=== PATIENT | female | born 1990 | race Caucasian/White ===

== ENCOUNTER 2020-03-03 13:57 | Outpatient (CLI) | payer OTHER, SELFPAY ==
[2020-03-03 15:24] LABS: Thyroid Stimulating Hormone 0.81 uIU/mL (0.36-3.74)
== END 2020-03-03 13:58 | disposition home or self-care (01) ==
LOC: CHSLAB 13:58
PROVIDERS: PCP Nurse Practitioner Family; Visit Provider Nurse Practitioner Family
DX: E03.9 Hypothyroidism, unspecified (principal)
CPT/HCPCS: 36415; 84443

== ENCOUNTER 2020-03-31 15:40 | Outpatient (CLI) | payer OTHER, SELFPAY ==
--- NOTE | ~2020-03-31 | CT_ITS ---
EXAMINATION: CT abdomen pelvis w con EXAM DATE: 03/31/2020 16:31 INDICATION: Periumbilical abdominal pain TECHNIQUE: Spiral CT of the abdomen and pelvis was performed following intravenous injection of 100 m L Omnipaque 350. Axial, coronal and sagittal images were reviewed. The dose-length product (DLP) fo r this examination was 929.70 mGy-cm. The exposure was tailored according to patient size (auto mA e xposure control), and iterative reconstruction (ASIR) was used as additional dose reduction technique . There is no prior study for comparison. FINDINGS: Small to moderate amount of free pelvic fluid which is proteinaceous in 34 Hounsfield units , could be from a recently ruptured right ovarian hemorrhagic cyst. The liver, spleen, adrenal gland s and pancreas are unremarkable. Gallbladder is unremarkable. No biliary obstruction. Mild left-si ded caliectasis without genitourinary calcification or obstruction suspected. Probably phasic. The u terus is unremarkable. The bladder is unremarkable. There is no retroperitoneal or pelvic lymphade nopathy. Small amount of abdominal wall dehiscence of the umbilicus. The appendix is normal. The stomach and small bowel are unremarkable. There is expected amount of c olonic stool. No free intraperitoneal gas. The heart is normal in size. There are no pericardial or pleural effusions. The lung bases are unremarkable. The bones are unremarkable. IMPRESSION: 1. Small to moderate proteinaceous free pelvic fluid most likely from recently ruptured right ovaria n hemorrhagic cyst. 2. Mild left-sided caliectasis probably phasic. 3. Small subumbilical abdominal wall dehiscence. Reviewed, dictated and finalized at location A. IMPRESSION: 1. Small to moderate proteinaceous free pelvic fluid most likely from recently ruptured right ovarian hemorrhagic cyst. 2. Mild left-sided caliectasis probably phasic. 3. Small subumbilical abdominal wall dehiscence.
[2020-03-31 16:11] LABS: Estimated Glomerular Filt Rate > 60
== END 2020-03-31 15:41 | disposition home or self-care (01) ==
LOC: CHSIMG 15:42
PROVIDERS: PCP Nurse Practitioner Family; Visit Provider Nurse Practitioner Family
DX: R10.33 Periumbilical pain (principal); R10.31 Right lower quadrant pain; K62.89 Other specified diseases of anus and rectum
CPT/HCPCS: 74177; Q9965

== ENCOUNTER 2020-07-19 10:28 | Outpatient (CLI) | payer OTHER, SELFPAY ==
[2020-07-19 11:12] LABS: Hematocrit 37.5 % (37.0-47.0); Hemoglobin 12.6 g/dL (12.0-15.0)
== END 2020-07-19 10:29 | disposition home or self-care (01) ==
PROVIDERS: Anesthesiology; PCP Nurse Practitioner Family; Visit Provider Obstetrics & Gynecology
DX: Z01.812 Encounter for preprocedural laboratory examination (principal); Z87.42 Personal history of other diseases of the female genital tract
CPT/HCPCS: 36415; 85014; 85018

== ENCOUNTER 2020-07-24 00:21 | Outpatient (CLI) | payer OTHER, SELFPAY ==
[2020-07-24 17:37] LABS: SARS-CoV-2 RNA PCR Negative
== END 2020-07-24 00:22 | disposition home or self-care (01) ==
LOC: ANHCOVIDDT 00:22
PROVIDERS: PCP Nurse Practitioner Family; Visit Provider Obstetrics & Gynecology
DX: Z01.812 Encounter for preprocedural laboratory examination (principal); Z20.828 Contact with and (suspected) exposure to other viral communicable diseases
CPT/HCPCS: 87635; C9803; U0003

== ENCOUNTER 2020-07-27 00:20 | Day surgery (SDC) | payer OTHER, SELFPAY ==
[2020-07-27] MEDS: ACETAMINOPHEN 500 MG TABLET 1000 MG PO (06:37)
[2020-07-27] MEDS: LACTATED RINGERS 1,000 ML 30 ML IV CONT (06:37)
[2020-07-27 06:44] VITALS: BP 115/78; PULSE 70; TEMP 36.6; O2SAT 100
--- NOTE | 2020-07-27 07:10 | WPDHPUPDATE1 ---
History and Physical Update Update Date/Time: 07/27/20 07:10 History and Physical has been reviewed, including an updated exam of the patient. There are NO changes in the patient's condition. Risks, benefits, and alternatives have been discussed and questions answered. Patient agrees to proceed with procedure.
--- NOTE | 2020-07-27 07:15 | WPDANESEPPF ---
Anes - Initial Pre Proc Eval Procedure: Operation Date: 07/27/20 07:30 Proposed Procedures p Hysteroscopy with Endometrial Ablation - Dirk Guallpa MD Date/Time: 07/27/20 07:15 Surgeon: Dirk Guallpa MD Pre Op Diagnosis: menorrhaghia Patient Data Age: 29 Gender: F Height: 5 ft 4 in Weight: 77.45 kg Last Vital Signs Temp 97.8 F 07/27/20 06:44 Pulse 70 07/27/20 06:44 BP 115/78 07/27/20 06:44 Pulse Ox 100 07/27/20 06:44 Allergies Allergy/AdvReac Type Severity Reaction Status Date / Time No Known Allergies Allergy Verified 07/14/20 13:28 Home Medications Medication Instructions Recorded Confirmed Type levothyroxine 88 mcg tablet 88 mcg PO DAILY #30 tablet 05/31/20 07/27/20 Rx Patient hx anesthesia problems: none Family hx anesthesia problems: none PMFSH Past Medical History Medical History (Updated 03/31/20 @ 20:36 by Guillermina Baxter NP) Hypothyroidism Obesity (BMI 30.0-34.9) Surgical History Surgical History History of tubal ligation 6-17-18 Family History Family History Mother Family history of hypothyroidism Family history of type 2 diabetes mellitus Hypertension Father Hypertension Social History Social History Smoking status: Never smoker Additional living arrangements comments: . 2 Children. 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 Questions were solicited and answers provided to the satisfaction of the patient/family/POA.
[2020-07-27] MEDS: KETOROLAC 30 MG/ML VIAL (*BKC) IV PUSH (07:44)
[2020-07-27 07:50] VITALS: BP 108/62; PULSE 63; RESP 12; O2SAT 100
--- NOTE | 2020-07-27 07:55 | PM.PROC ---
Procedure Note - Detailed Date of procedure: 07/27/20 Pre-op diagnosis: menorrhaghia Post-op diagnosis: same Procedure performed: Hysteroscopy D&C, endometrial ablation Description of procedure: The patient was taken the operating room. She has prepped and draped in the dorsal lithotomy position. Speculum was placed the vagina. The cervix grasped with a tenaculum. The cervix was injected at 3 and 9:00 a.m. with 1% lidocaine. The hysteroscope was inserted the intrauterine cavity through the cervix. The above findings were noted. The hysteroscope and uterine sound were used to calculate endometrial cavity length. The endometrial cavity length was entered into the device hand piece. The endometrial cavity was curettaged thoroughly with a medium-size curette. All surfaces were curettaged. The sample was sent to pathology. The device was placed in the intrauterine cavity and the array was expanded. The balloon cuff was inflated. The power and safety checks were initiated. Never completed the array was collapsed and the balloon cuff was collapsed. The device was withdrawn. The hysteroscope was inserted back into the intrauterine cavity and well desiccated endometrial cavity was observed. The speculum was removed. The tenaculum was removed. The patient tolerated procedure well. She is take covering stable condition. Anesthesia: MAC Surgeon: Dirk Guallpa MD Estimated blood loss (mL): 15 Drains: No Packing: No Pathology: yes Complications: No immediate complications Condition: stable Disposition: PACU Findings: Normal appearing vulva vagina and cervix., normal-appearing intrauterine cavity.
[2020-07-27 08:20] VITALS: BP 118/69; PULSE 70; RESP 12; O2SAT 100
[2020-07-27] MEDS: oxyCODONE HCL (*CRX) 5 MG TAB IR PO (08:39)
[2020-07-27 08:50] VITALS: BP 111/69; PULSE 56
== END 2020-07-27 09:18 | disposition home or self-care (01) ==
PROVIDERS: PCP Nurse Practitioner Family; Visit Provider Obstetrics & Gynecology
PROC: 0U5B8ZZ Destruction of Endometrium, Via Natural or Artificial Opening Endoscopic (ICD-10-PCS; CPT 58563; principal; 2020-07-27 07:30)
DX: N92.0 Excessive and frequent menstruation with regular cycle (principal); E03.9 Hypothyroidism, unspecified
CPT/HCPCS: 58563; A9270; J1100; J1885; J2250; J2405; J2704; J3010; J7030; J7120

== ENCOUNTER 2020-09-15 16:05 | Outpatient (CLI) | payer OTHER, SELFPAY ==
[2020-09-15 17:26] LABS: Thyroid Stimulating Hormone 0.88 uIU/mL (0.36-3.74)
== END 2020-09-15 16:06 | disposition home or self-care (01) ==
LOC: CHSLAB 16:07
PROVIDERS: PCP Nurse Practitioner Family; Visit Provider Family Medicine
DX: E03.9 Hypothyroidism, unspecified (principal)
CPT/HCPCS: 36415; 84443

== ENCOUNTER 2021-09-23 10:28 | Outpatient (CLI) | payer OTHER, SELFPAY ==
[2021-09-23 11:12] LABS: Thyroid Stimulating Hormone Reflex 0.88 u/IU/mL (0.36-3.74)
== END 2021-09-23 10:29 | disposition home or self-care (01) ==
LOC: CHSLAB 10:29
PROVIDERS: PCP Nurse Practitioner Family; Visit Provider Nurse Practitioner Family
DX: E03.9 Hypothyroidism, unspecified (principal)
CPT/HCPCS: 36415; 84443

== ENCOUNTER 2021-12-21 15:56 | Outpatient (CLI) | payer OTHER, SELFPAY ==
[2021-12-21 16:10] LABS: Basophils Absolute Auto 0.03 K/mm3 (0.00-0.10); Basophils Percent Auto 0.4 % (0.0-1.0); Eosinophils Absolute Auto 0.23 K/mm3 (0.02-0.50); Hematocrit 38.3 % (35.0-49.0); Hemoglobin 13.1 g/dL (12.0-15.0); Immature Granulocyte Absolute 0.03 K/mm3 (0.00-0.00); Immature Granulocyte Percent A 0.4 % (0.0-0.0); Lymphocytes Absolute Auto 2.58 K/mm3 (1.10-4.50); Lymphocytes Percent Auto 33.9 % (18.0-42.0); Mean Corpuscular HGB Conc 34.2 g/dL (32.0-36.0); Mean Corpuscular Hemoglobin 29.8 pg (27.0-31.0); Mean Platelet Volume 8.9 fl (9.2-11.8); Monocytes Absolute Auto 0.51 K/mm3 (0.10-0.90); Monocytes Percent Auto 6.7 % (2.0-11.0); Neutrophils Absolute Auto 4.2 K/mm3 (1.7-7.2); Neutrophils Percent Auto 55.6 % (50.0-70.0); Platelet Count Result 220 K/mm3 (150-420); Red Cell Distribution Width 11.9 % (11.6-14.4); White Blood Count 7.6 K/mm3 (4.8-10.8)
[2021-12-21 16:54] LABS: Alanine Aminotransferase 18 U/L (14-59); Albumin Level 3.9 g/dL (3.4-5.0); Alkaline Phosphatase 57 U/L (46-116); Anion Gap 7 mmol/L (8-16); Aspartate Amino Transferase 11 U/L (15-37); Bilirubin,Total 0.3 mg/dL (0.00-1.00); Blood Urea Nitrogen 17 mg/dL (7-18); Calcium 8.8 mg/dL (8.5-10.1); Carbon Dioxide 29 mmol/L (21-32); Chloride 103 mmol/L (98-108); Estimated Glomerular Filt Rate > 60; Glucose 90 mg/dL (70-99); Osmolality Calculated 289 mOsm/kg (285-295); Potassium 3.9 mmol/L (3.5-5.1); Sodium 139 mmol/L (136-145); Thyroid Stimulating Hormone 0.62 uIU/mL (0.36-3.74)
[2021-12-24 13:49] LABS: Vitamin D 25 Hydroxy 25 ng/mL (30-100)
== END 2021-12-21 15:57 | disposition home or self-care (01) ==
LOC: CHSLAB 15:58
PROVIDERS: PCP Nurse Practitioner Family; Visit Provider Nurse Practitioner Family
DX: R53.83 Other fatigue (principal); E03.9 Hypothyroidism, unspecified
CPT/HCPCS: 36415; 80053; 82306; 84443; 85025

== ENCOUNTER 2022-12-16 08:46 | Outpatient (CLI) | payer BC, SELFPAY | END 2022-12-16 08:47 | disposition home or self-care (01) | PROVIDERS: PCP Nurse Practitioner Family; Visit Provider Obstetrics & Gynecology | DX: N94.6 Dysmenorrhea, unspecified (principal); Z01.818 Encounter for other preprocedural examination | CPT/HCPCS: 36415; 86850; 86900; 86901 ==

== ENCOUNTER 2022-12-20 00:55 | Day surgery (SDC) | payer BC, SELFPAY ==
[2022-12-11 14:37] VITALS: BMI 31.2
--- NOTE | 2022-12-11 14:42 | PC.NURSE ---
Report to the Outpatient Waiting Room, entrance under the green pavilion located off [facility], at time 6:30 on date 12/20/22. Planned Procedure Time: 8:30. Time changes happen often and if your time is changed the preop area will call you the afternoon before. - You and your visitor will be asked to self-screen and do not enter if you have any COVID symptoms. - Only one visitor is requested with a max of two and NO children visitors are allowed at this time. - The patient visitor may be requested to leave or wait in car when not with patient due to distancing restrictions. - A mask is optional within the hospital at this time. Patients may have clear liquids (water, carbonated beverages, clear teas, apple juice) until 3 hours prior to surgery (5:30) with a maximum of 20 ounces. - No food from midnight until time of surgery Take the following medications with a SIP of water the morning of surgery: LEVOTHYROXINE DO NOT STOP ANY OF YOUR OTHER PRESCRIPTION MEDICATIONS PRIOR TO SURGERY EXCEPT THE FOLLOWING Medications to discontinue per physician: VITAMINS/SUPPLEMENTS Date to take last dose: 12/16/22 Please no make-up, nail ugandan, hairspray, perfume, deodorant, or body powder the day of surgery. No jewelry (including any body piercings) or valuables the day of surgery, leave them at home. Please take a shower or bath the night before, or the morning of, surgery with an antibacterial soap. Wear comfortable, loose fitting clothing. - Jewelry must be removed prior to entering the operating room. Rings and piercings that are not removed may be cut off. - The hospital will not accept responsibility for valuables. - Please leave all valuables, including medications, at home the day of surgery. If you are going home after surgery, a licensed public transit trolley driver must drive you home. - NO public transportation without another adult if you receive anesthesia. - We recommend that an adult stay with you for 24 hours following discharge. - We also recommend that you do not drive, make important decision, drink alcoholic beverages, or take any drugs that were not prescribed by your health care provider for at least 24 hours after your discharge time. Follow any additional instructions given to you from your surgeon. If you or anyone in your household have experienced Covid symptoms in the past week, please notify your surgeon or the nurse liaison at the phone number below for possible testing. Telephone instructions given to PT - ISABELLA ALVAREZ and asked if any additional questions and then verbalized understanding. Patient advised to call surgeon office or pre surgery nurse liaison [phone] if any additional questions.
[2022-12-20] VITALS (18 sets, daily range): BP systolic 101–117; BP diastolic 57–78; PULSE 55–91; RESP 10–18; TEMP 36.4–37.7; O2SAT 98–100
[2022-12-20] MEDS: ACETAMINOPHEN 500 MG TABLET 1000 MG PO (07:15)
[2022-12-20] MEDS: KETOROLAC 15 MG/ML VIAL (*BKC) IV PUSH (07:17)
[2022-12-20] MEDS: LACTATED RINGERS 1,000 ML 30 ML IV CONT ×2 (07:35→10:43)
--- NOTE | 2022-12-20 07:45 | P.PNAN_ITS ---
Anes - Initial Pre Proc Eval Procedure: Operation Date: 12/20/22 08:30 Proposed Procedures p Laparoscopic Hysterectomy with Bilateral Salpingectomy - Dirk Guallpa MD Date/Time: 12/20/22 07:45 Surgeon: Dirk Guallpa MD Pre Op Diagnosis: dysmenorrhea Patient Data Age: 32 Gender: F Height: 1.63 m Weight: 82.55 kg Allergies Allergy/AdvReac Type Severity Reaction Status Date / Time No Known Allergies Allergy Verified 12/11/22 14:36 Home Medications Medication Instructions Recorded Confirmed Type levothyroxine 88 mcg tablet See Rx Instructions .Route 06/22/22 12/11/22 Rx .COMPLEX #90 tabs multivit,Ca,iron,cfa-JU-gcxiyuv-caff 1 tablet PO DAILY 12/11/22 12/11/22 History 300 mg-18 mg-400 mcg-50 mg tablet (One Daily Women's Metabolism) Patient hx anesthesia problems: none Family hx anesthesia problems: none Results Review: All pre-operative results and documents have been reviewed as part of the pre- operative evaluation. [facility] Past Medical History Medical History Abdominal pain Hypothyroidism Obesity (BMI 30.0-34.9) Periumbilical pain Ruptured ovarian cyst Skin rash Surgical History Surgical History History of tubal ligation 6-17-18 Family History Family History Mother Family history of hypothyroidism Family history of type 2 diabetes mellitus Hypertension Father Hypertension Social History Social History Smoking status: Never smoker Alcohol intake: never Substance use: never Substance use type: does not use Living arrangements: with family Additional living arrangements comments: . 2 Children. 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 Informed Consent: The patient's anesthetic plan and its attendant risks and benefits were discussed with the patient/family/POA. Questions were solicited and answers provided to the satisfaction of the patient/family/POA.
--- NOTE | 2022-12-20 08:04 | WPDHPUPDATE1 ---
History and Physical Update Update Date/Time: 12/20/22 08:04 History and Physical has been reviewed, including an updated exam of the patient. There are NO changes in the patient's condition. Risks, benefits, and alternatives have been discussed and questions answered. Patient agrees to proceed with procedure.
[2022-12-20] MEDS: ceFAZolin 2 GM/D5W 50 ML 2 GM/50 ML BAG IVPB (08:32)
[2022-12-20] MEDS: ceFAZolin SODIUM 1 GM VIAL (09:11)
--- NOTE | 2022-12-20 10:41 | W.PM.PROC2 ---
Procedure Note - Detailed Date of Procedure 12/20/22 Pre-op Diagnosis dysmenorrhea Post-op Diagnosis Same Procedure Performed Total laparoscopic hysterectomy. Surgeon Dirk Guallpa MD Anesthesia General Indications painful menses Findings enlarged boggy uterus, no discrete fibroids, but uterus suggestive of myoma, normal-appearing ovaries. Normal-appearing tubes Description of Procedure This patient was taken to the operating room. She was prepped and draped in the dorsal lithotomy position after induction of general anesthesia. The uterine manipulator and Loretta cup were placed. This was done with a speculum and tenaculum. The speculum was placed. The cervix was grasped with a tenaculum. The stay sutures were placed at 3 and 9:00 a.m.. The stay sutures of 0 Vicryl were brought through the appropriately sized Loretta cup. The tip of the MICKEY manipulator was placed in the intrauterine cavity. The cup was slid into place around the cervix and into the fornices. It was locked into place. The sutures were then wrapped around the handle and tied under tension. A 5 mm skin incision was made in the left upper quadrant the abdomen. A 5 mm trocar was inserted into the intrauterine cavity under direct visualization of the scope. Pneumoperitoneum was achieved. A left lower quadrant 11 mm incision was made with scalpel. An 11 mm trocar was inserted into the anterior abdominal cavity under direct visualization the scope. A 5 mm infraumbilical incision was made with a scalpel and a 5 mm trocar was inserted the intra-abdominal cavity under direct visualization of the scope. Bilateral ureteral lysis was performed. This was done from the pelvic brim down to the uterine artery. This was done with careful dissection using sharp and blunt dissection. The fallopian tubes were removed bilaterally. The mesosalpinx around the fallopian tubes were cauterized transected with LigaSure cautery. This was done in a bilateral fashion from the ovary to the uterine cornua. The fallopian tube was transected at the uterine cornu and amputated. The tube was taken out the left lower quadrant trocar site. In a stepwise fashion along the lateral aspects of the uterus the round ligament and broad ligaments were cauterized transected down to the level of the uterine arteries. A bladder flap was created in the bladder was moved distally to the end of the cervix and over the Loretta cup. The bilateral uterine arteries were cauterized and transected. Colpotomy was then performed. In a circumferential fashion the vagina was transected using unipolar cautery. The incision was made down on the Loretta cup. The uterus and cervix were taken out through the vagina. A pneumo occluder was placed in the vagina. The vaginal cuff was closed with a 0 V lock suture in a running fashion. The pelvis was irrigated with copious amounts antibiotic irrigation. The ureters were again examined and found to be intact and flowing freely under the uterine arteries into the bladder. The bladder was intact. It was examined directly. The vagina was irrigated with Betadine solution after removal of the Pneumo occluder. The patient was taken to recovery room. She was stable condition. Sponge lap and needle counts were correct x2. Estimated Blood Loss 200 Drains Yes Packing No Pathology Yes Complications No immediate complications Condition Stable Disposition Floor
[2022-12-20] MEDS: fentaNYL CITRATE INJ (*CRX) 100 MCG/2 ML VIAL 25 MCG IV PUSH ×8 (11:13→12:01)
[2022-12-20] MEDS: ONDANSETRON INJ 4 MG/2 ML VIAL IV PUSH (12:25)
[2022-12-20] MEDS: HYDROmorphone HCL INJ (*CRX) 1 MG/ML SYR 0.25 MG IV PUSH ×2 (12:26→12:33)
[2022-12-20] MEDS: diphenhydrAMINE HCl INJ 50 MG/ML VIAL 25 MG IV PUSH (13:31)
[2022-12-20] MEDS: DEXTROSE 5%/0.45% SOD CHL 1,000 ML 125 ML IV CONT (14:06)
[2022-12-20] MEDS: KETOROLAC 30 MG/ML VIAL (*BKC) IV PUSH (14:10)
--- NOTE | 2022-12-20 14:25 | OBPPTRN ---
1346 Patient transferred to post room #289 via bed. Support person present. Oriented to unit, room, information board, admission packet and security measures. Patient verbalizes understanding.
[2022-12-20] MEDS: HYDROcodone/acetaminophen (*CRX) 5-325 MG TABLET 1 TAB PO (18:32)
[2022-12-21] MEDS: HYDROcodone/acetaminophen (*CRX) 5-325 MG TABLET 1 TAB PO ×3 (02:01→10:39)
[2022-12-21] MEDS: IBUPROFEN 600 MG TABLET PO ×2 (02:02→10:40)
[2022-12-21 04:00] VITALS: BP 113/67; PULSE 84; RESP 18; TEMP 37.2; O2SAT 99
[2022-12-21 07:00] VITALS: BP 109/70; PULSE 74; RESP 16; TEMP 36.8; O2SAT 100
--- NOTE | 2022-12-21 08:32 | PM.GYNPNOP ---
PHOTOFLASH POWDER MIXER - A/P Postoperative Procedures: Procedures Operation Date: 12/20/22 08:30 Actual Procedure Side Surgeon p Laparoscopic Hysterectomy with Bilateral Salpingectomy Bilateral Dirk Guallpa MD Postoperative day: 1 Postoperative status: doing well Postoperative plan: see orders Time Spent With Patient Time: Total time spent is greater than 50% in coordination of care (as documented) at patient's floor/unit and/or counseling patient: Time with patient: less than 15 minutes PHOTOFLASH POWDER MIXER- PN:Subj Post-Op Subjective Date/time seen: 12/21/22 08:32 Subjective: patient reports feeling better, patient has no complaints and pain is well controlled Exam Const: General: healthy appearing, comfortable and no acute distress Resp: Auscultation: clear to auscultation bilaterally, no rales, no rhonchi and no wheezes Cardio: Rate: regular rate Heart sounds: no click, no murmurs and no rubs GI: Inspection: non-distended Auscultation: normal bowel sounds Extrem: General: normal to inspection, no pedal edema and no calf tenderness PHOTOFLASH POWDER MIXER - PN: Obj Data Vital Signs Vital Signs: Vital Signs - 24 hr 12/20/22 10:43 12/20/22 10:55 12/20/22 11:00 Temperature 97.5 F L Pulse Rate 59 L 62 76 Respiratory Rate 15 15 14 Blood Pressure 105/64 113/73 113/76 Pulse Oximetry 100 100 100 Oxygen Delivery Simple Face Mask Simple Face Mask Simple Face Mask Oxygen Flow Rate 8 8 8 12/20/22 11:15 12/20/22 11:30 12/20/22 11:45 Temperature Pulse Rate 61 63 55 L Respiratory Rate 14 12 10 L Blood Pressure 113/63 117/77 108/73 Pulse Oximetry 100 99 99 Oxygen Delivery Simple Face Mask Room Air Room Air Oxygen Flow Rate 8 12/20/22 12:00 12/20/22 12:30 12/20/22 12:45 Temperature Pulse Rate 83 60 65 Respiratory Rate 16 12 18 Blood Pressure 113/68 105/61 101/58 L Pulse Oximetry 100 100 100 Oxygen Delivery Room Air Room Air Room Air Oxygen Flow Rate 12/20/22 13:00 12/20/22 13:15 12/20/22 12:15 Temperature Pulse Rate 60 59 L 64 Respiratory Rate 12 14 16 Blood Pressure 104/62 104/68 117/67 Pulse Oximetry 98 98 100 Oxygen Delivery Room Air Room Air Room Air Oxygen Flow Rate 12/20/22 13:30 12/20/22 14:30 12/20/22 13:50 Temperature 98.1 F Pulse Rate 61 58 L Respiratory Rate 14 16 Blood Pressure 104/66 113/62 Pulse Oximetry 100 100 Oxygen Delivery Room Air Room Air Oxygen Flow Rate 12/20/22 16:30 12/20/22 16:30 12/20/22 20:00 Temperature 98.7 F 99.9 F H Pulse Rate 62 91 Respiratory Rate 16 18 Blood Pressure 105/64 116/63 Pulse Oximetry 98 100 Oxygen Delivery Room Air Oxygen Flow Rate 12/20/22 20:00 12/20/22 23:40 12/20/22 23:40 Temperature 98.5 F Pulse Rate 91 90 90 Respiratory Rate 18 18 18 Blood Pressure 108/57 L Pulse Oximetry 100 99 99 Oxygen Delivery Room Air Room Air Oxygen Flow Rate 12/21/22 04:00 12/21/22 04:00 12/21/22 07:00 Temperature 98.9 F 98.2 F Pulse Rate 84 84 74 Respiratory Rate 18 18 16 Blood Pressure 113/67 109/70 Pulse Oximetry 99 99 100 Oxygen Delivery Room Air Oxygen Flow Rate 12/21/22 07:00 Temperature Pulse Rate 74 Respiratory Rate 16 Blood Pressure Pulse Oximetry 100 Oxygen Delivery Room Air Oxygen Flow Rate Intake/Output Intake/Output: Intake & Output 12/18/22 12/19/22 12/20/22 12/21/22 23:59 23:59 23:59 23:59 Intake Total 1700 Output Total 1000 Balance 700 Meds/Results Medications: Active Medications Generic Name Dose Route Start Last Admin Trade Name Freq PRN Reason Stop Dose Admin Hydrocodone Bitart/Acetaminophen 1 tab 12/20/22 13:41 12/21/22 06:55 Hydrocodone/Acetaminophen (*Crx) 5-325 Mg Tablet PO 1 tab Q3H PRN Administration Pain Rated 5 or Less Hydrocodone Bitart/Acetaminophen 1 tab 12/20/22 13:41 Hydrocodone/Acetaminophen (*Crx) 10-325 Mg Tablet PO Q3H PRN Pain Rated 6 or Greater Dextrose/Sodium Chloride 1,000 mls @ 125 mls/hr 12/20/22 13:41
--- NOTE | 2022-12-21 09:24 | WPDANESPN ---
Anes - Prog Note Post-Op Date/Time: 12/21/22 09:24 Cardiovascular status: normal Respiratory status: normal Airway patency: baseline Mental status: baseline Post-Op hydration status: normal Vital Signs: Last Vital Signs Temp 98.2 F 12/21/22 07:00 Pulse 74 12/21/22 07:00 Resp 16 12/21/22 07:00 BP 109/70 12/21/22 07:00 Pulse Ox 100 12/21/22 07:00 O2 Del Method Room Air 12/21/22 07:00 O2 Flow Rate 8 12/20/22 11:15 Pain Score (VAS): 0 I/O: Intake & Output 12/20/22 12/21/22 12/21/22 23:59 07:59 15:59 Intake Total 800 Output Total 1000 Balance -200 Post-procedural complaints: none Patient Feedback: Patient satisfied with anesthetic care.
== END 2022-12-21 11:07 | disposition home or self-care (01) ==
LOC: ANHSURGERY 06:23 → ANHOB2 13:57
PROVIDERS: PCP Nurse Practitioner Family; Visit Provider Obstetrics & Gynecology
PROC: 0UT9FZZ Resection of Uterus, Via Natural or Artificial Opening With Percutaneous Endoscopic Assistance (ICD-10-PCS; CPT 58571; principal; 2022-12-20 08:30)
DX: D25.1 Intramural leiomyoma of uterus (principal); N94.6 Dysmenorrhea, unspecified; E03.9 Hypothyroidism, unspecified; E66.9 Obesity, unspecified; Z68.32 Body mass index [BMI] 32.0-32.9, adult
CPT/HCPCS: 58571; 88307; 99199; A9270; J0690; J1100; J1170; J1200; J1885; J2250; J2405; J2704; J3010; J7030; J7120

== ENCOUNTER 2024-11-03 08:37 | Emergency (ER) | payer OTHER, SELFPAY ==
--- NOTE | 2024-11-03 08:53 | ED.URI ---
HPI - URI/Sore Throat General Chief Complaint: Upper Respiratory Infection Stated Complaint: Congestion,Cough,Fatigue Source: patient, RN notes reviewed and old records reviewed Mode of arrival: ambulatory Limitations: no limitations History of Present Illness HPI Narrative: patient presents with 5 days fever, cough, nasal congestion. She reports that her tested positive for COVID last week, shortly after that she began symptoms. She reports that she feels as though symptoms are worsening. She complains of wheezing, productive cough, hoarse voice. She does have associated body aches, headache. She reports that she has been taking NyQuil and Sudafed with moderate relief. She voices no other concerns or complaints today Related Data Home Medications ?Medication ?Instructions ?Recorded ?Confirmed ?Last Taken ?Type phentermine 15 mg capsule mg 11/03/24 Unknown History Allergies Allergy/AdvReac Type Severity Reaction Status Date / Time No Known Allergies Allergy Verified 11/03/24 08:57 Review of Systems Review of Systems: All systems reviewed & are unremarkable except as noted in HPI and below Constitutional: Constitutional: Reports no additional constitutional complaints, Reports body ache(s), Reports chills, Reports fever(s), Reports headache(s) and Reports lethargy ENT: Reports system reviewed and no additional complaints, except as documented, Reports headache(s), Reports hoarseness, Reports nasal congestion and Reports nasal discharge Cardiovascular: Cardiovascular: Reports no additional cardiovascular complaints Respiratory: Respiratory: Reports no additional respiratory complaints, Reports chest congestion, Reports cough, Reports excessive phlegm production and Reports wheezing Gastrointestinal: Gastrointestinal: Reports no additional gastrointestinal complaints PMFSH Past Medical History Medical History Abdominal pain Hypothyroidism Obesity (BMI 30.0-34.9) Periumbilical pain Ruptured ovarian cyst Skin rash Surgical History Surgical History History of tubal ligation 6-17-18 Family History Family History Mother Family history of hypothyroidism Family history of type 2 diabetes mellitus Hypertension Father Hypertension Social History Social History Smoking status: Never smoker Alcohol intake: never Substance use: never Substance use type: does not use Living arrangements: with family Additional living arrangements comments: . 2 Children. 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 There is no relevant family history pertinent to the patient complaint. Exam Const: General: cooperative, no acute distress, alert and awake Orientation/consciousness: oriented to person, oriented to place and oriented to time HENMT: Head: normal to inspection Ears: TM's normal bilaterally Mouth: Yes moist mucous membranes Throat: posterior oropharynx abnormal erythema Resp: Effort & Inspection: normal respiratory effort and able to speak in complete sentences Auscultation: clear to auscultation bilaterally, no crackles, no rales, no rhonchi and wheezes anterior Cardio: Palpation: normal PMI Rate: regular rate Rhythm: regular rhythm Heart sounds: S1 normal heart sound present and S2 normal heart sound present Neuro: General: oriented to person, oriented to place and oriented to time Cranial nerves: Yes CN's II-XII intact bilaterally Psych: Appearance: grossly normal Thought process: Normal thought process present Insight: Good insight present (Psych) Judgement: Good judgement present (Psych) Course Course Level of Care: Express Care Visit Vital Signs Vital signs: Reviewed MDM - URI/Sore Throat MDM Narrative Medical decision making narrative: patient no respiratory distress, but does have significant anterior wheezes bilaterally on auscultation. Start prednisone burst, Zithromax for added anti-inflammatory properties, albuterol inhaler. Work note provided Discharge instructions reviewed with patient, as well as provided in writing per nursing staff. The instructions also include specific and strict return/GO TO THE ER as well as f/u information. All questions have been answered, and the patient deny any further questions with discharge and discharge plan. Some parts of this dictation were generated by voice recognition software and may contain typographical and/or grammatical inaccuracies. Differential Diagnosis Differential diagnosis: Likely upper respiratory infection, viral infection and bronchitis Medical Records Attestation: I reviewed the patient's medical records. Discharge Plan Discharge Clinical Impression: Bronchitis Patient Disposition: Home, Self-Care Condition: Stable Instructions: Antibiotic Form, Acute Bronchitis (ED) Additional Instructions: Take medication as prescribed. Follow with primary care provider. Emergency department for new or worse symptoms Patient Language: Frisian Prescriptions: New azithromycin 250 mg tablet See Rx Instructions .ROUTE .COMPLEX Qty: 6 0RF Rx Instructions: For 250 mg dose pack: take 500 mg today (day 1), then 250 mg for 4 days (days 2-5) prednisone 50 mg tablet 50 mg PO DAILY Qty: 5 0RF albuterol sulfate [Ventolin HFA] 90 mcg/actuation HFA aerosol inhaler 2 puff inhalation QID PRN (Reason: shortness of breath or wheezing) Qty: 8.5 0RF No Action phentermine 15 mg capsule levothyroxine 88 mcg tablet See Rx Instructions .ROUTE .COMPLEX Qty: 90 0RF Dose Instruction: TAKE 1 TABLET BY MOUTH DAILY Rx Instructions: TAKE 1 TABLET BY MOUTH DAILY Follow-up/Referrals: Marleen,Zuleima Henson APRN [Primary Care Provider] - 2 Weeks Stand Alone Forms: Work/School Release IP Time of Disposition: 09:10
--- OUTSIDE RECORDS SUMMARY | 2024-11-03 08:54 | XMS_ITS | Clinical Summary ---
Author Organization [facility] Address [address] [place] [address]. [place], [place] [id number] [place] [address] Care Team Providers Care Drop Hammer Mechanic Name Role Phone Zuleima Hawley NP Primary Care Provider + [phone] Allergies No known active allergies Medications levothyroxine (SYNTHROID) 88 MCG tabletIndications :Acquired hypothyroidism Take 1 tablet (88 mcg total) by mouth daily. 90 tablet 12/03/19 24 Active Phentermine HCl 15 MG CapIndications:Ob esity (BMI 30-39.9),Hypothyr oidism, unspecified type Take 1 capsule by mouth every morning before breakfast. 30 capsule 10/07/20 24 Active desonide (DESOWEN) 0.05 % Ointment ointment Apply topically 2 (two) times daily. 10/16/19 24 Discontinued benzonatate (TESSALON PERLES) 100 MG capsuleIndication s:Influenza B Take 1 capsule (100 mg total) by mouth 3 (three) times daily as needed. 40 capsule 12/11/19 24 024 Discontinued nystatin (MYCOSTATIN) cream Apply topically 2 (two) times daily. Discontinued LORazepam (ATIVAN) 0.5 MG tablet Discontinued HYDROcodone-aceta minophen (NORCO) 5-325 MG tablet Take 1 tablet by mouth every 6 (six) hours. Discontinued Active Problems Problem Noted Date Diagnosed Date Dyspnea 08/08/2022 Hypothyroidism 08/08/2022 Family history of diabetes mellitus type II 10/2021 Obesity (BMI 30-39.9) 08/08/2022 Nonpurulent mastitis associated with ( [facility]/HCC) 06/23/2019 Overview (10/07/2024): Mastitis associated w/ ;Recorded Elsewhere: No Location: [facility] Source: EHR Chronic: N Practice ID: [id number] Billable Time: 01:00:00 PM Non-proteinuric hypertension of ([facility]/H CC) 03/22/2019 Overview (10/07/2024): Gestatnl htn without significant protein, comp childbirth;Practice ID: [id number] Hyperglycemia during ([facility]) 019 Overview (10/07/2024): Endo, nutritional and metab diseases comp preg, second tri;Practice ID: [id number] Hemorrhage affecting ([facility]) 018 Overview (10/07/2024): Other hemorrhage in early ;Recorded Elsewhere: No Location: [facility] Source: EHR Chronic: N Practice ID: [id number] Billable Time: 04:00:00 PM Missed ([facility]) 06/06/2017 Overview (10/07/2024): Missed ;Recorded Elsewhere: No Location: [facility] Source: EHR Chronic: N Practice ID: [id number] Billable Time: 09:15:00 AM History of tobacco use 03/13/2017 Overweight 03/13/2017 Encounters Date Type Department Care Team Description 10/07/2024 12:16 PM INTERNAL CONTROLS CONSULTANT - 10/07/2024 11:59 PM INTERNAL CONTROLS CONSULTANT Hospital Encounter [facility] [address] [place], [place] [id number] Zuleima Hawley NP Discharge Disposition: Home or Self Care (Routine Discharge) 10/07/2024 7:40 AM INTERNAL CONTROLS CONSULTANT Laboratory Only [facility] Family & Internal Medicine [facility] [address] [place] [address] Zuleima Hawley NP 10/07/2024 7:00 AM INTERNAL CONTROLS CONSULTANT Office Visit [facility] Family & Internal Medicine [facility] [address] [place] [phone] Zuleima Hawley NP Thyroid (Follow up check on my thyroid and weight) 10/07/2024 Travel 10/02/2024 MyChart Message Enc [facility] Family & Internal Medicine [facility] [address] [place] [phone] Zuleima Hawley NP Weight loss question from Last 3 Months Immunizations Name Administration Dates Next Due Dtp 04/20/1992,01/29/1992 Hib 04/20/1992,01/29/1992 Hib (Generic) 04/20/1992,01/29/1992 MMR 03/24/2019,04/20/1992 Opv 01/29/1992 Polio Opv (Generic) 01/29/1992 Tdap (Generic) 02/25/2019 Family History Medical History Relation Comments Depression Father Miscarriages / Stillbirths Maternal Grandmother Stroke Maternal Grandmother Vision loss Maternal Grandmother Depression Mother Diabetes Mother Hypertension Mother Vision loss Mother Slowly losing cl ear eyesight sees spots Relation Status Comments Father Maternal Grandmother Mother Social History Tobacco Use Types Packs/Day Years Used Date Smoking Tobacco: Never Passive Smoke Exposure: Never Smokeless Tobacco: Never Tobacco Cessation:Counseling Given: No Alcohol Use Standard Drinks/Week Comments Never 0 (1 standard drink = 0.6 oz pur e alcohol) PHQ-2 Answer Date Recorded Patient Health Questionnaire-2 Score 0 10/07/2024 Comments No Sex and Gender Information Value Date Recorded Sex Assigned at Female 08/08/2022 9:58 AM CDT Legal Sex Female 1:33 PM INTERNAL CONTROLS CONSULTANT Gender Identity Female 08/05/2022 10:21 AM CDT Sexual Orientation Straight 08/08/2022 9: 58 AM CDT Last Filed Vital Signs Vital Sign Reading Time Taken Comments Blood Pressure 125/87 10/07/2024 7:04 AM INTERNAL CONTROLS CONSULTANT Pulse 72 10/07/2024 7:04 AM INTERNAL CONTROLS CONSULTANT Temperature 36.7 ??C (98.1 ??F) 10/07/2024 7:04 AM CS T Respiratory Rate 16 10/07/2024 7:04 AM INTERNAL CONTROLS CONSULTANT Oxygen Saturation 99% 10/07/2024 7:04 AM INTERNAL CONTROLS CONSULTANT Inhaled Oxygen Concentration - - Weight 90.5 kg (199 lb 9.6 oz) 10/07/2024 7:04 A M INTERNAL CONTROLS CONSULTANT Height 162.6 cm (5' 4 ) 10/07/2024 7:04 AM INTERNAL CONTROLS CONSULTANT Body Mass Index 34.26 10/07/2024 7:04 AM INTERNAL CONTROLS CONSULTANT Plan of Treatment Upcoming Encounters Date Type Department Care Team (Late st Contact Info) Description 11/05/2024 7:20 AM INTERNAL CONTROLS CONSULTANT Office Visit [facility] Family & Internal Medicine [facility] [address] [place] [address] Zuleima Hawley, PLUMBING HARDWARE ASSEMBLER [address] [facility] [address] [facility] [place] [address] Health Maintenance Due Date Last Done Comments Annual Physical 1993 Hepatitis B Vaccines (1 of 3 - 19+ 3-dose series) 2009 PHQ-2 (Physician [place]) 10/08/2024 10/07/2024 COVID-19 Vaccine (1 - 2023-2 5 season) 2025 Postponed from 06/08 (Patient Refused) Influenza Adult (#1) 2025 Postpon ed from 07/08/2024 (Patient Refused) DTaP, Tdap and Td Vaccines ( 2 - Td or Tdap) 02/25/2029 02/25/2019, 04/20/1992, 01/29/1992 Hepatitis C Completed 02/14/2023 HPV Vaccines Aged Out No longer eligi ble based on patient's age to complete this topic Meningococcal B Vaccine Aged Out No l onger eligible based on patient's age to complete this topic Meningococcal Vaccine Aged Out No aleena bert eligible based on patient's age to complete this topic Pneumococcal Vaccine: Pediatrics (0 to 5 Years) and At-Risk Patients (6 to 64 Years) Aged Out No longer eligible b ased on patient's age to complete this topic RSV Immunizations Under 20 Months Aged Out No longer eligible b ased on patient's age to complete this topic Procedures Procedure Name Priority Date/Time Associated Diagnosis Comments COLLECTION VENOUS BLOOD VENIPUNCTURE Routine 10/07/2024 7:43 AM INTERNAL CONTROLS CONSULTANT Obesity (BMI 30-39.9) Hypothyroidism, unspecified type TSH W/REFLEX Routine 10/07/2024 7:37 AM INTERNAL CONTROLS CONSULTANT Obesity (BMI 30-39.9) Hypothyroidism, unspecified type CBC W/DIFF AUTOMATED Routine 10/07/2024 7:37 AM INTERNAL CONTROLS CONSULTANT Obesity (BMI 30-39.9) Hypothyroidism, unspecified type COMPREHENSIVE METABOLIC PANEL Routine 10/07/2024 7:37 AM INTERNAL CONTROLS CONSULTANT Obesity (BMI 30-39.9) Hypothyroidism, unspecified type HEPATITIS C ANTIBODY Routine 02/14/2023 7:29 AM CDT Encounter for hepatitis C screening test for low risk patient from Last 3 Months or Most Recently Relevant to Health Maintenance Results * TSH W/REFLEX (10/07/2024 7:37 AM INTERNAL CONTROLS CONSULTANT) TSH 0.825 0.358 - 3.74 uIU/ML 10/07/2024 1:19 PM [facility] Comment: HIGH DOSES OF BIOTIN MAY INTERFERE WITH THIS TEST RESULT. CORRELATION TO CLINICAL HISTORY AND PRESENTATION RECOMMENDED. FREE T4 NOT INDICATED 10/07/2024 7:37 AM INTERNAL CONTROLS CONSULTANT us Zuleima Hawley NP LABORATORY Final Result [facility] [address] [place] [address], [place] [phone] * (ABNORMAL) COMPREHENSIVE METABOLIC PANEL (10/07/2024 7:37 AM INTERNAL CONTROLS CONSULTANT) GLUCOSE 83 70 - 99 MG/DL 10/07/2024 1:19 PM INTERNAL CONTROLS CONSULTANT [facility] BUN 13 7 - 18 MG/DL 10/07/2024 1:19 PM [facility] CREATININE S/P/B 0.71 0.55 - 1.02 MG/DL 10/07/2024 1:19 PM [facility] SODIUM S/P/B 143 136 - 145 MMOL/L 10/07/2024 1:19 PM [facility] POTASSIUM S/P/B 4.6 3.5 - 5.1 MMOL/L 10/07/2024 1:19 PM [facility] CHLORIDE S/P/B 105 100 - 108 MMOL/L 10/07/2024 1:19 PM [facility] CO2 30.0 21 - 32 MMOL/L 10/07/2024 1:19 PM [facility] CALCIUM S/P/B 9.2 8.5 - 10.1 MG/DL 10/07/2024 1:19 PM [facility] BILIRUBIN TOTAL S/P/B 0.6 0.2 - 1.2 MG/DL 10/07/2024 1:19 PM [facility] TOTAL PROTEIN S/P/B 7.4 6.4 - 8.2 G/DL 10/07/2024 1:19 PM [facility] ALBUMIN S/P/B 4.1 3.4 - 5.0 G/DL 10/07/2024 1:19 PM [facility] AST 14(L) 15 - 37 U/L 10/07/2024 1:19 PM [facility] ALT 32 14 - 55 U/L 10/07/2024 1:19 PM [facility] ALKALINE PHOSPHATASE S/P/B 66 50 - 136 U/L 10/07/2024 1:19 PM [facility] ANION GAP 8.0 5 - 15 MMOL/L 10/07/2024 1:19 PM [facility] BUN CREATININE RATIO 18.3 6 - 26 10/07/2024 1:19 PM [facility] A/G RATIO 1.2 1.0 - 2.0 RATIO 10/07/2024 1:19 PM [facility] GFR ESTIMATE >90 >90 ML/MIN/1.7 3 M2 10/07/2024 1:19 PM [facility] Comment: NOTE: eGFR is not calculated for patients <18 years of age. This is an estimated GFR calculation using the new CKD EPI creatinine equation without race and so does not require a correction factor for race. This estimated GFR should not be used for calculating drug doses. 10/07/2024 7:37 AM INTERNAL CONTROLS CONSULTANT us Zuleima Hawley NP LABORATORY Final Result [facility] [address] [place] [address], [place] [phone] * (ABNORMAL) CBC W/DIFF AUTOMATED (10/07/2024 7:37 AM INTERNAL CONTROLS CONSULTANT) WBC 7.17 4.4 - 11.0 x10'3/uL 10/07/2024 12:33 PM [facility] RBC 4.60 4.50 - 5.10 x10'6/uL 10/07/2024 12:33 PM [facility] HGB 13.5 12.3 - 15.3 G/DL 10/07/2024 12:33 PM [facility] HCT 39.6 35.9 - 44.6 % 10/07/2024 12:33 PM [facility] MCV 86.1 80.0 - 96.0 FL 10/07/2024 12:33 PM [facility] MCH 29.3 25.3 - 30.9 PG 10/07/2024 12:33 PM [facility] MCHC 34.1 31.0 - 34.1 G/DL 10/07/2024 12:33 PM [facility] RDW 12.3(L) 12.4 - 15.1 % 10/07/2024 12:33 PM [facility] PLT 246 151 - 353 x10'3/uL 10/07/2024 12:33 PM [facility] MPV 9.3(L) 9.6 - 12.0 FL 10/07/2024 12:33 PM [facility] RBC MORPHOLOGY NORMAL 10/07/2024 12:33 PM [facility] PLT MORPH. NORMAL 10/07/2024 12:33 PM [facility] WBC MORPHOLOGY NORMAL 10/07/2024 12:33 PM [facility] LYMPHOCYTES % 28.9 15.8 - 45.0 % 10/07/2024 12:33 PM [facility] NEUTROPHILS % 62.5 42.1 - 71.9 % 10/07/2024 12:33 PM [facility] MONOCYTES % 6.3 5.7 - 12.5 % 10/07/2024 12:33 PM [facility] EOSINOPHILS 1.4 0.0 - 5.6 % 10/07/2024 12:33 PM [facility] BASOPHILS 0.3 0.0 - 1.3 % 10/07/2024 12:33 PM [facility] ABS. NEUTROPHILS 4.49 1.40 - 6.00 x10'3/uL 10/07/2024 12:33 PM [facility] IMMATURE GRANS % 0.6(H) 0.0 - 0.5 % 10/07/2024 12:33 PM [facility] ABS. LYMPHOCYTES 2.07 0.80 - 4.70 x10'3/uL 10/07/2024 12:33 PM [facility] 10/07/2024 7:37 AM INTERNAL CONTROLS CONSULTANT Zuleima Hawley NP LABORATORY Final Result [facility] [address] [place] [address], [place] [phone] * HEPATITIS C AB ([facility] ONLY) (02/14/2023 7:29 AM CDT) HEPATITIS C AB NON-REACTI VE NON-REACTI VE 02/14/2023 4:12 PM CDT [facility] 02/14/2023 7:29 AM CDT Zuleima Hawley PLUMBING HARDWARE ASSEMBLER LABORATORY Final Result Performing Organization Address City/[facility]/ZIP Co de Phone Number [facility] [address] [place] [address], [place] [phone] from Last 3 Months or Most Recently Relevant to Health Maintenance Insurance [facility] Care Teams Drop Hammer Mechanic Relationship Specialty [place] [address] [facility] [place] [address] PCP - General Nurse Practitioner Family 07/31/22
--- OUTSIDE RECORDS SUMMARY | 2024-11-03 08:54 | XMS_ITS | Encounter Summary ---
Author Organization [facility] Address [address] [place] [address]. [place], [place] [address] [place] [address] Care Team Providers Care Development Representative Name Role Phone Zuleima Hawley NP Primary Care Provider [phone] Encounter Details Date Type Department Care Team (Late st Contact Info) Description 08/25/2022 GoLarkhart Message Enc [facility] Family & Internal Medicine [address] [address] [place]uleima [place] [id number] [place] [address] [address] [facility] [place] [address] Lab results Social History Tobacco Use Types Packs/Day Years Used Date Smoking Tobacco: Never Smokeless Tobacco: Never Alcohol Use Standard Drinks/Week Comments Never 0 (1 standard drink = 0.6 oz pur e alcohol) Comments No Sex and Gender Information Value Date Recorded Sex Assigned at Female 08/08/2022 9:58 AM CDT Legal Sex Female 1:33 PM REHAB DIRECTOR OCCUPATIONAL THERAPIST Gender Identity Female 08/05/2022 10:21 AM CDT Sexual Orientation Straight 08/08/2022 9: 58 AM CDT COVID-19 Exposure Response Date Recorded In the last 10 days, have yo u been in contact with someone who was confirmed or suspected to have Coronavirus/COVID-19? No / Unsure 08/08/2022 9:44 AM CDT documented as of this encounter Plan of Treatment Upcoming Encounters Date Type Department Care Team (Late Contact Info) Description 11/05/2024 7:20 AM REHAB DIRECTOR OCCUPATIONAL THERAPIST Office Visit [facility] Family & Internal Medicine - [place] [address] [place] [phone] [place] [address] [facility] [address] [place] [address] documented as of this encounter Visit Diagnoses Not on filedocumented in this encounter Additional Health Concerns Infection Onset Date Last Indicated Resolved Time COVID-19 Rule Out 12/11/2023 12/11/2023 12/11/2023 4:11 PM REHAB DIRECTOR OCCUPATIONAL THERAPIST Influenza - Seasonal 12/11/2023 12/11/2023 024 12:33 AM CDT documented as of this encounter Care Teams Development Representative Relationship Specialty [place] [address] [facility] [address]. [place] [address] PCP - General Nurse Practitioner Family 07/31/22 documented as of this encounter
[2024-11-03 08:55] VITALS: BP 118/79; PULSE 73; RESP 18; TEMP 36.9; O2SAT 100
--- OUTSIDE RECORDS SUMMARY | 2024-11-03 08:55 | XMS_ITS | Encounter Summary ---
Author Organization [facility] Address [address] [place] [address]. [place], [place] [phone] [place] [address] Care Team Providers Care Election Judge Name Role Phone Zuleima Hawley REPAIR SERVICE DISPATCHER Primary Care Provider [phone] Encounter Details Date Type Department Care Team (Late Contact Info) Description 10/02/2024 ExSafehart Message Enc [facility] Family & Internal Medicine [facility] [address] [place] [address] [place] [address] [facility] [address] [place] [address] Weight loss question Social History Tobacco Use Types Packs/Day Years Used Date Smoking Tobacco: Never Passive Smoke Exposure: Never Smokeless Tobacco: Never Alcohol Use Standard Drinks/Week Comments Never 0 (1 standard drink = 0.6 oz pur e alcohol) PHQ-2 Answer Date Recorded Patient Health Questionnaire-2 Score 0 12/15/2022 Comments No Sex and Gender Information Value Date Recorded Sex Assigned at Female 08/08/2022 9:58 AM CDT Legal Sex Female 1:33 PM ART SPECIALIST Gender Identity Female 08/05/2022 10:21 AM CDT Sexual Orientation Straight 08/08/2022 9: 58 AM CDT documented as of this encounter Plan of Treatment Upcoming Encounters Date Type Department Care Team (Late st Contact Info) Description 11/05/2024 7:20 AM ART SPECIALIST Office Visit [facility] Family & Internal Medicine [facility] [address] [place] [address] [place] [address] [place] [address] documented as of this encounter Visit Diagnoses Not on filedocumented in this encounter Care Teams Election Judge Relationship Specialty Start [place] [address] [place] [address] PCP - General Nurse Practitioner Family 07/31/22 documented as of this encounter
--- OUTSIDE RECORDS SUMMARY | 2024-11-03 08:55 | XMS_ITS | Data Portability ---
Author Organization [facility] Address [address] [place] [address] [place] [address] Care Team Providers Care Extra Gang Supervisor Name Role Phone AVA EUFEMIA Primary Care Provider Assessment No assessment recorded. Plan of Treatment Reminders Order Date Submit Date Provider Last Modified By Organization Details Last Modified Time Details Appointments None recorded. Lab urinalysis, dipstick 2022 023 [facility], [address], [place], [address], 3 14:12:57 Referral None recorded. Procedures None recorded. Surgeries robotic assisted hysterectom y with salpingecto my (SURG) 2022 023 [facility], [address] [facility], [place], [address], 3 11:50:15 Imaging US, pelvis [address], [address], [place], [address], 3 13:17:20 US, transvagina l [address], [address], [place], [address], 3 13:17:20 Medication Orders None recorded. Patient TargetsNo targets recorded. Patient InstructionsNo instructions recorded. Reason for Referral None Reported. Results Created Date Observation Date Name Description Value Unit Range Abnormal Flag Note LastModifiedBy Organization Detail LastModifiedTime 11/03/19 23 11/03/2022 CBC W/DIF F WBC 6.9 10'3/ uL 3.6-10 .2 Not Available [facility] (Lab) [address], [place], [address], 11/04/2022 03:11:06 11/03/19 23 11/03/2022 CBC W/DIF F RBC 4.72 10'6/ uL (based on docume nted legal sex) 4.10-5 .30 Not Available [facility] (Lab) [address] [place], [address], 11/04/2022 03:11:06 11/03/19 23 11/03/2022 CBC W/DIF F HGB 13.6 g/dL (based on docume nted legal sex) 11.9-1 5.8 Not Available [facility] (Lab) [address] [place], [address], 11/04/2022 03:11:06 11/03/19 23 11/03/2022 CBC W/DIF F HCT 40.9 % (based on docume nted legal sex) 37.4-4 8.3 Not Available [facility] (Lab) [address] [place], [address], 11/04/2022 03:11:06 11/03/19 23 11/03/2022 CBC W/DIF F MCV 86.7 fL 82.0-9 9.0 Not Available [facility] (Lab) [address] [place], [address], 11/04/2022 03:11:06 11/03/19 23 11/03/2022 CBC W/DIF F MCH 28.8 pg 27.0-3 3.0 Not Available [facility] (Lab) [address] [place], [address], 11/04/2022 03:11:06 11/03/19 23 11/03/2022 CBC W/DIF F MCHC 33.3 g/dL 32.0-3 6.0 Not Available [facility] (Lab) [address], [place], [address], 11/04/2022 03:11:06 11/03/19 23 11/03/2022 CBC W/DIF F RDW 12.6 % 11.0-1 5.0 Not Available [facility] (Lab) [address], [place], [address], 11/04/2022 03:11:06 11/03/19 23 11/03/2022 CBC W/DIF F plt 249 10'3/ uL 150-45 0 Not Available [facility] (Lab) [address], [place], [address], 11/04/2022 03:11:06 11/03/19 23 11/03/2022 CBC W/DIF F MPV 10.3 fL 9.8-12 .7 Not Available [facility] (Lab) [address], [place], [address], 11/04/2022 03:11:06 11/03/19 23 11/03/2022 CBC W/DIF F NRBC's 0.0 % 0 Not Available [facility] (Lab) [address], [place], [address], 11/04/2022 03:11:06 11/03/19 23 11/03/2022 CBC W/DIF F absolute NRBCs 0.0 10'3/ uL 0 Not Available [facility] (Lab) [address] [place], [address], 11/04/2022 03:11:06 11/03/19 23 11/03/2022 CBC W/DIF F neutrophils 57.4 % 37.0-7 2.0 Not Available [facility] (Lab) [address] [place], [address], 11/04/2022 03:11:06 11/03/19 23 11/03/2022 CBC W/DIF F lymphocytes 33.0 % 16.0-4 8.0 Not Available [facility] (Lab) [address], [place], [address], 11/04/2022 03:11:06 11/03/19 23 11/03/2022 CBC W/DIF F monocytes 7.3 % 4.0-14 .0 Not Available [facility] (Lab) [address], [place], [address], 11/04/2022 03:11:06 11/03/19 23 11/03/2022 CBC W/DIF F eosinophils 1.3 % 0.0-9. 0 Not Available [facility] (Lab) [address], [place], [address], 11/04/2022 03:11:06 11/03/19 23 11/03/2022 CBC W/DIF F basophils 0.7 % 0.0-2. 0 Not Available [facility] (Lab) [address], [place], [address], 11/04/2022 03:11:06 11/03/19 23 11/03/2022 CBC W/DIF F immature granulocytes 0.3 % no define d refere nce range Not Available [facility] (Lab) [address], [place], [address], 11/04/2022 03:11:06 11/03/19 23 11/03/2022 CBC W/DIF F absolute neutrophils 4.0 10'3/ uL 1.1-6. 0 Not Available [facility] (Lab) [address], [place], [address], 11/04/2022 03:11:06 11/03/19 23 11/03/2022 CBC W/DIF F absolute lymphocytes 2.3 10'3/ uL 0.7-3. 4 Not Available [facility] (Lab) [address] [facility], [place], [address], 11/04/2022 03:11:06 11/03/19 23 11/03/2022 CBC W/DIF F absolute monocytes 0.5 10'3/ uL 0.3-1. 0 Not Available [facility] (Lab) [address] [facility], [place], [address], 11/04/2022 03:11:06 11/03/19 23 11/03/2022 CBC W/DIF F absolute eosinophils 0.1 10'3/ uL 0.0-0. 6 Not Available [facility] (Lab) [address], [place], [address], 11/04/2022 03:11:06 11/03/1911/03/2022 CBC W/DIF F absolute basophils 0.1 10'3/ uL 0.0-0. 1 Not Available [facility] (Lab) [address], [place], [address], 11/04/2022 03:11:06 11/03/1911/03/2022 CBC W/DIF F absolute immature granulocytes 0.0 10'3/ uL 0.00-0 .10 2022 1:44 AM: P indic ates parti al resul ts on a panel have been relea sed. Addit ional resul ts will follo w. 2022 1:44 AM: This resul t has been final verif ied. No addit ional or aleman ed resul ts are expec prabha. Not Available [facility] (Lab) [address] [facility], [place], [address], 11/04/2022 03:11:06 11/03/1911/03/2022 CMP(C OMPRE HENSI VE METAB OLIC PANEL ) sodium 141 mmol/ L 133-14 6 Not Available [facility] (Lab) [address], [place], [address], 11/04/2022 03:11:06 11/03/19 23 11/03/2022 CMP(C OMPRE HENSI VE METAB OLIC PANEL ) potassium 4.1 mmol/ L 3.5-5. 1 Not Available [facility] (Lab) [address], [place], [address], 11/04/2022 03:11:06 11/03/19 23 11/03/2022 CMP(C OMPRE HENSI VE METAB OLIC PANEL ) chloride 103 mmol/ L 98-107 Not Available [facility] (Lab) [address], [place], [address], 11/04/2022 03:11:06 11/03/19 23 11/03/2022 CMP(C OMPRE HENSI VE METAB OLIC PANEL ) carbon dioxide 28 mmol/ L 21-31 Not Available [facility] (Lab) [address], [place], [address], 11/04/2022 03:11:06 11/03/19 23 11/03/2022 CMP(C OMPRE HENSI VE METAB OLIC PANEL ) anion gap 10 mmol/ L 4-13 Not Available [facility] (Lab) [address], [place], [address], 11/04/2022 03:11:06 11/03/19 23 11/03/2022 CMP(C OMPRE HENSI VE METAB OLIC PANEL ) blood urea nitrogen 15 mg/dL 7-25 Not Available [facility] (Lab) [address], [place], [address], 11/04/2022 03:11:06 11/03/19 23 11/03/2022 CMP(C OMPRE HENSI VE METAB OLIC PANEL ) creatinine 0.71 mg/dL 0.60-1 .30 Not Available [facility] (Lab) [address], [place], [address], 11/04/2022 03:11:06 11/03/19 23 11/03/2022 CMP(C OMPRE HENSI VE METAB OLIC PANEL ) egfrcr (CKD-epi 2020) >90 mL/mi n/1.7 3_m2 >=60 Not Available [facility] (Lab) [address], [place], [address], 11/04/2022 03:11:06 11/03/19 23 11/03/2022 CMP(C OMPRE HENSI VE METAB OLIC PANEL ) calcium 9.3 mg/dL 8.3-10 .5 Not Available [facility] (Lab) [address], [place], [address], 11/04/2022 03:11:06 11/03/19 23 11/03/2022 CMP(C OMPRE HENSI VE METAB OLIC PANEL ) glucose 87 mg/dL 70-100 Not Available [facility] (Lab) [address], [place], [address], 11/04/2022 03:11:06 11/03/19 23 11/03/2022 CMP(C OMPRE HENSI VE METAB OLIC PANEL ) protein, total 7.4 g/dL 6.4-8. 3 Not Available [facility] (Lab) [address], [place], [address], 11/04/2022 03:11:06 11/03/19 23 11/03/2022 CMP(C OMPRE HENSI VE METAB OLIC PANEL ) albumin 4.6 g/dL 3.5-5. 0 Not Available [facility] (Lab) [address], [place], [address], 11/04/2022 03:11:06 11/03/19 23 11/03/2022 CMP(C OMPRE HENSI VE METAB OLIC PANEL ) ALT 13 units /L 9-43 Not Available [facility] (Lab) [address], [place], [address], 11/04/2022 03:11:06 11/03/19 23 11/03/2022 CMP(C OMPRE HENSI VE METAB OLIC PANEL ) alkaline phosphatase 49 units /L 34-104 Not Available [facility] (Lab) [address], [place], [address], 11/04/2022 03:11:06 11/03/19 23 11/03/2022 CMP(C OMPRE HENSI VE METAB OLIC PANEL ) AST 13 units /L 13-39 Not Available [facility] (Lab) [address] [place], [address], 11/04/2022 03:11:06 11/03/19 23 11/03/2022 CMP(C OMPRE HENSI VE METAB OLIC PANEL ) bilirubin, total 0.7 mg/dL 0.2-1. 2 Not Available [facility] (Lab) [address], [place], [address], 11/04/2022 03:11:06 11/03/19 23 11/03/2022 TSH, REFLE X FREE T4 TSH 0.99 uIU/m L 0.30-5 .33 Not Available [facility] (Lab) [address], [place], [address], 11/04/2022 03:11:07 11/03/1911/03/2022 BHCG, QUANT ITATI VE B-HCG <0.2 mIU/m L This assay was perfo rmed using [employer] ratio n reage nts and test kits. Value s obtai zaira with other assay metho ds or kits canno t be used inter aleman eably . Refer ence Range s: Non-p regna nt, preme nopau ashley women : 0.0-5 .3 mIU/m L Postm enopa usal women : 0.0-7 .0 mIU/m L Maritza l Pregn yarely: Gesta zita l Age bHCG Conc. - mIU/m L 3 Weeks 5.8 - 71.7 4 Weeks 9.5 - 750 5 Weeks 217-7 138 6 Weeks 158 - 31,79 5 7 Weeks 3,697 - 162,5 63 8 Weeks 32,06 5 - 149,5 71 9 Weeks 63,80 3 - 151,4 10 10 Weeks 46,50 9 - 186,9 77 12 Weeks 27,83 2 - 210,6 12 14 Weeks 13,95 0 - 62,53 0 15 Weeks 12,03 9 - 70,97 1 16 Weeks 9,040 - 56,45 1 17 Weeks 8,175 - 55,86 8 18 Weeks 8,099 - 58,17 6 Not Available [facility] (Lab) [address], [place], [address], 11/04/2022 03:11:07 11/03/19 23 11/03/2022 PROLA CTIN prolactin, total 9.40 NG/mL 4.79-2 3.30 This assay was perfo rmed using [employer] reage nts and test kits. Value s obtai zaira with other assay metho ds or kits canno t be used inter aleman eably . Not Available [facility] (Lab) [address] [address], [place], [address], 11/04/2022 03:11:07 11/03/19 23 11/03/2022 IMAGE GUIDE D PAP AND HPV REGAR DLESS image guided Pap, HPV regardless of Pap result SEE RESULT S BELOW CASE REPOR T: Cytol ogy Gynec ologi jone Repor t Case: [id number] Autho julissa g Provi ailyn: Thania Browning, BALBIR Colle cted: 11/03 1149 Order ing Locat ion: [place] Patho log[facility] Recei tamara: 11/06 1004 First Scree n: Cherri allen, Irma bowers, CT Speci men: Scree melissa Pap - Image d, Cervi x STATE MENT OF ADEQU ACY: Satis facto ry for evalu ation Trans forma tion zone compo nent prese nt FINAL DIAGN OSIS: Negat abel for Intra epith elial Darrion navarro or Bran rosnebaum (NIL) . Elect jose cruz garcia maldonado d by Irma Boland, CT on 2022 at 6:51 PM ----- ----- ----- ----- ----- ----- ----- ----- ----- ----- ----- ----- ----- ----- ----- ----- ----- ---- HPV RESUL TS: HPV mRNA E6/E7 : No HPV mRNA Detec prabha NOTE: This high risk HPV mRNA assay detec ts fourt een high- risk HPV types (16, 18, 31, 33, 35, 39, 45, 51, 52, 56, 58, 59, 66, 68) witho ut diffe renti ation . COMME NT: Note: This speci men was revie wed by a Cytot echno logis t and/o r Patho logis t (as indic ated in this repor t) after evalu ation using the Thinp rep Imagi ng Syste m. CLINI JONE INFOR MATIO N: Menst rual Statu s: LMP (if appli cable ): Clini jone Histo ry/Pr eviou s Pap: Type of Neopl martita (if appli cable ): Signi fican t Clini jone Findi ngs: Other Histo ry: Hormo dipesh (if appli cable ): PAP EDUCA ZITA L NOTE: The Pap Test is a scree melissa test with an inher ent false negat abel rate. Liqui d-bas ed sampl ing may decre ase, but will not elimi tish, false negat abel resul ts. A negat abel resul t does not precl ude the prese nce and/o r devel opmen t of disea se, since the prese nce of abnor mal cells in the sampl e depen ds on the locat ion of the lesio n and sampl ing techn ique. Rosie nued regul ar scree melissa is the best metho d of cance r preve ntion . If repor prabha cytol ogic findi ng do not corre late with physi jone and/o r histo rical findi ngs, furth er inves tigat ion is recom brandon d, as clini suman bowling nted. Not Available [facility] (Lab) [address], [place], [address], 11/07/2022 19:54:27 11/03/19 23 11/03/2022 TRICH OMONA S VAGIN ALLEY (RRNA ) trichomonas vaginalis ribosomal RNA (rrna) Negati ve negati ve Not Available [facility] (Lab) [address], [place], [address], 11/07/2022 19:54:28 11/03/19 23 11/03/2022 CT/GC (GARTH) , THINP REP VIAL chlamydia trachomatis, PCR Negati ve negati ve Not Available [facility] (Lab) [address] [address], [place], [address], 11/07/2022 19:54:28 11/03/19 23 11/03/2022 CT/GC (GARTH) , THINP REP VIAL neisseria gonorrhoeae, PCR Negati ve negati ve Not Available [facility] (Lab) [address] [address], [place], [address], 11/07/2022 19:54:28 11/10/19 23 11/10/2022 US, pelvi s No observ ation record ed. [email or web address] [address], [place], [address], 11/10/2022 11:47:33 11/10/19 23 11/10/2022 US, trans vagin al No observ ation record ed. [email or web address] [place] [address], [place], [address], 11/10/2022 11:47:25 11/10/19 23 11/10/2022 US, pelvi s No observ ation record ed. [email or web address] [address], [place], [address], 11/16/2022 11:10:33 Result Notes None recorded. Problems Name Problem SNOMED Code Status Onset Date Resolution Date Notes Provider Name and Address Organization Details Recorded Time Normal pregnanc y in multigra monica 28230823576 4106 Completed 201705/18/2021 Encounte r for supervis ion of other normal pregnanc y, 2nd trimeste r;Record ed Elsewher e: No [facility]at [facility]: EHR Frame Bender rudolph: N Yazti ce ID: 0001 Suleiman lable Time: 10:15:00 AM Joy collier, [facility] 1 16:41:29 Finding of contents of cervix [id number] Completed 201605/18/2021 Weeks of gestatio n of pregnanc y not specifie d;Record ed Elsewher e: No Locat ion: [facility] S ource: EHR Frame Bender rudolph: N Yazti ce ID: 0001 Suleiman lable Time: 02:00:00 PM Joy collier, [facility] 16:41:03 Embryoni c cyst of cervix, vagina and external female genitali a Completed 201805/18/2021 Embryoni c vaginal cyst;Rec orded Elsewher e: No Locat ion: [facility] S ource: EHR Frame Bender rudolph: N Yazti ce ID: 0001 Suleiman lable Time: 02:30:00 PM Joy collier, [facility] 16:40:37 Gestatio n period, 32 weeks [id number] Completed 201805/18/2021 32 weeks gestatio n of pregnanc y;Record ed Elsewher e: No Locat ion: [facility] S ource: EHR Frame Bender rudolph: N Yazti ce ID: 0001 Suleiman lable Time: 02:00:00 PM Joy collier, [facility] 16:41:56 Educatio n Completed 201905/18/2021 Encounte r for other general counseli ng and advice on contrace ption;Re corded Elsewher e: No Locat ion: [facility] S ource: EHR Frame Bender rudolph: N Yazti ce ID: 0001 Suleiman lable Time: 01:15:00 PM Joy collier, [facility] 16:41:16 Amenorrh ea [id number] Completed 201605/18/2021 Amenorrh ea, unspecif ied;Juvenal rded Elsewher e: No [facility]: EHR Frame Bender rudolph: N Yazti ce ID: 0001 Suleiman lable Time: 08:45:00 AM Joy collier, [facility] 16:40:25 Developm ental disorder Completed 201805/18/2021 Malforma tion of placenta , unspecif ied, third trimeste r;Record ed Elsewher e: No Locat ion: [facility] S ource: EHR Frame Bender rudolph: N Matilde ce ID: 0001 Suleiman lable Time: 01:30:00 PM Joy collier, [facility] 16:40:56 Uterine size for dates discrepa ncy Completed 201605/18/2021 Uterine size-slime e discrepa ncy, first trimeste r;Record ed Elsewher e: No Locat ion: [facility] S ource: EHR Frame Bender rudolph: N Yazfroylan ce ID: 0001 Suleiman lable Time: 02:00:00 PM Joy collier, [facility] 16:40:44 Pregnanc y detectio n examinat ion Completed 201705/18/2021 Encounte r for pregnanc y test, result positive ;Recorde d Elsewher e: No Locat ion: [facility] S ource: EHR Frame Bender rudolph: N Yazti ce ID: 0001 Suleiman lable Time: 01:15:00 PM Joy collier, [facility] 16:41:50 Procedur e on genitour inary system Completed 201805/18/2021 Encounte r for surgical aftercar e followin g surgery on the genitour inary system;R ecorded Elsewher e: No Locat ion: [facility] S ource: EHR Frame Bender rudolph: N Yazti ce ID: 0001 Suleiman lable Time: 01:30:00 PM Joy collier, [facility] 16:40:21 Postoper ative care Completed 201805/18/2021 Encounte r for surgical aftercar e followin g surgery on the genitour inary system;R ecorded Elsewher e: No [facility] S ource: EHR Frame Bender rudolph: N Yazti ce ID: 0001 Suleiman lable Time: 01:30:00 PM Joy collier, [facility] 16:40:23 Gestatio n period, 36 weeks [id number] Completed 201805/18/2021 36 weeks gestatio n of pregnanc y;Record ed Elsewher e: No Locat ion: [facility] S ource: EHR Frame Bender rudolph: N Yazti ce ID: 0001 Suleiman lable Time: 01:30:00 PM Joy collier, [facility] 16:41:37 Finding of menstrua l bleeding Completed 201905/18/2021 Menorrha carol;Juvenal rded Elsewher e: No Locat ion: [facility] S ource: EHR Frame Bender rudolph: N Practi ce ID: 0001 Suleiman lable Time: 01:15:00 PM Joy collier, [facility] 16:40:36 Dysuria [id number] Completed 201605/18/2021 Dysuria; Recorded Elsewher e: No [facility]: EHR Frame Bender rudolph: N Practi ce ID: 0001 Suleiman lable Time: 02:30:00 PM Joy collier [facility] 16:41:33 Hemorrha gic complica tion of pregnanc y [id number] Completed 201705/18/2021 Other hemorrha ge in early pregnanc y;Record ed Elsewher e: No Locat ion: [facility] S ource: EHR Frame Bender rudolph: N Matilde ce ID: 0001 Suleiman lable Time: 04:00:00 PM Joy collier, [facility] 16:40:15 Nonpurul ent mastitis associat ed with lactatio n [id number] Completed 201805/18/2021 Mastitis associat ed w/ lactatio n;Record ed Elsewher e: No Locat ion: [facility] S ource: EHR Frame Bender rudolph: N Yazti ce ID: 0001 Suleiman lable Time: 01:00:00 PM Jyo collier, [facility] 16:40:19 Antenata l screenin g for malforma tion Completed 201805/18/2021 Encounte r for antenata l screenin g for malforma tions;Re corded Elsewher e: No Locat ion: [facility] S ource: EHR Frame Bender rudolph: N Yazti ce ID: 0001 Suleiman lable Time: 01:00:00 PM Joy collier, [facility] 16:41:47 Rubella screenin g status [id number] Completed 201705/18/2021 Encounte r for antenata l screenin g, unspecif ied;Juvenal rded Elsewher e: No Locat ion: [facility] S ource: EHR Frame Bender rudolph: N Yazti ce ID: 0001 Suleiman lable Time: 10:15:00 AM Joy collier [facility] 16:41:01 Gestatio n period, 11 weeks [id number] Completed 201605/18/2021 11 weeks gestatio n of pregnanc y;Record ed Elsewher e: No Locat ion: [facility] S ource: EHR Frame Bender rudolph: N Yazti ce ID: 0001 Suleiman lable Time: 09:15:00 AM Joy Bran null, [facility] 16:41:34 Missed miscarri age [id number] Completed 201605/18/2021 Missed ;Recorde d Elsewher e: No [facility]at [facility] S ource: EHR Frame Bender rudolph: N Yazti ce ID: 0001 Suleiman lable Time: 09:15:00 AM Joy Bran null, [facility] 16:40:33 Threaten ed miscarri age [id number] Completed 201605/18/2021 Threaten ed ;Recorde d Elsewher e: No Locat ion: [facility] S ource: EHR Frame Bender rudolph: N Yazti ce ID: 0001 Suleiman lable Time: 09:45:00 AM Joy Bran null, [facility] 16:41:36 Gestatio n period, 9 weeks [id number] Completed 201705/18/2021 9 weeks gestatio n of pregnanc y;Record ed Elsewher e: No [facility]: EHR Frame Bender rudolph: N Yazti ce ID: 0001 Suleiman lable Time: 04:00:00 PM Joy Bran null, [facility] 16:41:59 Gestatio n period, 24 weeks [id number] Completed 201805/18/2021 24 weeks gestatio n of pregnanc y;Record ed Elsewher e: No [facility] S ource: EHR Frame Bender rudolph: N Yazti ce ID: 0001 Suleiman lable Time: 11:15:00 AM Joymaximiliano collier, [facility] 16:41:09 Gestatio n period, 28 weeks [id number] Completed 201805/18/2021 28 weeks gestatio n of pregnanc y;Record ed Elsewher e: No Locat ion: [facility] S ource: EHR Frame Bender rudolph: N Practi ce ID: 0001 Suleiman lable Time: 08:45:00 AM Joy collier, [facility] 16:41:57 Developm ental disorder Completed 201805/18/2021 Malforma tion of placenta , unspecif ied, second trimeste r;Record ed Elsewher e: No Locat ion: [facility] S ource: EHR Frame Bender rudolph: N Practi ce ID: 0001 Suleiman lable Time: 11:15:00 AM Joy collier, [facility] 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 16:41:10 Secondar y amenorrh ea [id number] Completed 201605/18/2021 Secondar y amenorrh ea;Pract ice ID: [id number] Joy collier, [facility] 16:40:30 Pregnanc y, childbir th and puerperi um finding Completed 201805/18/2021 Oth pregnanc y related conditio ns, second trimeste r;Practi ce ID: [id number] Joy collier, [facility] 16:40:51 Prematur e labor [id number] Completed 201805/18/2021 labor without delivery , second trimeste r;Practi ce ID: [id number] Joy collier, [facility] 16:41:41 Hypergly cemic disorder in pregnanc y [id number] Completed 201805/18/2021 Endo, nutritio nal and metab diseases comp preg, second tri;Prac lul ID: [id number] Joy Sotomayor nando, [facility] 16:40:41 Gestatio n period, 26 weeks [id number] Completed 201805/18/2021 26 weeks gestatio n of pregnanc y;Practi ce ID: 0001 Joy Sotomayor nando, [facility] 16:41:31 Pregnanc y-induce d hyperten bhupendra Completed 201805/18/2021 Gestatio nal htn w/o signific ant proteinu tristin, third trimeste r;Practi ce ID: 0001 Joy Sotomayor nando, [facility] 16:40:42 Non-prot einuric hyperten bhupendra of pregnanc y [id number] Completed 201805/18/2021 Gestatnl htn without signific ant protein, comp childbir th;Pract ice ID: 0001 Joy collier, [facility] 16:41:07 Lacerati on of female perineum Completed 201805/18/2021 Second degree perineal lacerati on during delivery ;Practic e ID: 0001 Joy collier, [facility] 16:40:57 Single live [id number] Completed 201805/18/2021 Single live ;Pr actice ID: 0001 Joy Sotomayor nando, [facility] 16:40:39 Gestatio n period, 37 weeks [id number] Completed 201805/18/2021 37 weeks gestatio n of pregnanc y;Practi ce ID: 0001 Joy collier, [facility] 16:41:27 Steriliz ation procedur e Completed 201805/18/2021 Encounte r for steriliz ation;Pr actice ID: 0001 Joy collier, [facility] 16:41:23 Lochia finding Completed 201805/18/2021 Encounte r for routine postpart um follow-u p;Practi ce ID: 0001 Joy collier, [facility] 16:41:26 Vaginola bial hernia Completed 201805/18/2021 Other specifie d noninfla mmatory disorder s of vagina;P ractice ID: 0001 Joy collier [facility] 16:41:05 Antenata l screenin g Completed 201705/18/2021 Encounte r for antenata l screenin g for nuchal transluc ency;Pra ctice ID: 0001 Joy collier, [facility] 16:40:59 Problem Notes None recorded. Procedures Surgical History Date Name Laterality Status Provider Name and Address Organization Details Recorded Time 12/21/19 23 ROBOTIC ASSISTED HYSTERECTOMY WITH SALPINGECTOMY (SURG) completed Brenda Zamora [facility] 12/21/2022 10:39:21 05/23/20 21 Date of Last Pap Smear completed Meche Ng [facility] 11/03/2022 10:51:47 06/08/20 20 Endometrial Biopsy completed Rhea Weston CNM [address], [place], [address], [facility] 06/08/2020 11:40:05 10/13/19 20 Endometrial Ablation completed Morena Del Real [facility] 11/21/2022 10:35:28 05/08/20 19 excision of cyst of vagina completed Catarinaorly [place] [facility] 06/08/2020 11:02:26 03/08/20 19 [facility] 06/07/2020 21:39:46 05/08/20 17 Dilation and Curettage [facility] 06/07/2020 21:39:02 [facility] 10:50:13 [facility]/03[facility]2022 10:50:13 Endometrial Ablation completed Morena Del Real [facility] 12/13/2022 14:07:51 Imaging Results Imaging Date Name Status LastModified by Organization Details LastModified Time 11/10/2022 US, pelvis completed [email or web address] [place] [address], [place], [address], 11/10/2022 11:47:33 11/10/2022 [email or web address] [address], [place], [address], 11/10/2022 11:47:25 11/10/2022 US, pelvis completed [email or web address] [address], [place], [address], 11/16/2022 11:10:33 Procedure Notes None recorded. Medical Equipment None Reported. Allergies No known drug allergies Medications Name Sig Start Date Stop Date Status Note LastModified by Organization Details LastModified Time amoxicill in 500 mg capsule TAKE 1 CAPSULE BY MOUTH EVERY 12 HOURS FOR 10 DAYS 05/18 completed Not Available Not Available Not Available dicloxaci llin 500 mg capsule 04/08 completed Not Available Not Available Not Available trazodone 50 mg tablet TAKE 1 TABLET BY MOUTH EVERY DAY AT BEDTIME NEEDED FOR SLEEP 11/03 completed Not Available Not Available Not Available triamcino lone acetonide 0.5 % topical cream APPLY EXTERNAL LY TO THE AFFECTED AREA DAILY FOR 14 DAYS 05/18 completed Not Available Not Available Not Available hydrocodo ne 5 mg-acetam inophen 325 mg tablet TAKE 1 TABLET BY MOUTH EVERY 6 HOURS active Not Available Not Available No t Available omeprazol e 40 mg capsule,d elayed release 04/08 completed Not Available Not Available Not Available levothyro xine 75 mcg tablet take 1 tablet by oral route every day 06/08 completed Not Available Not Available Not Available levothyro xine 88 mcg tablet TAKE 1 TABLET BY MOUTH DAILY active Not Available Not Available No t Available amoxicill in 875 mg tablet 04/08 completed Not Available Not Available Not Available cephalexi n 500 mg capsule take 1 capsule by oral route every 8 hours for 1 week 04/08 completed Not Available Not Available Not Available nystatin 100,000 unit/gram topical cream APPLY TOPICALL Y TO THE AFFECTED AREA TWICE DAILY active Not Available Not Available No t Available promethaz ine 25 mg tablet take 1 tablet by oral route every 4 - 6 hours as needed 08/19 completed Prescrib ed Elsewher e: No [facility] By: moses Umana r DateTime : 04/30/20 17 08:45:00 AM Not Available Not Available Not Available ergocalci ferol (vitamin D2) 1,250 mcg (50,000 unit) capsule TAKE 1 CAPSULE BY MOUTH ONCE WEEKLY. active Not Available Not Available No t Available ibuprofen 600 mg tablet Take 1 tablet 3 times a day by oral route for 7 days. 05/05 completed Not Available Not Available Not Available Bactrim DS 800 mg-160 mg tablet take 1 tablet by oral route every 12 hours 08/19 completed Prescrib ed Elsewher e: No [facility] By: moses Umana r DateTime : 06/13/20 17 02:30:00 PM Not Available Not Available Not Available Tirosint 75 mcg capsule take 1 capsule by oral route every day 05/18 completed Prescrib ed Elsewher e: Yes Loca tion: Loi fofana [facility] odify By: [email or web address] z Encoun ter DateTime : 03/21/20 01:00:00 PM Not Available Not Available Not Available 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 05/18 completed Not Available Not Available Not Available Slynd 4 mg (28) tablet take 1 tablet by oral route every day at the same time each day 05/18 completed Prescrib ed Elsewher e: No Locat ion: [facility] odify By: nevaeh haynes DateTime : 01/08/20 01:15:00 PM Not Available Not Available Not Available Vitals Date Recorded Body height Body mass index (BMI) Body weight Systolic blood pressure Diastolic blood pressure Provider Name and Address Organization Details Last Updated DateTime 11/21/2022 163.83 cm 31.3 kg/m2 10584.59 g 124 mm[Hg] 77 mm[Hg] [facility] 3 10:34:59 Date Recorded Body height Body mass index (BMI) Body weight Systolic blood pressure Diastolic blood pressure Provider Name and Address Organization Details Last Updated DateTime 12/13/2022 163.83 cm 31.6 kg/m2 60562.77 g 121 mm[Hg] 80 mm[Hg] [facility] 3 14:07:45 Date Recorded Body height Body mass index (BMI) Body weight Systolic blood pressure Diastolic blood pressure Provider Name and Address Organization Details Last Updated DateTime 12/27/2022 163.83 cm 30.8 kg/m2 06561.81 g 123 mm[Hg] 78 mm[Hg] Morena Del Real [facility] 14:05:38 Social History Question Answer Notes LastModified by Organizat ion Details LastModified Time Tobacco Smoking Status Former Smoker [facility] nando, [facility] 12/27/2022 13:57:31 Do You Have An Advance Directive? No [email or web address] Information not available 05/23/2021 What Is Your Level Of Alcohol Consumption? None [email or web address] Information not available 05/23/2021 Are You Blind Or Do You Have Difficulty Seeing? No [email or web address] Information not available 05/23/2021 What Is Your Level Of Caffeine Consumption? Moderate Information not available 11/03/2022 How Much Tobacco Do You Chew? None Information not available 11/03/2022 In The 14 Days Before Symptom Onset, Have You Had Close Contact With A Laboratory-confir med COVID-19 While That Case Was Ill? No Information not available 05/23/2021 In The 14 Days Before Symptom Onset, Have You Had Close Contact With A Person Who Is Under Investigation For COVID-19 While That Person Was Ill? No [email or web address] Information not available 05/23/2021 Have You Been To An Area Known To Be High Risk For COVID-19? No [email or web address] Information not available 05/23/2021 Are You Deaf Or Do You Have Serious Difficulty Hearing? No [email or web address] Information not available 05/23/2021 What Type Of Diet Are You Following? REGULAR [email or web address] Information not available 05/23/2021 Do You Or Have You Ever Used E-cigarettes Or Vape? Never Used Electronic Cigarettes [email or web address] Information not available 12/27/2022 What Is The Highest Grade Or Level Of School You Have Completed Or The Highest Degree You Have Received? 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 No [email or web address] Information not available 05/23/2021 What Was The Date Of Your Most Recent Tobacco Screening? 06/08/2020 [email or web address] Information not available 12/27/2022 Do You Use Protection During Sex? No [email or web address] Information not available 05/23/2021 Do You Use Your Seat Belt Or Car Seat Routinely? Yes Information not available 05/23/2021 Do You Have Smoke And Carbon Monoxide Detectors In Your Home? Yes [email or web address] Information not available 05/23/2021 Do You Or Have You Ever Used Smokeless Tobacco? Never Used Smokeless Tobacco Information not available 12/27/2022 How Much Tobacco Do You Smoke? No Information not available 06/08/2020 Do You Feel Stressed (tense, Restless, Nervous, Or Anxious, Or Unable To Sleep At Night)? [id number] Information not available 11/03/2022 Do You Use Any Illicit Or Recreational Drugs? No [email or web address] Information not available 05/23/2021 Do You Use Sunscreen Routinely? No Information not available 05/23/2021 How Many Years Have You Smoked Tobacco? 0 Information not available 11/03/2022 Have You Used IV Drugs? No [email or web address] Information not available 05/23/2021 Sex: Unknown Functional Status Question Answer Note LastModified by Organizat ion Details LastModified Time Do you have difficulty walking or climbing stairs? No [email or web address] Information not available 12/27/2022 Are you able to walk? [email or web address] Information not available 05/23/2021 Are you able to care for yourself? Yes [email or web address] Information not available 12/27/2022 Do you have difficulty dressing or bathing? No [email or web address] Information not available 12/27/2022 What is your exercise level? Moderate Information not available 11/03/2022 Mental Status None recorded. Family History Relationship Description Onset Age of this Age Resolved Age Notes LastModified by Organization Details LastModified Time Sister Suspected cervical cancer Ovaria n cancer [email or web address] Not available 12/27/2022 13:57:30 Mother Diabetes mellitus [email or web address] Not available 2019 10:15:09 Mother Hypertensive disorder [email or web address] Not available 2022 10:28:49 Mother Disorder of thyroid gland [email or web address] Not available 2019 10:15:26 Medical History Condition Response Allergies (Food, seasonal, environmental ) N Other N Breast Cancer N Drug/Latex Allergies/Reactions N Blood Transfusion N Dermatologic Disorders N Lung Disease N Defects or Inherited Disease N Breast Problem N Gestational Diabetes N Hematologic disorders N Anesthesia Complications N History of STI N Deep Vein Thrombosis N Polycystic ovary syndrome N Anxiety Disorder Y Autoimmune disease N Arthritis N Infertility N Polyps N Acid Reflux (GERD) N History of abnormal pap N Cancer N Stroke N Varicosities N Neurologic/Epilepsy N Endometriosis N High Cholesterol N Headaches N Fibromyalgia N Kidney Disease N Heart Problems N Kidney or Bladder Problems N Thyroid Problems Y GI Problems N Eating Disorder N Anemia N Art (IVF or FET) N Psychiatric Illness N Ovarian Cancer N Diabetes N Pulmonary (TB, Asthma) N Hepatitis/Liver Disease N No Past Medical History N Eczema N Urinary Tract Infection N Abuse/Domestic Violence N Asthma N Trauma/Violence N Depression/ depression N Heart Disease N Pre-Eclampsia N Hypertension N Osteoporosis N Thrombophilias N Gynecological History Statement/Question Response Abnormal Pap N Flow Moderate Date of LMP 10/06/2022 On BCP's at Conception? N N Was last menstrual period normal N STIs/STDs N HPV Vaccine Y Duration of Flow (days) 14 Current Control Method Hysterectom y Age at First Child 19 Are cycles usually normal Y Sexually Active? Y Menses Monthly Y Age of first menstrual cycle 11 Date of Last Pap Smear 05/23/2021 Sexual Problems? Y LMP Approximate N Obstetrics History GPAL:G 4 P 3 0 1 3 Type Value Full Term 3 Spontaneous 1 Living 3 Total 4 Past Encounters Encounter ID Performer Location Encounter Start Date Encounter Closed Date Diagnosis/Indication Diagnosis SNOMED-CT Code Diagnosis ICD10 Code Diagnosis Note [id number] JAMILAH [facility] [address] [address] 04/08/2020 10:08:44 04/08/2020 10:57:36 Abnormal uterine bleeding [id number] 9100 N93.9 Patient is here today with concerns of recently ruptured cyst via CT scan from last . Has Hx of ovarian cysts. [place] sx's. Went to PCP who ordered CT scan. CT was voiced possible rupture cyst & free fluid present. She is here today wanting to know next steps. Started another menses. No excessive bleeding but still has period like flow. Some vag d/c with odor. Neg N/V/D/C We agreed to the following: Exam warrants additional imaging pelvic US. Will schedule Start Xulane patch. Instructio ns & samples reviewed. Vag cultures sent Consider labs if AUB not fully resolved or additional findings warrant this testing. RTO TVUS w/ OV. RTO x 3mos med/bp check Xulane Pain. Ibuprofen coupled with tylenol prn Ice/Heat Patient is to contact office or go to nearest ED/Urgent care if fever >/= 100.1, pain, excessive bleeding, unusual drainage or swelling in area of concern; or experienci ng worsening sx's or new onset of concerning sx's. Understand ing verbalized . All questions answered to patient satisfacti on. Time spent in visit is a total of 26mins with at least 50% of visit consisting of counseling and review of plan of care. [id number] Evelia Rust [facility] [address],[place] [address] 05/05/2020 09:23:37 05/05/2020 10:19:18 Cyst of left ovary [id number] 9073730 N83.202 TVUS was reviewed today. She is still symptomati c so we agreed to MD consult. She would like to remain on Xulane patch for the time being as it is helping with irregular cycle bleeding she was experienci ng. Patient is to contact office or go to nearest ED/Urgent care if fever >/= 100.1, pain, excessive bleeding, unusual drainage or swelling in area of concern; or experienci ng worsening sx's or new onset of concerning sx's. Understand ing verbalized . All questions answered to patient satisfacti on. Time spent in visit is a total of 15 mins with at least 50% of visit consisting of counseling and review of plan of care. [id number] Lilly Rice [place] [address],[facility] [place] [address] 05/05/2020 09:23:59 05/05/2020 10:09:53 Pain in pelvis 99681086 R10.2 N83.291 [id number] Carlton Guallpa MD [place] [address],[facility] [place] [address] 05/19/2020 17:14:54 05/19/2020 18:25:50 Cyst of ovary 34487222 N83.209 Menorrhagia 563239022 N9 2.0 this patient is a 29-year-ol d female presents for follow-up on pelvic pain and ovarian cyst And severe menorrhagi a.. She had an ultrasound in follow-up to a CT that showed a ovarian cyst. We looked at the images together. We spent over 20 minutes face-to-fa ce. With 50% of that was counseling . We talked about the significan ce of ovarian cyst, the etiology, natural history, treatment. We agreed to repeat the ultrasound in 8 weeks. Patient has severe menorrhagi a. She changes a pad or tampon every hour. She has accidents. She recently started her the control patch. She has had 1 period since the started the patch. This was a very heavy. As well. We agreed observe 2 more menses. If she continues to have heavy bleeding on this 3rd menses using the patch we will consider other treatment options. We talked today about ablation. Talked about other medical treatment options including tranexamic acid. [id number] Rhea Weston CNM [place] [address] [address] 06/08/2020 10:34:03 06/08/2020 11:55:21 Menorrhagia 915033574 N92.0 plan for hysterosco py and ablation at [facility] reviewed procedure and handout given [id number] Carlton Guallpa MD [place] [address] [address] 07/21/2020 16:43:47 07/21/2020 18:18:10 Menorrhagia 308353547 N92.0 this patient is a 29-year-ol d female presents for preoperati ve care. She had an ultrasound that we reviewed. It showed a normal uterus. We have agreed to perform endometria l ablation. She understand s the procedure and the risk. She understand s the risks, benefits, and alternativ es. She has completed the informed consent process and is ready to proceed. [id number] Lilly Rice [place] [address] [address] 07/21/2020 16:43:47 07/21/2020 18:18:10 Irregular intermenstrual bleeding 04805129 N92.1 [id number] Carlton Guallpa MD [place] [address],[place] [address] 07/28/2020 09:45:10 07/28/2020 09:46:21 [id number] Carlton Guallpa MD [place] [address],[place] [address] 08/03/2020 10:14:14 08/03/2020 14:05:22 Postoperative care [id number] Z48.89 this patient is a 29-year-ol d female presents forpostopf ollow-up. She is 1 weekpostop from a tubal ligation and endometria l ablation. She is recovering normally. She has no complaints . She has some watery vaginal discharge that resolved. She denies any foul-smell ing vaginal discharge. She denies any nausea, vomiting, fever, chills. She will follow up as needed. [id number] Maria E Garcia [place] [address],[place] [address] 05/23/2021 13:57:08 05/23/2021 14:33:55 Gynecologic examination 77608838 Z01.419 Z11.51 Take Calcium with Vitamin D 1200mg daily if not receiving in daily diet. It is strongly advised to have an annual flu shot and up can obtain at most pharmacies . If you have not had a TDap shot in the last 10 years you should obtain one as well. Discussed with patient & provided with informatio n regarding Gardisil vaccine to prevent the 4 strains for HPV that cause cervical cancer if under age 26. Encourage safe sexual practices, to use condoms and limit partners if not already in a monogamous relationsh ip. Do monthly self breast exams. Have mammogram yearly or every other year depending on family history. BRCA testing is now available for patients with strong genetic history of female cancer. If interested contact the office. Engage in daily exercise of low impact aerobic exercise 45-60 minutes 4-5 times weekly. Avoid tobacco and illicit drugs as well as using moderation with alcohol intake less than 1-2 8 oz beverages daily. This lifestyle behavior pattern will lead to less health conditions and longer life span. If BMI greater than 25 weight watchers or dietary consult advised. Patient received above instructio ns, and questions have been answered. If you have any questions please call or respond to this email. Patient was made aware of the patient portal and may obtain a paper copy of today's plan if desired. [id number] Evelia Rust [facility] [address] [address] 11/03/2022 10:28:44 11/06/2022 16:21:54 Gynecologic examination 40692600 Z01.419 Take Calcium with Vitamin D 1200mg daily if not receiving in daily diet. It is strongly advised to have an annual flu shot and up can obtain at most pharmacies . If you have not had a TDap shot in the last 10 years you should obtain one as well. Discussed with patient & provided with informatio n regarding Gardisil vaccine to prevent the 4 strains for HPV that cause cervical cancer if under age 26. Encourage safe sexual practices, to use condoms and limit partners if not already in a monogamous relationsh ip. Do monthly self breast exams. Have mammogram yearly or every other year depending on family history. BRCA testing is now available for patients with strong genetic history of female cancer. If interested contact the office. Engage in daily exercise of low impact aerobic exercise 45-60 minutes 4-5 times weekly. Avoid tobacco and illicit drugs as well as using moderation with alcohol intake less than 1-2 8 oz beverages daily. This lifestyle behavior pattern will lead to less health conditions and longer life span. If BMI greater than 25 weight watchers or dietary consult advised. Patient received above instructio ns, and questions have been answered. If you have any questions please call or respond to this email. Patient was made aware of the patient portal and may obtain a paper copy of today's plan if desired.Pa p/hpv sentSTD Screen sentGeneti c Screen discussedC olon Screen naDexa Screen naRoutine Labs orderedMam mo na Menorrhagia [id number] N9 2.0 Update USUpdate lab work??MD consult since has had previous ablation for this issue which has improved but still not ideal & disrupting her quality of life.Will reach out with results since likely will need MD consult. [id number] Marie De Leon [place] [address] [address] 11/10/2022 10:52:52 11/10/2022 11:43:37 Menorrhagia 282188894 N92.0 this patient is a 29-year-ol d female presents for preoperati ve care. She had an ultrasound that we reviewed. It showed a normal uterus. We have agreed to perform endometria l ablation. She understand s the procedure and the risk. She understand s the risks, benefits, and alternativ es. She has completed the informed consent process and is ready to proceed. [id number] Carlton Guallpa MD [place] [address] [address] 11/21/2022 10:01:10 11/21/2022 11:22:19 Menorrhagia 664250104 N92.0 Dysmenorrhea 071236821 N 94.6 32-year-ol d female with recurrent severe dysmenorrh ea and menorrhagi a. She had endometria l ablation. She appears on ultrasound to possibly have an hematometr a. Patient is failed endometria l ablation now. She has previously failed medical treatments . We talked about treatment options. We talked about the cure with definitive surgery. We agreed to move forward with robotic assisted hysterecto my with bilateral salpingect aruna. Spent more than 40 minutes face-to-fa ce. We discussed the procedure in detail. We discussed her options in detail. We discussed revisiting medical and procedural treatments . Talked about the risk of the surgery in detail. We made a decision today to perform surgery. [id number] Carlton Guallpa MD [place] [address] [address] 12/13/2022 13:58:21 12/14/2022 12:48:10 Menorrhagia 928785096 N92.0 Dysmenorrhea 172956064 N 94.6 this patient is a 32-year-ol d female who presents for preoperati ve care. She has severe menorrhagi a and dysmenorrh ea. We have agreed to perform total laparoscop ic hysterecto my and bilateral salpingect aruna. She has failed endometria l ablation. She understand s risks, benefits, and alternativ es. She has completed the informed consent process is ready to proceed. [id number] Carlton Guallpa MD [place] [address] [address] 12/27/2022 13:56:33 12/27/2022 17:06:40 Urinary symptoms [id number] R39.9 Postoperative care [id number] Z48.89 this patient is a 29-year-ol d female presents for postop follow-up. She is 1 week postop from a tubal ligation and endometria l ablation. She is recovering normally. She has no complaints . She has some watery vaginal discharge that resolved. She denies any foul-smell ing vaginal discharge. She denies any nausea, vomiting, fever, chills. She will follow up as needed. Health Concerns Section Related Observation LastModified by Organization Detai ls LastModified Time None Recorded Concern Status LastModified by Organization Details LastModified Time None Recorded Advance Directives Directive N: Payers Encounter Date Sequence Insurance Name Policy Number Policy Escobedo Covered Member ID Escobedo Member ID Guarantor Name 11/10/2022 1 [facility] ([facility] [id number] [facility] [id number] [address] [place] [address] 11/21/2022 1 [facility] [id number] [facility] [id number] [address] [place] [address] 12/13/2022 1 [facility] [id number] [facility] [id number] [address] [place] [address] 12/27/2022 1 [facility] [id number] [facility] [id number] [address] [place] [address] Notes Date Note Type Note Provider Name and Address Organization Details Recorded Time 11/21/2022 text/html 32-year-old fema le with recurrent severe dysmenorrhea and menorrhagia. She had endometrial ablation. She appears on ultrasound to possibly have an hematometra. Patient is failed endometrial ablation now. She has previously failed medical treatments. We talked about treatment options. We talked about the cure with definitive surgery. We agreed to move forward with robotic assisted hysterectomy with bilateral salpingectomy. Spent more than 40 minutes [id number]. We discussed the procedure in detail. We discussed her options in detail. We discussed revisiting medical and procedural treatments. Talked about the risk of the surgery in detail. We made a decision today to perform surgery. Carlton Guallpa MD [address], [place], [address], [facility] 11/21/2022 11:22:06 12/13/2022 text/html This patient is a 32-year-old female presents for preoperative care. She has severe menorrhagia and dysmenorrhea. Agreed to perform total arthroscopic hysterectomy and bilateral salpingectomy. The patient understands the procedure. The procedure was described to the patient in great detail. the patient also understands the risks. The risks were also explained in detail. She understands that injuries May occur during surgery. She understands these injuries can result in hospitalization, more surgery, and severe illness. She understands there is risk of hemorrhage and infection. Carlton Guallpa MD [address], [place], [address], [facility] 12/14/2022 00:14:31 12/27/2022 text/html Patient is a 32-year-old female presents for postop follow-up. She is postop 1 week for Mom a hysterectomy and salpingectomy. She is recovering normally. She was doing very very well. Her incisions are clean dry and intact. She has no complaints. She will follow-up as needed. Carlton Guallpa MD [address], [place], [address], [facility] 12/27/2022 16:06:06 OBGyn Episode Ob Episode Information Episode Created Date Number of Fetuses Patient Bloodtype Patient rh Status Prepregnancy Weight lbs Domestic Partner Domestic Partner Phone Father Name Manager Of Sales Status 04/08/20 20 1 CLOSED Fetus Data First Name Last Name Admitted to NICU Weight (g) Sex Living Outcome Pediatric Complications Fetus ID Race Codes Race Delivery Type 3486.76 1704 M Full Term 2677 Vaginal Delivery David Calculation Initial David Date Initial Exam Date Initial Exam Provider Initial Ultrasound Date Last Menstrual Period Date Ultra Sound Weeks Gestation 0 Eighteen To Twenty Week David Update Ultra Sound Date Fundal Height At Umbil Quickening Date Ultra Sound Latest Weeks Gestation Final David Confirmed By Final David Confirmed Date Final David Date Ultra Sound Latest Days Gestation 0 0 Menstrual History Last Menstrual Date Menses Monthly On Bcp Conception Prior Menses Frequency Hcg Plus Date Menarche Onset Age Delivery Information Delivery Date Delivery Type Labor Anesthesia Weeks Gestation Incision Type Labor Labor Length Hrs Delivered By Post Complications Tubal Sterilization Discharge Date Comments 9 38 GHTN Discharge Information Feeding Method Contraceptive Method Maternal HG B and HCT Levels Ob Episode Information Episode Created Date Number of Fetuses Patient Bloodtype Patient rh Status Prepregnancy Weight lbs Domestic Partner Domestic Partner Phone Father Name Manager Of Sales Status 04/08/20 20 1 CLOSED Fetus Data First Name Last Name Admitted to NICU Weight (g) Sex Living Outcome Pediatric Complications Fetus ID Race Codes Race Delivery Type 4110.45 0704 M Full Term 2678 Vaginal Delivery David Calculation Initial David Date Initial Exam Date Initial Exam Provider Initial Ultrasound Date Last Menstrual Period Date Ultra Sound Weeks Gestation 0 Eighteen To Twenty Week David Update Ultra Sound Date Fundal Height At Umbil Quickening Date Ultra Sound Latest Weeks Gestation Final David Confirmed By Final David Confirmed Date Final David Date Ultra Sound Latest Days Gestation 0 0 Menstrual History Last Menstrual Date Menses Monthly On Bcp Conception Prior Menses Frequency Hcg Plus Date Menarche Onset Age Delivery Information Delivery Date Delivery Type Labor Anesthesia Weeks Gestation Incision Type Labor Labor Length Hrs Delivered By Post Complications Tubal Sterilization Discharge Date Comments 3 39.2 Discharge Information Feeding Method Contraceptive Method Maternal HG B and HCT Levels Ob Episode Information Episode Created Date Number of Fetuses Patient Bloodtype Patient rh Status Prepregnancy Weight lbs Domestic Partner Domestic Partner Phone Father Name Manager Of Sales Status 04/08/20 20 1 CLOSED Fetus Data First Name Last Name Admitted to NICU Weight (g) Sex Living Outcome Pediatric Complications Fetus ID Race Codes Race Delivery Type 3345.24 1 F Full Term 2679 Vaginal Delivery David Calculation Initial David Date Initial Exam Date Initial Exam Provider Initial Ultrasound Date Last Menstrual Period Date Ultra Sound Weeks Gestation 0 Eighteen To Twenty Week David Update Ultra Sound Date Fundal Height At Umbil Quickening Date Ultra Sound Latest Weeks Gestation Final David Confirmed By Final David Confirmed Date Final David Date Ultra Sound Latest Days Gestation 0 0 Menstrual History Last Menstrual Date Menses Monthly On Bcp Conception Prior Menses Frequency Hcg Plus Date Menarche Onset Age Delivery Information Delivery Date Delivery Type Labor Anesthesia Weeks Gestation Incision Type Labor Labor Length Hrs Delivered By Post Complications Tubal Sterilization Discharge Date Comments 0 40 Discharge Information Feeding Method Contraceptive Method Maternal HG B and HCT Levels Ob Episode Information Episode Created Date Number of Fetuses Patient Bloodtype Patient rh Status Prepregnancy Weight lbs Domestic Partner Domestic Partner Phone Father Name Manager Of Sales Status 06/07/20 20 1 CLOSED Fetus Data First Name Last Name Admitted to NICU Weight (g) Sex Living Outcome Pediatric Complications Fetus ID Race Codes Race Delivery Type , Spontane ous [id number] David Calculation Initial David Date Initial Exam Date Initial Exam Provider Initial Ultrasound Date Last Menstrual Period Date Ultra Sound Weeks Gestation 0 Eighteen To Twenty Week David Update Ultra Sound Date Fundal Height At Umbil Quickening Date Ultra Sound Latest Weeks Gestation Final David Confirmed By Final David Confirmed Date Final David Date Ultra Sound Latest Days Gestation 0 0 Menstrual History Last Menstrual Date Menses Monthly On Bcp Conception Prior Menses Frequency Hcg Plus Date Menarche Onset Age Delivery Information Delivery Date Delivery Type Labor Anesthesia Weeks Gestation Incision Type Labor Labor Length Hrs Delivered By Post Complications Tubal Sterilization Discharge Date Comments 7 D&C/ 05/2007 miscarria ge Discharge Information Feeding Method Contraceptive Method Maternal HG B and HCT Levels
--- OUTSIDE RECORDS SUMMARY | 2024-11-03 08:55 | XMS_ITS | Data Portability ---
Author Organization [facility] [place] Address [address] [facility] [place] [address] Care Team Providers Care Director Learning And Development Name Role Phone SHANA DUBOSE Litigation Manager Assessment No assessment recorded. Plan of Treatment Reminders Order Date Submit Date Provider Last Modified By Organization Details Last Modified Time Details Appointments None recorded. Lab HIV 1+2 AB + HIV 1 p24 Ag, qualitativ e immunoassa y, serum 2015 016 DONA ARIANE, Anna m[address], [address], [place], [address], 6 06:21:08 RPR (rapid plasma reagin), serum 2015 016 DONA ARIANE, Anna [address], [address], [place], [address], 6 06:21:08 CT + NG DNA, PCR, unspecifie d specimen 2015 016 [facility] [address], [place], [address], 6 11:09:32 hepatitis panel (A+B+C), acute, serum 2015 016 DONA THAKKAR, Anna Choi, [address], [place], [address], 6 06:21:07 CBC 2015 016 DONA THAKKAR, Anna Choi, [address], [place], [address], 6 06:21:06 lipid panel, serum 2015 016 DONA THAKKAR, Anna Choi, [address], [place], [address], 6 06:21:07 CMP, serum or plasma 2015 016 DONA PASCALRP, Anna Choi, [address], [place], [address], 6 06:21:06 urinalysis , dipstick 2015 016 DONA In-Office Order, Internal Use Only DO Not Attach Compendium DO Not Attach Compendium, Do Not Delete/merge, [id number] 6 08:44:38 TSH + free T4, serum 2015 016 DONA THAKKAR, Anna Choi, [address], [place], [address], 6 06:21:05 TSH + free T4, serum 2016 017 DONA THAKKAR, Anna Choi, [address], [place], [address], 7 06:13:09 TSH, ultra-sens itive, serum 2017 018 DONA [facility], Anna Choi, [address], [place], [address], 8 04:26:53 Referral None recorded. Procedures None recorded. Surgeries None recorded. Imaging US, thyroid [address] ([facility]), [address] [facility] [place], [address], 7 14:24:40 Medication Orders albuterol sulfate HFA 90 mcg/actuat ion aerosol inhaler 2015 016 [id number], [address] [facility], [place], [place], [id number], 8 10:17:56 levothyrox ine 88 mcg tablet 2015 016 [id number], [address] [facility], [place], [place], [id number], 8 11:00:57 albuterol sulfate HFA 90 mcg/actuat ion aerosol inhaler 2016 017 [facility][id number], [address] [facility], [place], [place], [id number], 8 10:17:56 levothyrox ine 75 mcg tablet 2017 018 [facility][id number], [address] [facility], [place], [place], [id number], 8 10:22:44 Patient TargetsNo targets recorded. Patient Instructions Encounter Date Encounter Id Patient Instructions Last Modified By Organization Details Last Modified Time 04/13/2016 [id number] pulmonary function test* mringor Not available 04/14/2016 13:56:21 Patient seen on a day when Dona was down - patient to RTC in 2 weeks for lab f/u and to ensure all information is correctly entered into [place] Patient will sign LLUVIA for last two office notes and recent labs from Dr. Kiersten church Not available 04/13/2016 13:31:51 04/27/2016 [id number] pulmonary function test* DONA Not available 05/12/2016 15:11:35 03/13/2017 [id number] Scheduled an appointment for [facility] for 2 weeks from [facility] Not available 03/13/2017 14:21:35 06/03/2018 [id number] get labs done today f/u on result [email or web address] Not available 06/03/2018 10:26:59 Reason for Referral None Reported. Results Created Date Observation Date Name Description Value Unit Range Abnormal Flag Note LastModifiedBy Organization Detail LastModifiedTime 04/13/20 16 04/14/2016 urina lysis , dipst ick Leukocytes Negati ve Not Available In-Office Order Internal Use Only DO Not Attach Compendium DO Not Attach Compendium, Do Not Delete/merge, 04/13/2016 13:32:50 04/13/20 16 04/14/2016 urina lysis , dipst ick Nitrite negati ve Not Available In-Office Order Internal Use Only DO Not Attach Compendium DO Not Attach Compendium, Do Not Delete/merge, 04/13/2016 13:32:50 04/13/20 16 04/14/2016 urina lysis , dipst ick Urobilinogen .2 Not Available In-Of fice Order Internal Use Only DO Not Attach Compendium DO Not Attach Compendium, Do Not Delete/merge, 04/13/2016 13:32:50 04/13/20 16 04/14/2016 urina lysis , dipst ick Protein Negati ve Not Available In-Office Order Internal Use Only DO Not Attach Compendium DO Not Attach Compendium, Do Not Delete/merge, 04/13/2016 13:32:50 04/13/20 16 04/14/2016 urina lysis , dipst ick pH 6.0 Not Available In-Office Order Internal Use Only DO Not Attach Compendium DO Not Attach Compendium, Do Not Delete/merge, 04/13/2016 13:32:50 04/13/20 16 04/14/2016 urina lysis , dipst ick Blood Negati ve Not Available In-Office Order Internal Use Only DO Not Attach Compendium DO Not Attach Compendium, Do Not Delete/merge, 04/13/2016 13:32:50 04/13/20 16 04/14/2016 urina lysis , dipst ick Specific [place] 1.000 Not Available In-Off ice Order Internal Use Only DO Not Attach Compendium DO Not Attach Compendium, Do Not Delete/merge, 04/13/2016 13:32:50 04/13/20 16 04/14/2016 urina lysis , dipst ick Ketone Negati ve Not Available In-Office Order Internal Use Only DO Not Attach Compendium DO Not Attach Compendium, Do Not Delete/merge, [id number] 04/13/2016 13:32:50 04/13/20 16 04/14/2016 urina lysis , dipst ick Bilirubin Negati ve Not Available In-Office Order Internal Use Only DO Not Attach Compendium DO Not Attach Compendium, Do Not Delete/merge, [id number] 04/13/2016 13:32:50 04/13/20 16 04/14/2016 urina lysis , dipst ick Glucose Negati ve Not Available In-Office Order Internal Use Only DO Not Attach Compendium DO Not Attach Compendium, Do Not Delete/merge, [id number] 04/13/2016 13:32:50 04/13/20 16 04/14/2016 urina lysis , dipst ick Appearance Clear Not Available In-Offi ce Order Internal Use Only DO Not Attach Compendium DO Not Attach Compendium, Do Not Delete/merge, [id number] 04/13/2016 13:32:50 04/13/20 16 04/14/2016 urina lysis , dipst ick Color Yellow Not Available In-Office Order Internal Use Only DO Not Attach Compendium DO Not Attach Compendium, Do Not Delete/merge, [id number] 04/13/2016 13:32:50 04/13/20 16 04/14/2016 CT + NG DNA, PCR, unspe cifie d speci men please note: COMMEN T ACCEP TABLE SPECI MENS FOR THIS TEST ARE MALE URETH RAL SWAB, ENDOC ERVIC AL SWAB AND LIQUI D BASED PAP SPECI MENS, VAGIN AL SWABS IN APTIM A TRANS PORTS AND FIRST VOID URINE . SEE POONAM VAN OF SERVI CHER FOR TEST NUMBE R FOR RECTA L AND PHARY NGEAL SPECI MENS. Not Available [facility] ([facility]) [address] [facility], [place], [address], 04/17/2016 11:09:32 04/13/20 16 04/17/2016 CT + NG DNA, PCR, unspe cifie d speci men chlamydia trachomatis, JESSI NEGATI VE negati ve Not Available [facility] ([facility]) [address] [facility] [address], [place], [address], 04/17/2016 11:09:32 04/13/20 16 04/17/2016 CT + NG DNA, PCR, unspe cifie d speci men neisseria gonorrhoeae, JESSI NEGATI VE negati ve Not Available [facility] ([facility]) [address] [place], [address], 04/17/2016 11:09:32 04/18/20 16 04/19/2016 TSH + free T4, serum TSH 0.916 uIU/m L 0.450- 4.500 Not Available [facility] ([facility]) [address] [place], [address], 04/20/2016 06:21:05 04/18/20 16 04/19/2016 TSH + free T4, serum T4,free(dire ct) 1.30 NG/dL 0.82-1 .77 Not Available [facility] ([facility]) [address] [place], [address], 04/20/2016 06:21:05 04/18/20 16 04/19/2016 CBC WBC 6.1 x10e3 /uL 3.4-10 .8 Not Available [facility] ([facility]) [address] [place], [address], 04/20/2016 06:21:06 04/18/20 16 04/19/2016 CBC RBC 4.61 x10e6 /uL 3.77-5 .28 Not Available [facility] ([facility]) [address] [place], [address], 04/20/2016 06:21:06 04/18/20 16 04/19/2016 CBC hemoglobin 13.1 g/dL 11.1-1 5.9 Not Available [facility] ([facility]) [address] [place], [address], 04/20/2016 06:21:06 04/18/20 16 04/19/2016 CBC hematocrit 39.2 % 34.0-4 6.6 Not Available [facility] ([facility]) [address] [facility] [place], [address], 04/20/2016 06:21:06 04/18/20 16 04/19/2016 CBC MCV 85 fL 79-97 Not Available [facility] ([facility]) [address] [facility] [place], [address], 04/20/2016 06:21:06 04/18/20 16 04/19/2016 CBC MCH 28.4 pg 26.6-3 3.0 Not Available [facility] ([facility]) [address] [facility] [place], [address], 04/20/2016 06:21:06 04/18/20 16 04/19/2016 CBC MCHC 33.4 g/dL 31.5-3 5.7 Not Available [facility] ([facility]) [address] [facility] [address] [facility], [place], [address], 04/20/2016 06:21:06 04/18/20 16 04/19/2016 CBC RDW 13.1 % 12.3-1 5.4 Not Available [facility] ([facility]) [address] [place], [address], 04/20/2016 06:21:06 04/18/20 16 04/19/2016 CBC platelets 222 x10e3 /uL 150-37 9 Not Available [facility] ([facility]) [address] [place], [address], 04/20/2016 06:21:06 04/18/20 16 04/19/2016 CBC neutrophils 56 % Not Avai lable [facility] ([facility]) [address] [place], [address], 04/20/2016 06:21:06 04/18/20 16 04/19/2016 CBC lymphs 38 % Not Available [facility] ([facility]) [address] [place], [address], 04/20/2016 06:21:06 04/18/20 16 04/19/2016 CBC monocytes 5 % Not Availa ble [facility] ([facility]) [address] [place], [address], 04/20/2016 06:21:06 04/18/20 16 04/19/2016 CBC eos 1 % Not Available [facility] ([facility]) [address] [place], [address], 04/20/2016 06:21:06 04/18/20 16 04/19/2016 CBC basos 0 % Not Available [facility] (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) [address] [place], [address], 04/20/2016 06:21:06 04/18/20 16 04/19/2016 CBC neutrophils (absolute) 3.4 x10e3 /uL 1.4-7. 0 Not Available [facility] ([facility]) [address] [place], [address], 04/20/2016 06:21:06 04/18/20 16 04/19/2016 CBC lymphs (absolute) 2.3 x10e3 /uL 0.7-3. 1 Not Available [facility] ([facility]) [address] [place], [address], 04/20/2016 06:21:06 04/18/20 16 04/19/2016 CBC monocytes(ab solute) 0.3 x10e3 /uL 0.1-0. 9 Not Available [facility] ([facility]) [address] [place], [address], 04/20/2016 06:21:06 04/18/20 16 04/19/2016 CBC eos (absolute) 0.1 x10e3 /uL 0.0-0. 4 Not Available [facility] ([facility]) [address] [facility] [place], [address], 04/20/2016 06:21:06 04/18/20 16 04/19/2016 CBC baso (absolute) 0.0 x10e3 /uL 0.0-0. 2 Not Available [facility] ([facility]) [address] [facility] [address], [place], [address], 04/20/2016 06:21:06 04/18/2004/19/2016 CBC immature granulocytes 0 % Not Available [facility] ([facility]) [address], [place], [address], 04/20/2016 06:21:06 04/18/20 16 04/19/2016 CBC immature grans (abs) 0.0 x10e3 /uL 0.0-0. 1 Not Available [facility] ([facility]) [address] [facility] [address], [place], [address], 04/20/2016 06:21:06 04/18/2004/19/2016 CBC NRBC BUSINESS EXCELLENCE LEADER Not Available [facility] ([facility]) [address], [place], [address], 04/20/2016 06:21:06 04/18/2004/19/2016 CBC hematology comments: BUSINESS EXCELLENCE LEADER Not Available [facility] ([facility]) [address], [place], [address], 04/20/2016 06:21:06 04/18/2004/19/2016 CMP, serum or plasm a glucose, serum 83 mg/dL 65-99 Not Available [facility] ([facility]) [address] [place], [address], 04/20/2016 06:21:06 04/18/2004/19/2016 CMP, serum or plasm a BUN 10 mg/dL 6-20 Not Available [facility] ([facility]) [address] [facility] [place], [address], 04/20/2016 06:21:06 04/18/20 16 04/19/2016 CMP, serum or plasm a creatinine, serum 0.74 mg/dL 0.57-1 .00 Not Available [facility] ([facility]) [address] [facility] [place], [address], 04/20/2016 06:21:06 04/18/20 16 04/19/2016 CMP, serum or plasm a eGFR if nonafricn AM 113 mL/mi n/1.7 3 >59 Not Available [facility] ([facility]) [address] [facility] [place], [address], 04/20/2016 06:21:06 04/18/20 16 04/19/2016 CMP, serum or plasm a eGFR if africn AM 130 mL/mi n/1.7 3 >59 Not Available [facility] ([facility]) [address] [place], [address], 04/20/2016 06:21:06 04/18/20 16 04/19/2016 CMP, serum or plasm a BUN/creatini ne ratio 14 8-20 Not Available [facility] ([facility]) [address] [facility] [place], [address], 04/20/2016 06:21:06 04/18/20 16 04/19/2016 CMP, serum or plasm a sodium, serum 142 mmol/ L 134-14 4 Not Available [facility] ([facility]) [address] [facility] [place], [address], 04/20/2016 06:21:06 04/18/20 16 04/19/2016 CMP, serum or plasm a potassium, serum 4.5 mmol/ L 3.5-5. 2 Not Available [facility] ([facility]) [address] [facility] [place], [address], 04/20/2016 06:21:06 04/18/20 16 04/19/2016 CMP, serum or plasm a chloride, serum 103 mmol/ L 97-108 Not Available [facility] ([facility]) [address] [facility] [place], [address], 04/20/2016 06:21:06 04/18/20 16 04/19/2016 CMP, serum or plasm a carbon dioxide, total TNP mmol/ L TEST NOT PERFO RMED. DETER IORAT ION OCCUR RED DURIN G SPECI MEN HANDL ING. Not Available [facility] ([facility]) [address] [facility] [place], [address], 04/20/2016 06:21:06 04/18/20 16 04/19/2016 CMP, serum or plasm a calcium, serum 9.1 mg/dL 8.7-10 .2 Not Available [facility] ([facility]) [address] [place], [address], 04/20/2016 06:21:06 04/18/20 16 04/19/2016 CMP, serum or plasm a protein, total, serum 7.3 g/dL 6.0-8. 5 Not Available [facility] ([facility]) [address] [place], [address], 04/20/2016 06:21:06 04/18/20 16 04/19/2016 CMP, serum or plasm a albumin, serum 4.7 g/dL 3.5-5. 5 Not Available [facility] ([facility]) [address] [place], [address], 04/20/2016 06:21:06 04/18/20 16 04/19/2016 CMP, serum or plasm a globulin, total 2.6 g/dL 1.5-4. 5 Not Available [facility] ([facility]) [address] [place], [address], 04/20/2016 06:21:06 04/18/20 16 04/19/2016 CMP, serum or plasm a A/G ratio 1.8 1.1-2. 5 Not Available [facility] ([facility]) [address] [facility] [place], [address], 04/20/2016 06:21:06 04/18/20 16 04/19/2016 CMP, serum or plasm a bilirubin, total 0.5 mg/dL 0.0-1. 2 Not Available [facility] ([facility]) [address] [facility] [place], [address], 04/20/2016 06:21:06 04/18/20 16 04/19/2016 CMP, serum or plasm a alkaline phosphatase, S 69 IU/L 39-117 Not Available [facility] ([facility]) [address] [facility] [place], [address], 04/20/2016 06:21:06 04/18/20 16 04/19/2016 CMP, serum or plasm a AST (SGOT) 14 IU/L 0-40 Not Available [facility] ([facility]) [address] [facility] [place], [address], 04/20/2016 06:21:06 04/18/20 16 04/19/2016 CMP, serum or plasm a ALT (SGPT) 11 IU/L 0-32 Not Available [facility] ([facility]) [address] [facility] [place], [address], 04/20/2016 06:21:06 04/18/20 16 04/19/2016 lipid panel , serum cholesterol, total 171 mg/dL 100-19 9 Not Available [facility] ([facility]) [address] [facility] [place], [address], 04/20/2016 06:21:07 04/18/20 16 04/19/2016 lipid panel , serum triglyceride s 84 mg/dL 0-149 Not Available [facility] ([facility]) [address] [facility] [place], [address], 04/20/2016 06:21:07 04/18/20 16 04/19/2016 lipid panel , serum HDL cholesterol 78 mg/dL >39 ACCOR DING TO ATP-I II GUIDE LINES , HDL-C >59 MG/DL IS CONSI DERED A NEGAT GUDELIA RISK FACTO R FOR CHD. Not Available [facility] ([facility]) [address], [place], [address], 04/20/2016 06:21:07 04/18/20 16 04/19/2016 lipid panel , serum VLDL cholesterol mauro 17 mg/dL 5-40 Not Available [facility] ([facility]) [address] [place], [address], 04/20/2016 06:21:07 04/18/20 16 04/19/2016 lipid panel , serum LDL cholesterol calc 76 mg/dL 0-99 Not Available [facility] ([facility]) [address], [place], [address], 04/20/2016 06:21:07 04/18/20 16 04/19/2016 lipid panel , serum comment: BUSINESS EXCELLENCE LEADER Not Available [facility] ([facility]) [address], [place], [address], 04/20/2016 06:21:07 04/18/20 16 04/19/2016 lipid panel , serum T. chol/HDL ratio 2.2 ratio _unit s 0.0-4. 4 T. CHOL/ HDL RATIO MEN WOMEN 1/2 AVG.R ISK 3.4 3.3 AVG.R ISK 5.0 4.4 2X AVG.R ISK 9.6 7.1 3X AVG.R ISK 23.4 11.0 Not Available [facility] ([facility]) [address], [place], [address], 04/20/2016 06:21:07 04/18/20 16 04/19/2016 hepat itis panel (A+B+ C), acute , serum hep A Ab, IgM NEGATI VE negati ve Not Available [facility] ([facility]) [address] [place], [address], 04/20/2016 06:21:07 04/18/20 16 04/19/2016 hepat itis panel (A+B+ C), acute , serum HBsAg screen NEGATI VE negati ve Not Available [facility] ([facility]) [address] [place], [address], 04/20/2016 06:21:07 04/18/20 16 04/19/2016 hepat itis panel (A+B+ C), acute , serum hep B core Ab, IgM NEGATI VE negati ve Not Available [facility] ([facility]) [address] [place], [address], 04/20/2016 06:21:07 04/18/20 16 04/19/2016 hepat itis panel (A+B+ C), acute , serum hep C virus Ab 0.1 S/co_ ratio 0.0-0. 9 NEGAT GUDELIA: < 0.8 INDET ERMIN ATE: 0.8 - 0.9 POSIT GUDELIA: > 0.9 THE CDC RECOM MENDS THAT A POSIT GUDELIA HCV ANTIB CHERIE RESUL T BE FOLLO WED UP WITH A HCV NUCLE IC ACID AMPLI FICAT ION TEST (5507 13). Not Available [facility] ([facility]) [address] [place], [address], 04/20/2016 06:21:07 04/18/20 16 04/20/2016 RPR (rapi d plasm a reagi n), serum RPR NON REACTI VE non reacti ve Not Available [facility] ([facility]) [address] [place], [address], 04/20/2016 06:21:08 04/18/20 16 04/19/2016 HIV 1+2 AB + HIV 1 p24 Ag, quali tativ e immun oassa y, serum HIV screen 4TH generation wrfx NON REACTI VE non reacti ve Not Available [facility] ([facility]) [address] [place], [address], 04/20/2016 06:21:08 03/13/20 17 03/14/2017 TSH + free T4, serum TSH 0.175 uIU/m L 0.450- 4.500 below low normal Not Available [facility] ([facility]) [address] [place], [address], 03/14/2017 06:13:09 03/13/20 17 03/14/2017 TSH + free T4, serum T4,free(dire ct) 1.51 NG/dL 0.82-1 .77 Not Available [facility] ([facility]) [address] [place], [address], 03/14/2017 06:13:09 06/03/20 18 06/04/2018 TSH, ultra -sens itive , serum TSH 1.320 uIU/m L 0.450- 4.500 Not Available [facility] ([facility]) [address] [place], [address], 06/04/2018 10:16:27 05/12/20 16 05/05/2016 pulmo nary funct ion test* No observ ation record ed. [facility] (Imaging) [address] [place], [address], 05/17/2016 17:00:29 01/09/20 19 US, obste tric, limit ed No observ ation record ed. marli Cox [address], [place], [address], 01/10/2019 21:36:00 Result Notes None recorded. Problems Name Problem SNOMED Code Status Onset Date Resolution Date Notes Provider Name and Address Organization Details Recorded Time Dyspnea 620502265 Active Gale Albert PA-C Attn: Accounting ,[address] [facility], [place], [address] , [place] - [facility] 6 12:55:21 Hypothyroi dism 36707260 Active Glae Albert PA-C Attn: Accounting ,[address] [facility], [place], [address] , [facility] 6 12:55:21 Overweight 302215485 Active 2016 Gale Albert PA-C Attn: Accounting ,[address] [facility], [place], [address] , [facility] 7 14:07:25 History of tobacco use 9652322729357 Active 2016 Gale Albert PA-C Attn: Accounting ,[address] [facility], [place], [address] , [facility] 7 14:21:16 Problem Notes None recorded. Procedures Surgical History Date Name Laterality Status Provider Name and Address Organization Details Recorded Time 10/08/2011 Other completed Gale Albert PA-C Attn: Accounting,[address] [place], [address], [facility] 04/27/2016 12:33:15 Imaging Results Imaging Date Name Status LastModified by Organiz ation Details LastModified Time 05/05/2016 pulmonary function test* completed [address] (Imaging) [address] [place], [address], 05/17/2016 17:00:29 01/08/2019 US, obstetric, limited completed marli Cox [address] [facility] [address], [address], 01/10/2019 21:36:00 Procedure Notes None recorded. Medical Equipment None Reported. Allergies No known drug allergies Medications Name Sig Start Date Stop Date Status Note LastModified by Organization Details LastModified Time penicillin V potassium 250 mg tablet 06/03 completed Not Available Not Available Not Available doxycycline hyclate 100 mg capsule 06/03 completed Not Available Not Available Not Available sulfamethoxaz ole 800 mg-trimethopr im 160 mg tablet 06/03 completed Not Available Not Available Not Available levothyroxine 75 mcg tablet Take 1 tablet every day by oral route. 2017 active Not Available Not Available Not Avai lable levothyroxine 88 mcg tablet TAKE 1 TABLET BY MOUTH EVERY DAY 01/04 completed Not Available Not Available Not Available lorazepam 0.5 mg tablet active Not Available Not Available No t Available meclizine 25 mg tablet 06/03 completed Not Available Not Available Not Available hydrocodone 7.5 mg-acetaminop hen 325 mg tablet 06/03 completed Not Available Not Available Not Available ondansetron 4 mg disintegratin g tablet 06/03 completed Not Available Not Available Not Available Ventolin HFA 90 mcg/actuation aerosol inhaler INHALE 2 PUFFS BY MOUTH EVERY 4 HOURS 06/03 completed Not Available Not Available Not Available Wal-phed 30 mg tablet 06/03 completed Not Available Not Available Not Available Vitals Date Recorded Body height Provider Name an d Address Organization Details Last Updated DateTime 06/03/2018 162.56 cm Winston [place] [facility] 06/03/2018 10 :17:34 Date Recorded Body mass index (BMI) Body weight Provider Name and Address Organization Details Last Updated DateTime 06/03/2018 29.4 kg/m2 16330.1 g Winston [place] - [facility] 2017 10:17:38 Date Recorded Oxygen saturation Oxygen saturation in Arterial blood by Pulse oximetry Provider Name and Address Organization Details Last Updated DateTime 06/03/2018 99 % 99 % Winston [place] [facility] 018 10:17:40 Date Recorded Heart rate Provider Name an d Address Organization Details Last Updated DateTime 06/03/2018 76 /min Winston [place] - [facility] 06/03/2018 10 :17:43 Date Recorded Respiratory rate Provider Name a nd Address Organization Details Last Updated DateTime 06/03/2018 12 /min Winston [place] [facility] 06/03/2018 10:17:45 Date Recorded Body temperature Provider Name a nd Address Organization Details Last Updated DateTime 06/03/2018 98.2 [degF] Winston [place] [facility] 06/03/2018 10:17:49 Date Recorded Body height Provider Name an d Address Organization Details Last Updated DateTime 04/27/2016 162.56 cm [place] [facility] 04/27/2016 12 :09:52 Date Recorded Body temperature Heart rate Respiratory rate Body mass index (BMI) Body weight Systolic blood pressure Diastolic blood pressure Provider Name and Address Organization Details Last Updated DateTime 6 97.8 [degF] 68 /min 12 /min 28.8 kg/m2 79452.5 1816 g 124 mm[Hg] 70 mm[Hg] Winston Braswell [facility] 6 12:14:38 Date Recorded Body height Provider Name an d Address Organization Details Last Updated DateTime 03/13/2017 162.56 cm Gale Albert PA-C Attn: Accounting[address] [place], [address], [facility] 03/13/2017 14:04:54 Date Recorded Body weight Body mass index (BMI) Provider Name and Address Organization Details Last Updated DateTime 03/13/2017 95332.74 g 28.3 kg/m2 Gale Albert PA-C Attn: Accounting[address] [place], [address], [facility] 03/13/2017 14:05:11 Date Recorded Heart rate Provider Name an d Address Organization Details Last Updated DateTime 03/13/2017 76 /min Gale Albert PA-C Attn: Accounting[address] [place], [address], [facility] 03/13/2017 14:05:21 Date Recorded Respiratory rate Provider Name a nd Address Organization Details Last Updated DateTime 03/13/2017 12 /min Gale Albert PA-C Attn: Accounting[address] [place], [address], [place] [facility] 03/13/2017 14:05:23 Date Recorded Body temperature Provider Name a nd Address Organization Details Last Updated DateTime 03/13/2017 98.2 [degF] Gale Albert PA-C Attn: Accounting[address] [place], [address], [facility] 03/13/2017 14:05:28 Date Recorded Systolic blood pressure Diastolic blood pressure Provider Name and Address Organization Details Last Updated DateTime 06/03/2018 124 mm[Hg] 70 mm[Hg] Winston Braswell [facility] 2017 10:17:28 Date Recorded Systolic blood pressure Diastolic blood pressure Provider Name and Address Organization Details Last Updated DateTime 03/13/2017 120 mm[Hg] 78 mm[Hg] Gale Albert PA-C Attn: Accounting[address] , [place], [address], [facility] 03/13/2017 14:05:06 Social History Question Answer Notes LastModified by Organizat ion Details LastModified Time Tobacco Smoking Status Never Smoker Winston 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 No Information not available 04/27/2016 What Is Your Level Of Alcohol Consumption? None Information not available 04/27/2016 What Is Your Level Of Caffeine Consumption? Occasional Information not available 04/27/2016 How Much Tobacco Do You Chew? None Information not available 04/27/2016 Are You Currently Employed? No Information not available 04/27/2016 What Type Of Diet Are You Following? REGULAR Information not available 04/27/2016 Which Illicit Or Recreational Drugs Have You Used? 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 No Information not available 04/27/2016 Hard Of Hearing Or Deaf In One Or Both Ears? No Information not available 04/27/2016 Legally Blind In One Or Both Eyes? No Information not available 04/27/2016 Live Alone Or With Others? With Others And Two Children Information not available 04/27/2016 Marital Status Informatio n not available 04/27/2016 What Was The Date Of Your Most Recent Tobacco Screening? 06/03/2018 Information not available 05/01/2019 How Many Children Do You Have? 2 Information not available 04/13/2016 Performs Monthly Self-breast Exam? No Information not available 04/27/2016 Do You Use Protection During Sex? Usually Condoms When Preventing Information not available 04/27/2016 Seat Belts Used Routinely Yes Information not available 04/27/2016 Are You Sexually Active? Yes Information not available 04/13/2016 Smoke Alarm In Home Yes Information not available 04/27/2016 How Much Tobacco Do You Smoke? No Information not available 04/27/2016 General Stress Level Medium Information not available 04/27/2016 Do You Use Sunscreen Routinely? Yes Information not available 04/27/2016 Sex: Unknown Functional Status Question Answer Note LastModified by Organization D etails LastModified Time What is your exercise level? Heavy Information not available 04/27/2016 Mental Status None recorded. Family History Relationship Description Onset Age of this Age Resolved Age Notes LastModified by Organization Details LastModified Time Mother Diabetes mellitus eewig Not available 2015 12:33:52 Mother Hypertensive disorder eewig Not available 2015 12:33:52 Mother Disorder of thyroid gland eewig Not available 2015 12:33:52 Sister Malignant tumor of cervix 31 eewig Not available 2015 12:33:52 Medical History Condition Response Coronary Artery Disease N Other N High Blood Pressure N Atrial Fibrillation N Thyroid Problems Y Kidney or Bladder Problems N GI Problems N Depression N COPD N Blood Clots N Skin Problems N Anemia N Heart Attack (ME) N Anxiety Disorder N Diabetes N Muscle, Joint, or Bone Problems N Seizures/Epilepsy N Acid Reflux (GERD) N Cancer N Stroke N Asthma N Allergies N High Cholesterol N Hepatitis N Liver Disease N Headaches N Osteoporosis N Heart Failure N Gynecological History Statement/Question Response Flow Heavy Date of LMP 05/31/2018 On BCP's at Conception? N Menses Monthly Y Duration of Flow (days) 7 Age at Menarche 12 Current Control Method None Age at First Child 18 LMP Definite Obstetrics History GPAL:G 2 P 2 0 0 2 Type Value Full Term 2 Living 2 Total 2 Past Encounters Encounter ID Performer Location Encounter Start Date Encounter Closed Date Diagnosis/Indication Diagnosis SNOMED-CT Code Diagnosis ICD10 Code Diagnosis Note [id number] BHAVIN Talbot (Adult Med) [address] [place] [address] 04/13/2016 12:26:15 04/13/2016 13:34:13 Dyspnea 329277296 R06.00 Will check PFTs for possible asthma Patient quit smoking 6 years ago Venereal d isease screening 567024037 Z11.3 Hypothyroidism 06419220 E03.9 Currently taking levothyrox ine 88mcg - will recheck levels today She states that she has plenty of medication to get her to her f/u appointmen t in 2 weeks Adult [facility] examination 741952340 Z00.00 25YO female here to establish care. Only reason she is switching is because Dr. Burch does not accept her insurance. [id number] BHAVIN Talbot (Adult Med) [address] [place] [address] 04/27/2016 11:55:42 04/27/2016 12:57:16 Hypothyroidism 36167266 E03.9 Currently taking levothyrox ine 88mcg - continue f/u in one year/PRN Dyspnea 252507122 R06.00 Will check PFTs - patient given order today Patient quit smoking 6 years ago [id number] BHAVIN Talbot (Adult Med) [address] [place] [phone] 03/13/2017 14:03:43 03/14/2017 14:24:40 Hypothyroidism 66255815 E03.9 Currently taking levothyrox ine 88mcg - will recheck levels at this timePatien t feels like she can't swallow and is worried about her thryoid - will check US - discussed that her PE was unremarkab leDependin g upon thyroid US, can also refer to ENT or GI Overweight 585041710 E66 .3 Advised 30 minutes of exercise 5 days/week Advised to not drink her calories Advised 3 balanced meals/day with plenty of fruits and vegetables Dyspnea 240462171 R06.00 controlled well with Ventolin PRN Patient quit smoking 6 years ago Adult [facility] examination 834317309 Z00.01 25YO female here for annual f/u History of tobacco use 4408623764 103 Z87.891 Quit in 2009 [id number] GATO NEVAREZ (Adult Med) [address] [place] [phone] 06/03/2018 10:10:38 06/04/2018 10:46:14 Hypothyroidism 12374007 E03.9 continue levothyrox ine 75 mcg check labs today f/u on lab Health Concerns Section Related Observation LastModified by Organization Detai ls LastModified Time None Recorded Concern Status LastModified by Organization Details LastModified Time None Recorded Advance Directives Directive N: Payers Encounter Date Sequence Insurance Name Policy Number Policy Escobedo Covered Member ID Escobedo Member ID Guarantor Name 04/13/2016 1 *SELF PAY* As jeramie Sousa 04/27/2016 1 *SELF PAY* As jeramie Sousa 04/27/2016 1 [facility] (MEDICAID HMO) Briseida Sousa [id number] Briseida Sousa 03/13/2017 1 [facility] (MEDICAID HMO) Briseida Sousa [id number] Briseida Sousa 06/03/2018 1 [facility] (MEDICAID HMO) Briseida Sousa [id number] Briseida Sousa Notes Date Note Type Note Provider Name and Address Organization Details Recorded Time 04/13/2016 text/html Here to [facility]. Patient states that she saw Dr. Burch in the past but no longer accepts her insurance. Gale Albert PA-C Attn: Accounting[address] [place], [address], [facility] 04/13/2016 13:34:03 04/27/2016 text/html Here for lab f/u Gale Albert PA-C Attn: Accounting[address] [place], [address], [facility] 04/27/2016 12:57:07 03/13/2017 text/html ThyroidReported bypatient.Quality:wor sening (?) Severity:mild Context:history of hypothyroidism Modifying Factors:medication (levothyroxine 88mcg) Exercisegets exercise Associated Symptoms:no cold intolerance; no heat intolerance; no weight loss; no weight gain; no double vision; no dry eyes; no hoarseness; no difficulty swallowing; no neck masses; no deepening of the voice; no fast heart rate; no increased blood pressure; no palpitations; no chest pain; no chest tightess or pressure; no diarrhea; no vomiting; no decreased appetite; no loose stools; no irregular menstrual periods; no excessive sweating; no joint pain; no numbness; no tingling of the hands or feet; no dry skin; no tremor; no nervousness; no anxiety; no depression; no sleep difficulties; no skin changes; no hair changes;constipation; fatigue; states that her mood fluctuates 26YO female here for annual f/u. Patient states that she is concerned that her thyroid is changing in size and would like further evaluation. States that for the last few weeks she feels like she is having issues swallowing. Gale Albert PA-C Attn: Accounting[address] [place], [address], [facility] 03/13/2017 14:23:28 06/03/2018 text/html ThyroidReported bypatient.Quality:not changing Context:no history of hypothyroidism; last tsh 03/2017 low-med adjusted Exerciseno exercise Associated Symptoms:no cold intolerance; no heat intolerance; no weight loss; no weight gain; no fast heart rate; no increased blood pressure; no palpitations; no chest pain; no constipation; no diarrhea; no loose stools; no irregular menstrual periods; no excessive sweating; no anxiety; no skin changes;fatigue;hair changes; reports feels like hair is falling out more pt here for medication refill GATO NEVAREZ Attn: Accounting[address] [place], [address], [facility] 06/03/2018 10:27:22 OBGyn Episode No OBEpisode recorded.
== END 2024-11-03 09:16 | disposition home or self-care (01) ==
PROVIDERS: Emergency Provider Nurse Practitioner Family; PCP Nurse Practitioner Family
DX: J40 Bronchitis, not specified as acute or chronic (principal); E03.9 Hypothyroidism, unspecified; E66.9 Obesity, unspecified; Z68.32 Body mass index [BMI] 32.0-32.9, adult
CPT/HCPCS: 99213; G0463

== ENCOUNTER 2024-12-13 08:53 | Emergency (ER) | payer OTHER, SELFPAY ==
--- NOTE | ~2024-12-13 | XR_ITS ---
EXAMINATION: XR chest 2V DATE: 12/13/2024 09:21 INDICATION: Chest pain. TECHNIQUE: Frontal and lateral views of the chest were obtained. COMPARISON: Chest 2 views 04/17/2009, CT abdomen and pelvis 03/31/2020 FINDINGS: There is no pneumonia, pleural effusion, or pneumothorax. The heart size is normal. IMPRESSION: 1. No acute cardiopulmonary disease. Reviewed, dictated and finalized at location A. 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
--- OUTSIDE RECORDS SUMMARY | 2024-12-13 08:55 | XMS_ITS | Encounter Summary ---
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 [place] [address] documented as of this encounter Visit Diagnoses Not on filedocumented in this encounter Care Teams Mill Tender Warm Up Relationship Specialty Start [place] [address] [address] PCP - General Nurse Practitioner Family 07/31/22 documented as of this encounter
--- OUTSIDE RECORDS SUMMARY | 2024-12-13 08:55 | XMS_ITS | Clinical Summary ---
Author Organization [facility] Address [address] [place] [address] Care Team Providers Care Shipping Hand Name Role Phone Zuleima Hawley NP Primary Care Provider + [phone] Allergies No known active allergies Medications albuterol sulfate HFA 108 (90 Base) MCG/ACT inhaler Inhale 2 puffs into the lungs every 4 (four) hours as needed. 5 Active azithromycin (ZITHROMAX) 250 MG tablet Take 1 tablet (250 mg total) by mouth daily. 5 Active phentermine (ADIPEX-P) 37.5 MG tabletIndications: Obesity (BMI 30-39.9),Encounter for weight management Take 1 tablet (37.5 mg total) by mouth every morning before breakfast. 30 tablet 2 5 Active levothyroxine (SYNTHROID) 88 MCG tabletIndications: Acquired hypothyroidism Take 1 tablet (88 mcg total) by mouth daily. 90 tablet 5 Active levothyroxine (SYNTHROID) 88 MCG tabletIndications: Acquired hypothyroidism Take 1 tablet (88 mcg total) by mouth daily. 90 tablet 4 12/03/19 25 Discontin ued(Reord er) Active Problems Problem Noted Date Diagnosed Date Dyspnea 08/08/2022 Hypothyroidism 08/08/2022 Family history of diabetes mellitus type II 10/2021 Obesity (BMI 30-39.9) 08/08/2022 Nonpurulent mastitis associated with ( HHS/HCC) 06/23/2019 Overview (10/07/2024): Mastitis associated w/ ;Recorded Elsewhere: No Location: [facility] Source: EHR Chronic: N Practice ID: [id number] Billable Time: 01:00:00 PM Non-proteinuric hypertension of (HHS/H CC) 03/22/2019 Overview (10/07/2024): Gestatnl htn without significant protein, comp childbirth;Practice ID: [id number] Hyperglycemia during ([facility]/HCC) 019 Overview (10/07/2024): Endo, nutritional and metab diseases comp preg, second tri;Practice ID: [id number] Hemorrhage affecting ([facility]/HCC) 018 Overview (10/07/2024): Other hemorrhage in early ;Recorded Elsewhere: No Location: [facility] Source: EHR Chronic: N Practice ID: [id number] Billable Time: 04:00:00 PM Missed ([facility]/HCC) 06/06/2017 Overview (10/07/2024): Missed ;Recorded Elsewhere: No Location: [facility] Source: EHR Chronic: N Practice ID: [id number] Billable Time: 09:15:00 AM History of tobacco use 03/13/2017 Overweight 03/13/2017 Encounters Date Type Department Care Team Description 11/05/2024 7:20 AM BUSINESS PERFORMANCE ADVISOR Office Visit [facility] Family & Internal [address] [address] Zuleima Hawley NP Follow Up (On phentermine) 11/05/2024 Travel 11/03/2024 Scan [employer] HEALTH INFO SRVCS Scanned, [facility] 10/07/2024 12:16 PM BUSINESS PERFORMANCE ADVISOR - 10/07/2024 11:59 PM BUSINESS PERFORMANCE ADVISOR Hospital Encounter [facility] [address] [place] [address] Zuleima Hawley NP Discharge Disposition: Home or Self Care (Routine Discharge) 10/07/2024 7:40 AM BUSINESS PERFORMANCE ADVISOR Laboratory Only [facility] Internal Medicine [address] [phone] Zuleima Hawley NP 10/07/2024 7:00 AM BUSINESS PERFORMANCE ADVISOR Office Visit [facility] Internal [address] [address] Zuleima Hawley NP Thyroid (Follow up check on my thyroid and weight) 10/07/2024 Travel 10/02/2024 MyChart Message Enc [facility] Internal [address] [phone] Zuleima Hawley NP Weight loss question from [...] Date Recorded Patient Health Questionnaire-2 Score 0 11/05/2024 Comments No Sex and Gender Information Value Date Recorded Sex Assigned at Female 08/08/2022 9:58 AM CDT Legal Sex Female 1:33 PM BUSINESS PERFORMANCE ADVISOR Gender Identity Female 08/05/2022 10:21 AM CDT Sexual Orientation Straight 08/08/2022 9: 58 AM CDT Last Filed Vital Signs Vital Sign Reading Time Taken Comments Blood Pressure 124/89 11/05/2024 7:34 AM BUSINESS PERFORMANCE ADVISOR Pulse 90 11/05/2024 7:34 AM BUSINESS PERFORMANCE ADVISOR Temperature 36.9 C (98.5 F) 11/05/2024 7:34 AM BUSINESS PERFORMANCE ADVISOR Respiratory Rate 20 11/05/2024 7:34 AM BUSINESS PERFORMANCE ADVISOR Oxygen Saturation 100% 11/05/2024 7:34 AM BUSINESS PERFORMANCE ADVISOR Inhaled Oxygen Concentration - - Weight 85 kg (187 lb 6.4 oz) 11/05/2024 7:34 AM BUSINESS PERFORMANCE ADVISOR Height 162.6 cm (5' 4 ) 11/05/2024 7:34 AM BUSINESS PERFORMANCE ADVISOR Body Mass Index 32.17 11/05/2024 7:34 AM BUSINESS PERFORMANCE ADVISOR Plan of Treatment Upcoming Encounters Date Type Department Care Team (Late st Contact Info) Description 02/02/2025 3:40 PM CDT Office Visit [facility] - [place] [address] [place] [address] [place] [address] [address] Health Maintenance Due Date Last Done Comments Annual Physical 1993 Hepatitis B Vaccines (1 of 3 - 19+ 3-dose series) 2009 COVID-19 Vaccine ( - 2023-2 5 season) 2025 Postponed from 06/08 (Patient Refused) Influenza Adult (#1) 2025 Postpon ed from 07/08/2024 (Patient Refused) DTaP, Tdap and Td Vaccines ( 2 - Td or Tdap) 02/25/2029 02/25/2019, 04/20/1992, 01/29/1992 Hepatitis C Completed 02/14/2023 PHQ-2 (Physician Motley) Completed 11/05/2024 HPV Vaccines Aged Out No longer eligi [...] VENOUS BLOOD VENIPUNCTURE Routine 10/07/2024 7:43 AM BUSINESS PERFORMANCE ADVISOR Obesity (BMI 30-39.9) Hypothyroidism, unspecified type TSH W/REFLEX Routine 10/07/2024 7:37 AM BUSINESS PERFORMANCE ADVISOR Obesity (BMI 30-39.9) Hypothyroidism, unspecified type CBC W/DIFF AUTOMATED Routine 10/07/2024 7:37 AM BUSINESS PERFORMANCE ADVISOR Obesity (BMI 30-39.9) Hypothyroidism, unspecified type COMPREHENSIVE METABOLIC PANEL Routine 10/07/2024 7:37 AM BUSINESS PERFORMANCE ADVISOR Obesity (BMI 30-39.9) Hypothyroidism, unspecified type HEPATITIS C ANTIBODY Routine 02/14/2023 7:29 AM CDT Encounter for hepatitis C screening test for low risk patient from Last 3 Months or Most Recently Relevant to Health Maintenance Results * TSH W/REFLEX (10/07/2024 7:37 AM BUSINESS PERFORMANCE ADVISOR) TSH 0.825 0.358 - 3.74 uIU/ML 10/07/2024 1:19 PM BUSINESS PERFORMANCE ADVISOR [facility] Comment: HIGH DOSES OF BIOTIN MAY INTERFERE WITH THIS TEST RESULT. CORRELATION TO CLINICAL HISTORY AND PRESENTATION RECOMMENDED. FREE T4 NOT INDICATED 10/07/2024 7:37 AM BUSINESS PERFORMANCE ADVISOR us Zuleima Hawley NP LABORATORY Final Result [facility] [address] [place] [address], [place] [phone] * (ABNORMAL) COMPREHENSIVE METABOLIC PANEL (10/07/2024 7:37 AM BUSINESS PERFORMANCE ADVISOR) GLUCOSE 83 70 - 99 MG/DL 10/07/2024 1:19 PM BUSINESS PERFORMANCE ADVISOR [facility] BUN 13 7 - 18 MG/DL 10/07/2024 1:19 PM [facility] CREATININE S/P/B 0.71 0.55 - 1.02 MG/DL 10/07/2024 1:19 PM [facility] SODIUM S/P/B 143 136 - 145 MMOL/L 10/07/2024 1:19 PM [facility] POTASSIUM S/P/B 4.6 3.5 - 5.1 MMOL/L 10/07/2024 1:19 PM [facility] CHLORIDE S/P/B 105 100 - 108 MMOL/L 10/07/2024 1:19 PM [facility] CO2 30.0 21 - 32 MMOL/L 10/07/2024 1:19 PM [facility] CALCIUM S/P/B 9.2 8.5 - 10.1 MG/DL 10/07/2024 1:19 PM [facility] BILIRUBIN TOTAL S/P/B 0.6 0.2 - 1.2 MG/DL 10/07/2024 1:19 PM [facility] TOTAL PROTEIN S/P/B 7.4 6.4 - 8.2 G/DL 10/07/2024 1:19 PM [facility] ALBUMIN S/P/B 4.1 3.4 - 5.0 G/DL 10/07/2024 1:19 PM [facility] AST 14(L) 15 - 37 U/L 10/07/2024 1:19 PM [facility] ALT 32 14 - 55 U/L 10/07/2024 1:19 PM [facility] ALKALINE PHOSPHATASE S/P/B 66 50 - 136 U/L 10/07/2024 1:19 PM [facility] ANION GAP 8.0 5 - 15 MMOL/L 10/07/2024 1:19 PM [facility] BUN CREATININE RATIO 18.3 6 - 26 10/07/2024 1:19 PM [facility] A/G RATIO 1.2 1.0 - 2.0 RATIO 10/07/2024 1:19 PM [facility] GFR ESTIMATE >90 >90 ML/MIN/1.7 3 M2 10/07/2024 1:19 PM [facility] Comment: NOTE: eGFR is not calculated for patients <18 years of age. This is an estimated GFR calculation using the new CKD EPI creatinine equation without race and so does not require a correction factor for race. This estimated GFR should not be used for calculating drug doses. 10/07/2024 7:37 AM BUSINESS PERFORMANCE ADVISOR us Zuleima Hawley NP LABORATORY Final Result [facility] [address] [place] [address], * (ABNORMAL) CBC W/DIFF AUTOMATED (10/07/2024 7:37 AM BUSINESS PERFORMANCE ADVISOR) WBC 7.17 4.4 - 11.0 x10'3/uL 10/07/2024 12:33 PM [facility] RBC 4.60 4.50 - 5.10 x10'6/uL 10/07/2024 12:33 PM [facility] HGB 13.5 12.3 - 15.3 G/DL 10/07/2024 12:33 PM [facility] HCT 39.6 35.9 - 44.6 % 10/07/2024 12:33 PM [facility] MCV 86.1 80.0 - 96.0 FL 10/07/2024 12:33 PM [facility] MCH 29.3 25.3 - 30.9 PG 10/07/2024 12:33 PM [facility] MCHC 34.1 31.0 - 34.1 G/DL 10/07/2024 12:33 PM [facility] RDW 12.3(L) 12.4 - 15.1 % 10/07/2024 12:33 PM [facility] PLT 246 151 - 353 x10'3/uL 10/07/2024 12:33 PM [facility] MPV 9.3(L) 9.6 - 12.0 FL 10/07/2024 12:33 PM [facility] RBC MORPHOLOGY NORMAL 10/07/2024 12:33 PM [facility] PLT MORPH. NORMAL 10/07/2024 12:33 PM [facility] WBC MORPHOLOGY NORMAL 10/07/2024 12:33 PM [facility] LYMPHOCYTES % 28.9 15.8 - 45.0 % 10/07/2024 12:33 PM [facility] NEUTROPHILS % 62.5 42.1 - 71.9 % 10/07/2024 12:33 PM [facility] MONOCYTES % 6.3 5.7 - 12.5 % 10/07/2024 12:33 PM [facility] EOSINOPHILS 1.4 0.0 - 5.6 % 10/07/2024 12:33 PM [facility] BASOPHILS 0.3 0.0 - 1.3 % 10/07/2024 12:33 PM [facility] ABS. NEUTROPHILS 4.49 1.40 - 6.00 x10'3/uL 10/07/2024 12:33 PM [facility] IMMATURE GRANS % 0.6(H) 0.0 - 0.5 % 10/07/2024 12:33 PM [facility] ABS. LYMPHOCYTES 2.07 0.80 - 4.70 x10'3/uL 10/07/2024 12:33 PM BUSINESS PERFORMANCE ADVISOR [facility] 10/07/2024 7:37 AM BUSINESS PERFORMANCE ADVISOR Zuleima Hawley NP LABORATORY Final Result Performing Organization Address City/[facility]/ZIP Co de Phone Number [facility] [address] [place] [address], [place] [phone] * HEPATITIS C AB ([facility] ONLY) (02/14/2023 7:29 AM CDT) HEPATITIS C AB NON-REACTI VE NON-REACTI VE 02/14/2023 4:12 PM CDT [facility] 02/14/2023 7:29 AM CDT Zuleima Hawley DIE MAINTENANCE LABORATORY Final Result Performing Organization Address City/[facility] Co de Phone Number [facility] [address] [place] [address], [place] [phone] from Last 3 Months or Most Recently Relevant to Health Maintenance Insurance Care Teams Shipping Hand Relationship Specialty [place] [address] [place] [address] PCP - General Nurse Practitioner Family 07/31/22
--- OUTSIDE RECORDS SUMMARY | 2024-12-13 08:55 | XMS_ITS | Encounter Summary ---
Author Organization [facility] Address [address] [place] [id number] Care Team Providers Care Activities Aide Name Role Phone Zuleima Hawley NP Primary Care Provider [phone] Encounter Details Date Type Department Care Team ([facility] Contact Info) Description 08/25/2022 Cabe na Malahart Message Enc [facility] Family & Internal [address] [address] Zuleima Halwey NP [address] [place] [address] [place] [id number] Lab results Social History Tobacco Use Types Packs/Day Years Used Date Smoking Tobacco: Never Smokeless Tobacco: Never Alcohol Use Standard Drinks/Week Comments Never 0 (1 standard drink = 0.6 oz pur e alcohol) Comments No Sex and Gender Information Value Date Recorded Sex Assigned at Female 08/08/2022 9:58 AM CDT Legal Sex Female 1:33 PM [employer] Gender Identity Female 08/05/2022 10:21 AM CDT Sexual Orientation Straight 08/08/2022 9: 58 AM CDT COVID-19 Exposure Response Date Recorded In the last 10 days, have yo u been in contact with someone who was confirmed or suspected to have Coronavirus/COVID-19? No / Unsure 08/08/2022 9:44 AM CDT documented as of this encounter Plan of Treatment Upcoming Encounters Date Type Department Care Team ([facility] Contact Info) Description 02/02/2025 3:40 PM CDT Office Visit [facility] Family & Internal [address] [place] [address] [place] [address] [facility] [address]. [place] [phone] documented as of this encounter Visit Diagnoses Not on filedocumented in this encounter Additional Health Concerns Infection Onset Date Last Indicated Resolved Time COVID-19 Rule Out 12/11/2023 12/11/2023 12/11/2023 4:11 PM [employer] Influenza - Seasonal 12/11/2023 12/11/2023 024 12:33 AM CDT documented as of this encounter Care Teams Activities Aide Relationship Specialty [place] [address] [facility] [address] [place] [address] PCP - General Nurse Practitioner Family 07/31/22 documented as of this encounter
--- OUTSIDE RECORDS SUMMARY | 2024-12-13 08:55 | XMS_ITS | Data Portability ---
Author Organization [facility] [place] Address [address] [place] [address] Care Team Providers Care Die Stamper Name Role Phone SHANA DUBOSE Electronic Communications Technician Assessment No assessment recorded. Plan of Treatment Reminders Order Date Submit Date Provider Last Modified By Organization Details Last Modified Time Details Appointments None recorded. Lab TSH, ultra-sens itive, serum 2017 018 [facility], [address] [place] [address], [address], [place], [address], 8 04:26:53 TSH + free T4, serum 2016 017 [facility], [address] [facility], [address], [place], [address], 7 06:13:09 HIV 1+2 AB + HIV 1 p24 Ag, qualitativ e immunoassa y, serum 2015 016 [facility], [facility], [address], [place], [address], 6 06:21:08 RPR (rapid plasma reagin), serum 2015 016 [facility], [address] [place], [place] [address]AfterYes Jimbo, [address], [place], [address], 6 06:21:08 CT + NG DNA, PCR, unspecifie d specimen 2015 016 [facility], [address] [place] [address], [address], [place], [address], 6 11:09:32 hepatitis panel (A+B+C), acute, serum 2015 016 [facility], [address], [address], [place], [address], 6 06:21:07 CBC 2015 016 [facility], [address], [address], [place], [address], 6 06:21:06 lipid panel, serum 2015 016 [facility], [address], [address], [place], [address], 6 06:21:07 CMP, serum or plasma 2015 016 [facility], [address], [address], [place], [address], 6 06:21:06 urinalysis , dipstick 2015 016 [facility] In-Office Order, Internal Use Only DO Not Attach Compendium DO Not Attach Compendium, Do Not Delete/merge, [id number] 6 08:44:38 TSH + free T4, serum 2015 016 [facility], [address], [address], [place], [address], 6 06:21:05 Referral None recorded. Procedures None recorded. Surgeries None recorded. Imaging US, thyroid [address] ([facility] [employer]), [address] [place], [address], 7 14:24:40 Medication Orders levothyrox ine 75 mcg tablet 2017 018 [id number], [address] , [place], [place], [id number], 8 10:22:44 albuterol sulfate HFA 90 mcg/actuat ion aerosol inhaler 2016 017 [id number], [address] , [place], [place], [id number], 8 10:17:56 albuterol sulfate HFA 90 mcg/actuat ion aerosol inhaler 2015 016 [facility][id number], [address] , [place], [place], [id number], 8 10:17:56 levothyrox ine 88 mcg tablet 2015 016 [facility] #[id number], [address] , [place], [place], [id number], 8 11:00:57 Patient TargetsNo targets recorded. Patient Instructions Encounter Date Encounter Id Patient Instructions Last Modified By Organization Details Last Modified Time 04/13/2016 [id number] pulmonary function test* mringor Not available 04/14/2016 13:56:21 Patient seen on a day when Dona was down - patient to RTC in 2 weeks for lab f/u and to ensure all information is correctly entered into [facility] Patient will sign LLUVIA for last two office notes and recent labs from Dr. Kiersten church Not available 04/13/2016 13:31:51 04/27/2016 [id number] pulmonary function test* DON[facility] Not available 05/12/2016 15:11:35 03/13/2017 [id number] Scheduled an appointment for [facility] for 2 weeks from [facility] Not available 03/13/2017 14:21:35 06/03/2018 [id number] get labs done today f/u on result [...] 04/14/2016 urina lysis , dipst ick Specific Fleming 1.000 Not Available In-Off ice Order Internal Use Only DO Not Attach Compendium DO Not Attach Compendium, Do Not Delete/merge, 04/13/2016 13:32:50 04/13/20 16 04/14/2016 urina lysis , dipst ick Ketone Negati ve Not Available In-Office Order Internal Use Only DO Not Attach Compendium DO Not Attach Compendium, Do Not Delete/merge, [id number] 04/13/2016 13:32:50 04/13/20 16 04/14/2016 urina lysis , dipst ick Bilirubin Negati ve Not Available In-Office Order Internal Use Only DO Not Attach Compendium DO Not Attach Compendium, Do Not Delete/merge, [id number] 04/13/2016 13:32:50 04/13/20 16 04/14/2016 urina lysis , dipst ick Glucose Negati ve Not Available In-Office Order Internal Use Only DO Not Attach Compendium DO Not Attach Compendium, Do Not Delete/merge, [id number] 04/13/2016 13:32:50 04/13/20 16 04/14/2016 urina lysis , dipst ick Appearance Clear Not Available In-Offi ce Order Internal Use Only DO Not Attach Compendium DO Not Attach Compendium, Do Not Delete/merge, [id number] 04/13/2016 13:32:50 04/13/20 16 04/14/2016 urina lysis , dipst ick Color Yellow Not Available In-Office Order Internal Use Only DO Not Attach Compendium DO Not Attach Compendium, Do Not Delete/merge, [id number] 04/13/2016 13:32:50 04/13/20 16 04/14/2016 CT + [...] PHARY NGEAL SPECI MENS. Not Available [facility] ([facility]) [address] [facility], [place], [address], 04/17/2016 11:09:32 04/13/20 16 04/17/2016 CT + NG DNA, PCR, unspe cifie d speci men chlamydia trachomatis, JESSI NEGATI VE negati ve Not Available [facility] ([facility]) [address] [facility], [place], [address], 04/17/2016 11:09:32 04/13/20 16 04/17/2016 CT + NG DNA, PCR, unspe cifie d speci men neisseria gonorrhoeae, JESSI NEGATI VE negati ve Not Available [facility] ([facility]) [address] [place], [address], 04/17/2016 11:09:32 04/18/20 16 04/19/2016 TSH + free T4, serum TSH 0.916 uIU/m L 0.450- 4.500 Not Available [facility] ([facility]) [address] [place], [address], 04/20/2016 06:21:05 04/18/20 16 04/19/2016 TSH + free T4, serum T4,free(dire ct) 1.30 NG/dL 0.82-1 .77 Not Available [facility] ([facility]) [address] [place], [address], 04/20/2016 06:21:05 04/18/20 16 04/19/2016 CBC WBC 6.1 x10e3 /uL 3.4-10 .8 Not Available [facility] ([facility]) [address] [place], [address], 04/20/2016 06:21:06 04/18/20 16 04/19/2016 CBC RBC 4.61 x10e6 /uL 3.77-5 .28 Not Available [facility] ([facility]) [address] [place], [address], 04/20/2016 06:21:06 04/18/20 16 04/19/2016 CBC hemoglobin 13.1 g/dL 11.1-1 5.9 Not Available [facility] ([facility]) [address] [place], [address], 04/20/2016 06:21:06 04/18/20 16 04/19/2016 CBC hematocrit 39.2 % 34.0-4 6.6 Not Available [facility] ([facility]) [address] [facility] [place], [address], 04/20/2016 06:21:06 04/18/20 16 04/19/2016 CBC MCV 85 fL 79-97 Not Available [facility] ([facility]) [address] [facility] [place], [address], 04/20/2016 06:21:06 04/18/20 16 04/19/2016 CBC MCH 28.4 pg 26.6-3 3.0 Not Available [facility] ([facility]) [address] [facility] [place], [address], 04/20/2016 06:21:06 04/18/20 16 04/19/2016 CBC MCHC 33.4 g/dL 31.5-3 5.7 Not Available [facility] ([facility]) [address] [facility], [place], [address], 04/20/2016 06:21:06 04/18/20 16 04/19/2016 CBC RDW 13.1 % 12.3-1 5.4 Not Available [facility] ([facility]) [address] [place], [address], 04/20/2016 06:21:06 04/18/20 16 04/19/2016 CBC platelets 222 x10e3 /uL 150-37 9 Not Available [facility] ([facility]) [address] [place], [address], 04/20/2016 06:21:06 04/18/20 16 04/19/2016 CBC neutrophils 56 % Not Avai lable [facility] ([facility]) [address] [place], [address], 04/20/2016 06:21:06 04/18/20 16 04/19/2016 CBC lymphs 38 % Not Available [facility] ([facility]) [address] [place], [address], 04/20/2016 06:21:06 04/18/20 16 04/19/2016 CBC monocytes 5 % Not Availa ble [facility] ([facility]) [address] [place], [address], 04/20/2016 06:21:06 04/18/20 16 04/19/2016 CBC eos 1 % Not Available [facility]) [address] [place], [address], 04/20/2016 06:21:06 04/18/20 16 04/19/2016 CBC basos 0 % Not Available [facility]) [address] [place], [address], 04/20/2016 06:21:06 04/18/20 16 04/19/2016 CBC immature cells LAUNCH ENGINEER Not Available [facility] ([facility]) [address] [place], [address], 04/20/2016 06:21:06 04/18/20 16 04/19/2016 CBC neutrophils (absolute) 3.4 x10e3 /uL 1.4-7. 0 Not Available [facility] ([facility]) [address] [place], [address], 04/20/2016 06:21:06 04/18/20 16 04/19/2016 CBC lymphs (absolute) 2.3 x10e3 /uL 0.7-3. 1 Not Available [facility] ([facility]) [address] [place], [address], 04/20/2016 06:21:06 04/18/20 16 04/19/2016 CBC monocytes(ab solute) 0.3 x10e3 /uL 0.1-0. 9 Not Available [facility] ([facility]) [address] [place], [address], 04/20/2016 06:21:06 04/18/20 16 04/19/2016 CBC eos (absolute) 0.1 x10e3 /uL 0.0-0. 4 Not Available [facility] ([facility]) [address] [facility] [place], [address], 04/20/2016 06:21:06 04/18/20 16 04/19/2016 CBC baso (absolute) 0.0 x10e3 /uL 0.0-0. 2 Not Available [facility] ([facility]) [address] [facility], [place], [address], 04/20/2016 06:21:06 04/18/2004/19/2016 CBC immature granulocytes 0 % Not Available [facility]) [address] [facility], [place], [address], 04/20/2016 06:21:06 04/18/20 16 04/19/2016 CBC immature grans (abs) 0.0 x10e3 /uL 0.0-0. 1 Not Available [facility] ([facility]) [address] [facility], [place], [address], 04/20/2016 06:21:06 04/18/2004/19/2016 CBC NRBC LAUNCH ENGINEER Not Available [facility] ([facility]) [address] [facility], [place], [address], 04/20/2016 06:21:06 04/18/2004/19/2016 CBC hematology comments: LAUNCH ENGINEER Not Available [facility] ([facility]) [address] [facility], [place], [address], 04/20/2016 06:21:06 04/18/2004/19/2016 CMP, serum or plasm a glucose, serum 83 mg/dL 65-99 Not Available [facility] ([facility]) [address] [place], [address], 04/20/2016 06:21:06 04/18/2004/19/2016 CMP, serum or plasm a BUN 10 mg/dL 6-20 Not Available [facility] ([facility]) [address] [facility] [place], [address], 04/20/2016 06:21:06 04/18/20 16 04/19/2016 CMP, serum or plasm a creatinine, serum 0.74 mg/dL 0.57-1 .00 Not Available [facility] ([facility]) [address] [facility] [place], [address], 04/20/2016 06:21:06 04/18/20 16 04/19/2016 CMP, serum or plasm a eGFR if nonafricn AM 113 mL/mi n/1.7 3 >59 Not Available [facility] ([facility]) [address] [facility] [place], [address], 04/20/2016 06:21:06 04/18/20 16 04/19/2016 CMP, serum or plasm a eGFR if africn AM 130 mL/mi n/1.7 3 >59 Not Available [facility] ([place] [facility]) [address] [facility] [place], [address], 04/20/2016 06:21:06 04/18/20 16 04/19/2016 CMP, serum or plasm a BUN/creatini ne ratio 14 8-20 Not Available [facility] ([facility]) [address] [facility] [place], [address], 04/20/2016 06:21:06 04/18/20 16 04/19/2016 CMP, serum or plasm a sodium, serum 142 mmol/ L 134-14 4 Not Available [facility] ([place] [facility]) [address] [facility] [place], [address], 04/20/2016 06:21:06 04/18/20 16 04/19/2016 CMP, serum or plasm a potassium, serum 4.5 mmol/ L 3.5-5. 2 Not Available [facility] ([place] [facility]) [address] [facility] [place], [address], 04/20/2016 06:21:06 04/18/20 16 04/19/2016 CMP, serum or plasm a chloride, serum 103 mmol/ L 97-108 Not Available [facility] ([facility]) [address] [facility] [place], [address], 04/20/2016 06:21:06 04/18/20 16 04/19/2016 CMP, serum or plasm a carbon dioxide, total TNP mmol/ L TEST NOT PERFO RMED. DETER IORAT ION OCCUR RED DURIN G SPECI MEN HANDL ING. Not Available [facility] ([facility]) [address] [facility] [place], [address], 04/20/2016 06:21:06 04/18/20 16 04/19/2016 CMP, serum or plasm a calcium, serum 9.1 mg/dL 8.7-10 .2 Not Available [facility] ([facility]) [address] [place], [address], 04/20/2016 06:21:06 04/18/20 16 04/19/2016 CMP, serum or plasm a protein, total, serum 7.3 g/dL 6.0-8. 5 Not Available [facility] ([facility]) [address] [place], [address], 04/20/2016 06:21:06 04/18/20 16 04/19/2016 CMP, serum or plasm a albumin, serum 4.7 g/dL 3.5-5. 5 Not Available [facility] ([facility]) [address] [place], [address], 04/20/2016 06:21:06 04/18/20 16 04/19/2016 CMP, serum or plasm a globulin, total 2.6 g/dL 1.5-4. 5 Not Available [facility] ([facility]) [address] [place], [address], 04/20/2016 06:21:06 04/18/20 16 04/19/2016 CMP, serum or plasm a A/G ratio 1.8 1.1-2. 5 Not Available [facility] ([facility]) [address] [facility] [place], [address], 04/20/2016 06:21:06 04/18/20 16 04/19/2016 CMP, serum or plasm a bilirubin, total 0.5 mg/dL 0.0-1. 2 Not Available [facility] ([facility]) [address] [facility] [place], [address], 04/20/2016 06:21:06 04/18/20 16 04/19/2016 CMP, serum or plasm a alkaline phosphatase, S 69 IU/L 39-117 Not Available [facility]) [address] [facility] [place], [address], 04/20/2016 06:21:06 04/18/20 16 04/19/2016 CMP, serum or plasm a AST (SGOT) 14 IU/L 0-40 Not Available [facility] ([facility]) [address] [facility] [place], [address], 04/20/2016 06:21:06 04/18/20 16 04/19/2016 CMP, serum or plasm a ALT (SGPT) 11 IU/L 0-32 Not Available [facility] ([facility]) [address] [facility] [place], [address], 04/20/2016 06:21:06 04/18/20 16 04/19/2016 lipid panel , serum cholesterol, total 171 mg/dL 100-19 9 Not Available [facility] ([facility]) [address] [facility] [place], [address], 04/20/2016 06:21:07 04/18/20 16 04/19/2016 lipid panel , serum triglyceride s 84 mg/dL 0-149 Not Available [facility] ([facility]) [address] [facility] [place], [address], 04/20/2016 06:21:07 04/18/20 16 04/19/2016 lipid panel , serum HDL cholesterol 78 mg/dL >39 ACCOR DING TO ATP-I II GUIDE LINES , HDL-C >59 MG/DL IS CONSI DERED A NEGAT GUDELIA RISK FACTO R FOR CHD. Not Available [facility] ([facility]) [address] [facility], [place], [address], 04/20/2016 06:21:07 04/18/20 16 04/19/2016 lipid panel , serum VLDL cholesterol mauro 17 mg/dL 5-40 Not Available [facility]) [address] [place], [address], 04/20/2016 06:21:07 04/18/20 16 04/19/2016 lipid panel , serum LDL cholesterol calc 76 mg/dL 0-99 Not Available [facility]) [address] [facility], [place], [address], 04/20/2016 06:21:07 04/18/20 16 04/19/2016 lipid panel , serum comment: LAUNCH ENGINEER Not Available [facility] ([facility]) [address] [facility], [place], [address], 04/20/2016 06:21:07 04/18/20 16 04/19/2016 lipid panel , serum T. chol/HDL ratio 2.2 ratio _unit s 0.0-4. 4 T. CHOL/ HDL RATIO MEN WOMEN 1/2 AVG.R ISK 3.4 3.3 AVG.R ISK 5.0 4.4 2X AVG.R ISK 9.6 7.1 3X AVG.R ISK 23.4 11.0 Not Available [facility] ([facility]) [address] [facility], [place], [address], 04/20/2016 06:21:07 04/18/20 16 04/19/2016 hepat itis panel (A+B+ C), acute , serum hep A Ab, IgM NEGATI VE negati ve Not Available [facility] ([facility]) [address] [place], [address], 04/20/2016 06:21:07 04/18/20 16 04/19/2016 hepat itis panel (A+B+ C), acute , serum HBsAg screen NEGATI VE negati ve Not Available [facility] ([facility]) [address] [place], [address], 04/20/2016 06:21:07 04/18/20 16 04/19/2016 hepat itis panel (A+B+ C), acute , serum hep B core Ab, IgM NEGATI VE negati ve Not Available [facility] ([facility]) [address] [place], [address], 04/20/2016 06:21:07 04/18/20 16 04/19/2016 hepat itis [...] ION TEST (5507 13). Not Available [facility] ([facility]) [address] [place], [address], 04/20/2016 06:21:07 04/18/20 16 04/20/2016 RPR (rapi d plasm a reagi n), serum RPR NON REACTI VE non reacti ve Not Available [facility] ([facility]) [address] [place], [address], 04/20/2016 06:21:08 04/18/20 16 04/19/2016 HIV 1+2 AB + HIV 1 p24 Ag, quali tativ e immun oassa y, serum HIV screen 4TH generation wrfx NON REACTI VE non reacti ve Not Available [facility] ([facility]) [address] [place], [address], 04/20/2016 06:21:08 03/13/20 17 03/14/2017 TSH + free T4, serum TSH 0.175 uIU/m L 0.450- 4.500 below low normal Not Available [facility] ([facility]) [address] [place], [address], 03/14/2017 06:13:09 03/13/20 17 03/14/2017 TSH + free T4, serum T4,free(dire ct) 1.51 NG/dL 0.82-1 .77 Not Available [facility] ([facility]) [address] [place], [address], 03/14/2017 06:13:09 06/03/20 18 06/04/2018 TSH, ultra -sens itive , serum TSH 1.320 uIU/m L 0.450- 4.500 Not Available [facility] ([facility]) [address] [place], [address], 06/04/2018 10:16:27 05/12/20 16 05/05/2016 pulmo nary funct ion test* No observ ation record ed. [facility] ([facility]) [address] [place], [address], 05/17/2016 17:00:29 01/09/20 19 US, obste tric, limit ed No observ ation record ed. marli Cox [address] [facility] [address], [place], [address], 01/10/2019 21:36:00 Result Notes None recorded. Problems Name Problem SNOMED Code Status Onset Date Resolution Date Notes Provider Name and Address Organization Details Recorded Time Dyspnea 132596108 Active Gale Albert PA-C Attn: Accounting ,[address] [facility], [place], [address] , [place] [facility] 6 12:55:21 Hypothyroi dism 08738317 Active Gale Albert PA-C Attn: Accounting ,[address] [facility], [place], [address] , [facility] 6 12:55:21 Overweight 122380631 Active 2016 Gale Albert PA-C Attn: Accounting ,[address] [facility], [place], [address] , [facility] 7 14:07:25 History of tobacco use 8371817155262 Active 2016 Gale Albert PA-C Attn: Accounting ,[address] [facility], [place], [address] , [facility] 7 14:21:16 Problem Notes None recorded. Procedures Surgical History Date Name Laterality Status Provider Name and Address Organization Details Recorded Time 10/08/2011 Other completed Gale Albert PA-C Attn: Accounting,[address] [place], [address], [facility] 04/27/2016 12:33:15 Imaging Results Imaging Date Name Status LastModified by Organiz ation Details LastModified Time 05/05/2016 pulmonary function test* completed [address] (Imaging) [address] [place], [address], 05/17/2016 17:00:29 01/08/2019 US, obstetric, limited completed marli Cox [address] [facility] [address], [place], [address], 01/10/2019 21:36:00 Procedure Notes None recorded. Medical [...] height Body mass index (BMI) Body weight Oxygen saturation Oxygen saturation in Arterial blood by Pulse oximetry Heart rate Respiratory rate Body temperature Systolic blood pressure Diastolic blood pressure Provider Name and Address Organization Details Last Updated DateTime 8 162.56 cm 29.4 kg/m2 86615.1 g 99 % 99 % 76 /min 12 /min 98.2 [degF] 124 mm[Hg] 70 mm[Hg] Winston Braswell [facility] 8 10:17:28 Date Recorded Body height Body temperature Heart rate Respiratory rate Body mass index (BMI) Body weight Systolic blood pressure Diastolic blood pressure Provider Name and Address Organization Details Last Updated DateTime 6 162.56 cm 97.8 [degF] 68 /min 12 /min 28.8 kg/m2 35958.5 1816 g 124 mm[Hg] 70 mm[Hg] Winston Braswell [facility] 6 12:14:38 Date Recorded Body height Body weight Body mass index (BMI) Heart rate Respiratory rate Body temperature Systolic blood pressure Diastolic blood pressure Provider Name and Address Organization Details Last Updated DateTime 7 162.56 cm 55652.7 4 g 28.3 kg/m2 76 /min 12 /min 98.2 [degF] 120 mm[Hg] 78 mm[Hg] Gale Albert PA-C Attn: Mila jackson,[address] [facility], [place], [address], [facility] 7 14:05:06 Social History Question Answer Notes LastModified by Organizat ion Details LastModified Time Tobacco Smoking Status Never Smoker Winston Braswell nando, [facility] 04/27/2016 12:23:21 Do You Have An [...] High Blood Pressure N Atrial Fibrillation N Kidney or Bladder Problems N Thyroid Problems Y GI Problems N Depression N COPD N Blood Clots N Skin Problems N Anemia N Heart Attack (RI) N Anxiety Disorder N Diabetes N Muscle, Joint, or Bone Problems N Seizures/Epilepsy N Acid Reflux (GERD) N Cancer N Stroke N Asthma N Allergies N High Cholesterol N Hepatitis N Liver Disease N Headaches N Heart Failure N Osteoporosis N Gynecological History Statement/Question Response Flow Heavy [...] SNOMED-CT Code Diagnosis ICD10 Code Diagnosis Note [id number] [facility] (Adult Med) [address] [place] [address] 04/13/2016 12:26:15 04/13/2016 13:34:13 Dyspnea 666476447 R06.00 Will check PFTs for possible asthma Patient quit smoking 6 years ago Venereal d isease screening 010753213 Z11.3 Hypothyroidism 24388425 E03.9 Currently taking levothyrox ine 88mcg - will recheck levels today She states that she has plenty of medication to get her to her f/u appointmen t in 2 weeks Adult [facility] th examination 900126429 Z00.00 25YO female here to establish care. Only reason she is switching is because Dr. Burch does not accept her insurance. [id number] [facility] (Adult Med) [address] [place] [address] 04/27/2016 11:55:42 04/27/2016 12:57:16 Hypothyroidism 63609048 E03.9 Currently taking levothyrox ine 88mcg - continue f/u in one year/PRN Dyspnea 559234130 R06.00 Will check PFTs - patient given order today Patient quit smoking 6 years ago [id number] [facility] (Adult Med) [address] [place] [address] 03/13/2017 14:03:43 03/14/2017 14:24:40 Hypothyroidism 86376544 E03.9 Currently taking levothyrox ine 88mcg - will recheck levels at this timePatien t feels like she can't swallow and is worried about her thryoid - will check US - discussed that her PE was unremarkab leDependin g upon thyroid US, can also refer to ENT or GI Overweight 740630658 E66 .3 Advised 30 minutes of exercise 5 days/week Advised to not drink her calories Advised 3 balanced meals/day with plenty of fruits and vegetables Dyspnea 762549397 R06.00 controlled well with Ventolin PRN Patient quit smoking 6 years ago Adult [facility] th examination 139721761 Z00.01 25YO female here for annual f/u History of tobacco use 9833939140 103 Z87.891 Quit in 2009 [id number] AMAN NEVAREZC Yoan (Adult Med) [address] [place] [address] 06/03/2018 10:10:38 06/04/2018 10:46:14 Hypothyroidism 42236679 E03.9 continue levothyrox ine 75 mcg check labs today f/u on lab Health Concerns Section Related Observation LastModified by Organization Nikko ls LastModified Time None Recorded Concern Status LastModified by Organization Details LastModified Time None Recorded Advance Directives Directive N: Payers Encounter Date Sequence Insurance Name Policy Number Policy Escobedo Covered Member ID Escobedo Member ID Guarantor Name 04/13/2016 1 *SELF PAY* As jeramie Sousa 04/27/2016 1 *SELF PAY* As jeramie Sousa 04/27/2016 1 [facility] (MEDICAID HMO) Briseida Sousa [id number] Briseida Sousa 03/13/2017 1 [facility] (MEDICAID HMO) Briseida Sousa [id number] Briseiad Sousa 06/03/2018 1 [facility] (MEDICAID HMO) Briseida Sousa [id number] Briseida Sousa Notes Date Note Type Note Provider Name and Address Organization Details Recorded Time 04/13/2016 text/html Here to [facility]. Patient states that she saw Dr. Burch in the past but no longer accepts her insurance. Gale Albert PA-C Attn: [address]ing[address] [place], [address], [facility] 04/13/2016 13:34:03 04/27/2016 text/html Here for lab f/u Gale Albert PA-C Attn: [address]ing[address] [place], [address], [facility] 04/27/2016 12:57:07 03/13/2017 text/html ThyroidReported bypatient.Quality:wor sening [...] swallowing. Gale Albert PA-C Attn: Accounting[address] [facility], [place], [address], [facility] [place] [place] 03/13/2017 14:23:28 06/03/2018 text/html ThyroidReported bypatient.Quality:not changing [...] medication refill GATO NEVAREZ Attn: Accounting[address] [facility], [place], [address], [facility] [place] 06/03/2018 10:27:22 OBGyn Episode No OBEpisode recorded.
--- OUTSIDE RECORDS SUMMARY | 2024-12-13 08:55 | XMS_ITS | Data Portability ---
Author Organization [facility] Address [address] [address] [place] [address] Care Team Providers Care Technical Sales Support Specialist Name Role Phone AVA EUFEMIA Primary Care Provider Assessment No assessment recorded. Plan of Treatment Reminders Order Date Submit Date Provider Last Modified By Organization Details Last Modified Time Details Appointments None recorded. Lab urinalysis, dipstick 2022 023 [facility] [place], [address], [place], [address], 3 14:12:57 Referral None recorded. Procedures None recorded. Surgeries robotic assisted hysterectom y with salpingecto my (SURG) 2022 023 [facility], [address] [facility], [place], [address], 3 11:50:15 Imaging US, pelvis [address], [address], [place], [address], 3 13:17:20 US, transvagina l [address], [address], [place], [address], 3 13:17:20 Medication Orders None recorded. Patient TargetsNo targets recorded. Patient InstructionsNo instructions recorded. Reason for Referral None Reported. Results Created Date Observation Date Name Description Value Unit Range Abnormal Flag Note LastModifiedBy Organization Detail LastModifiedTime 11/03/19 23 11/03/2022 CBC W/DIF F WBC 6.9 10'3/ uL 3.6-10 .2 Not Available [facility] (Lab) [address], [place], [address], 11/04/2022 03:11:06 11/03/19 23 11/03/2022 CBC W/DIF F RBC 4.72 10'6/ uL (based on docume nted legal sex) 4.10-5 .30 Not Available [facility] (Lab) [address] [place], [address], 11/04/2022 03:11:06 11/03/19 23 11/03/2022 CBC W/DIF F HGB 13.6 g/dL (based on docume nted legal sex) 11.9-1 5.8 Not Available [facility] (Lab) [address] [place], [address], 11/04/2022 03:11:06 11/03/19 23 11/03/2022 CBC W/DIF F HCT 40.9 % (based on docume nted legal sex) 37.4-4 8.3 Not Available [facility] (Lab) [address] [place], [address], 11/04/2022 03:11:06 11/03/19 23 11/03/2022 CBC W/DIF F MCV 86.7 fL 82.0-9 9.0 Not Available [facility] (Lab) [address] [place], [address], 11/04/2022 03:11:06 11/03/19 23 11/03/2022 CBC W/DIF F MCH 28.8 pg 27.0-3 3.0 Not Available [facility] (Lab) [address] [place], [address], 11/04/2022 03:11:06 11/03/19 23 11/03/2022 CBC W/DIF F MCHC 33.3 g/dL 32.0-3 6.0 Not Available [facility] (Lab) [address], [place], [address], 11/04/2022 03:11:06 11/03/19 23 11/03/2022 CBC W/DIF F RDW 12.6 % 11.0-1 5.0 Not Available [facility] (Lab) [address], [place], [address], 11/04/2022 03:11:06 11/03/19 23 11/03/2022 CBC W/DIF F plt 249 10'3/ uL 150-45 0 Not Available [facility] (Lab) [address], [place], [address], 11/04/2022 03:11:06 11/03/19 23 11/03/2022 CBC W/DIF F MPV 10.3 fL 9.8-12 .7 Not Available [facility] (Lab) [address], [place], [address], 11/04/2022 03:11:06 11/03/19 23 11/03/2022 CBC W/DIF F NRBC's 0.0 % 0 Not Available [facility] (Lab) [address], [place], [address], 11/04/2022 03:11:06 11/03/19 23 11/03/2022 CBC W/DIF F absolute NRBCs 0.0 10'3/ uL 0 Not Available [facility] (Lab) [address] [place], [address], 11/04/2022 03:11:06 11/03/19 23 11/03/2022 CBC W/DIF F neutrophils 57.4 % 37.0-7 2.0 Not Available [facility] (Lab) [address] [place], [address], 11/04/2022 03:11:06 11/03/19 23 11/03/2022 CBC W/DIF F lymphocytes 33.0 % 16.0-4 8.0 Not Available [facility] (Lab) [address], [place], [address], 11/04/2022 03:11:06 11/03/19 23 11/03/2022 CBC W/DIF F monocytes 7.3 % 4.0-14 .0 Not Available [facility] (Lab) [address], [place], [address], 11/04/2022 03:11:06 11/03/19 23 11/03/2022 CBC W/DIF F eosinophils 1.3 % 0.0-9. 0 Not Available [facility] (Lab) [address], [place], [address], 11/04/2022 03:11:06 11/03/19 23 11/03/2022 CBC W/DIF F basophils 0.7 % 0.0-2. 0 Not Available [facility] (Lab) [address], [place], [address], 11/04/2022 03:11:06 11/03/19 23 11/03/2022 CBC W/DIF F immature granulocytes 0.3 % no define d refere nce range Not Available [facility] (Lab) [address], [place], [address], 11/04/2022 03:11:06 11/03/19 23 11/03/2022 CBC W/DIF F absolute neutrophils 4.0 10'3/ uL 1.1-6. 0 Not Available [facility] (Lab) [address], [place], [address], 11/04/2022 03:11:06 11/03/19 23 11/03/2022 CBC W/DIF F absolute lymphocytes 2.3 10'3/ uL 0.7-3. 4 Not Available [facility] (Lab) [address] [facility], [place], [address], 11/04/2022 03:11:06 11/03/19 23 11/03/2022 CBC W/DIF F absolute monocytes 0.5 10'3/ uL 0.3-1. 0 Not Available [facility] (Lab) [address] [facility], [place], [address], 11/04/2022 03:11:06 11/03/19 23 11/03/2022 CBC W/DIF F absolute eosinophils 0.1 10'3/ uL 0.0-0. 6 Not Available [facility] (Lab) [address] [facility], [place], [address], 11/04/2022 03:11:06 11/03/1911/03/2022 CBC W/DIF F absolute basophils 0.1 10'3/ uL 0.0-0. 1 Not Available [facility] (Lab) [address] [facility] [facility], [place], [address], 11/04/2022 03:11:06 11/03/1911/03/2022 CBC W/DIF F absolute immature granulocytes 0.0 10'3/ uL 0.00-0 .10 2022 1:44 AM: P indic ates parti al resul ts on a panel have been relea sed. Addit ional resul ts will follo w. 2022 1:44 AM: This resul t has been final verif ied. No addit ional or aleman ed resul ts are expec prabha. Not Available [facility] (Lab) [address] [facility] [facility], [place], [address], 11/04/2022 03:11:06 11/03/1911/03/2022 CMP(C OMPRE HENSI VE METAB OLIC PANEL ) sodium 141 mmol/ L 133-14 6 Not Available [facility] (Lab) [address] [facility] [facility], [place], [address], 11/04/2022 03:11:06 11/03/19 23 11/03/2022 CMP(C OMPRE HENSI VE METAB OLIC PANEL ) potassium 4.1 mmol/ L 3.5-5. 1 Not Available [facility] (Lab) [address] [facility] [facility], [place], [address], 11/04/2022 03:11:06 11/03/19 23 11/03/2022 CMP(C OMPRE HENSI VE METAB OLIC PANEL ) chloride 103 mmol/ L 98-107 Not Available [facility] (Lab) [address] [facility], [place], [address], 11/04/2022 03:11:06 11/03/19 23 11/03/2022 CMP(C OMPRE HENSI VE METAB OLIC PANEL ) carbon dioxide 28 mmol/ L 21-31 Not Available [facility] (Lab) [address] [facility] [facility], [place], [address], 11/04/2022 03:11:06 11/03/19 23 11/03/2022 CMP(C OMPRE HENSI VE METAB OLIC PANEL ) anion gap 10 mmol/ L 4-13 Not Available [facility] (Lab) [address] [facility] [facility], [place], [address], 11/04/2022 03:11:06 11/03/19 23 11/03/2022 CMP(C OMPRE HENSI VE METAB OLIC PANEL ) blood urea nitrogen 15 mg/dL 7-25 Not Available [facility] (Lab) [address], [place], [address], 11/04/2022 03:11:06 11/03/19 23 11/03/2022 CMP(C OMPRE HENSI VE METAB OLIC PANEL ) creatinine 0.71 mg/dL 0.60-1 .30 Not Available [facility] (Lab) [address] [facility] [facility], [place], [address], 11/04/2022 03:11:06 11/03/19 23 11/03/2022 CMP(C OMPRE HENSI VE METAB OLIC PANEL ) egfrcr (CKD-epi 2020) >90 mL/mi n/1.7 3_m2 >=60 Not Available [facility] (Lab) [address], [place], [address], 11/04/2022 03:11:06 11/03/19 23 11/03/2022 CMP(C OMPRE HENSI VE METAB OLIC PANEL ) calcium 9.3 mg/dL 8.3-10 .5 Not Available [facility] (Lab) [address], [place], [address], 11/04/2022 03:11:06 11/03/19 23 11/03/2022 CMP(C OMPRE HENSI VE METAB OLIC PANEL ) glucose 87 mg/dL 70-100 Not Available [facility] (Lab) [address], [place], [address], 11/04/2022 03:11:06 11/03/19 23 11/03/2022 CMP(C OMPRE HENSI VE METAB OLIC PANEL ) protein, total 7.4 g/dL 6.4-8. 3 Not Available [facility] (Lab) [address], [place], [address], 11/04/2022 03:11:06 11/03/19 23 11/03/2022 CMP(C OMPRE HENSI VE METAB OLIC PANEL ) albumin 4.6 g/dL 3.5-5. 0 Not Available [facility] (Lab) [address], [place], [address], 11/04/2022 03:11:06 11/03/19 23 11/03/2022 CMP(C OMPRE HENSI VE METAB OLIC PANEL ) ALT 13 units /L 9-43 Not Available [facility] (Lab) [address], [place], [address], 11/04/2022 03:11:06 11/03/19 23 11/03/2022 CMP(C OMPRE HENSI VE METAB OLIC PANEL ) alkaline phosphatase 49 units /L 34-104 Not Available [facility] (Lab) [address] [facility], [place], [address], 11/04/2022 03:11:06 11/03/19 23 11/03/2022 CMP(C OMPRE HENSI VE METAB OLIC PANEL ) AST 13 units /L 13-39 Not Available [facility] (Lab) [address] [place], [address], 11/04/2022 03:11:06 11/03/19 23 11/03/2022 CMP(C OMPRE HENSI VE METAB OLIC PANEL ) bilirubin, total 0.7 mg/dL 0.2-1. 2 Not Available [facility] (Lab) [address] [facility], [place], [address], 11/04/2022 03:11:06 11/03/19 23 11/03/2022 TSH, REFLE X FREE T4 TSH 0.99 uIU/m L 0.30-5 .33 Not Available [facility] (Lab) [address], [place], [address], 11/04/2022 03:11:07 11/03/1911/03/2022 BHCG, QUANT ITATI VE [...] Weeks 8,099 - 58,17 6 Not Available [facility] (Lab) [address], [place], [address], 11/04/2022 03:11:07 11/03/19 23 11/03/2022 PROLA CTIN prolactin, total 9.40 NG/mL 4.79-2 3.30 This assay was perfo rmed using [employer] ratio n reage nts and test kits. Value s obtai zaira with other assay metho ds or kits canno t be used inter aleman eably . Not Available [facility] (Lab) [address], [place], [address], 11/04/2022 03:11:07 11/03/19 23 11/03/2022 IMAGE GUIDE D PAP AND HPV REGAR DLESS image guided Pap, HPV regardless of Pap result SEE RESULT S BELOW CASE REPOR T: Cytol ogy Gynec ologi jone Repor t Case: [id number] Autho julissa g Provi ailyn: Thania Browning, BALBIR Colle cted: 11/03 1149 Order ing Locat ion: [place] Patho log[facility] Recei atmara: 11/06 1004 First Scree n: Cherri allen, Irma bowers, CT Speci men: Scree melissa Pap - Image d, Cervi x STATE MENT OF ADEQU ACY: Satis facto ry for evalu ation Trans forma tion zone compo nent prese nt FINAL DIAGN OSIS: Negat abel for Intra epith elial Darrion navarro or Bran rosenbaum (NIL) . Elect jose cruz garcia maldonado [...] as clini suman bowling nted. Not Available [facility] (Lab) [address], [place], [address], 11/07/2022 19:54:27 11/03/19 23 11/03/2022 TRICH OMONA S VAGIN ALLEY (RRNA ) trichomonas vaginalis ribosomal RNA (rrna) Negati ve negati ve Not Available [facility] (Lab) [address], [place], [address], 11/07/2022 19:54:28 11/03/19 23 11/03/2022 CT/GC (GARTH) , THINP REP VIAL chlamydia trachomatis, PCR Negati ve negati ve Not Available [facility] (Lab) [address], [place], [address], 11/07/2022 19:54:28 11/03/19 23 11/03/2022 CT/GC (GARTH) , THINP REP VIAL neisseria gonorrhoeae, PCR Negati ve negati ve Not Available [facility] (Lab) [address], [place], [address], 11/07/2022 19:54:28 11/10/19 23 11/10/2022 US, pelvi s No observ ation record ed. [email or web address] [place], [place], [address], 11/10/2022 11:47:33 11/10/19 23 11/10/2022 US, trans vagin al No observ ation record ed. [email or web address] [place] [address], [place], [address], 11/10/2022 11:47:25 11/10/19 23 11/10/2022 US, pelvi s No observ ation record ed. [email or web address] [address], [place], [address], 11/16/2022 11:10:33 Result Notes None recorded. Problems Name Problem SNOMED Code Status Onset Date Resolution Date Notes Provider Name and Address Organization Details Recorded Time Normal pregnanc y in multigra monica [id number] 4106 Completed 201705/18/2021 Encounte r for supervis ion of other normal pregnanc y, 2nd trimeste r;Record ed Elsewher e: No [facility] Laboratory Technologist rudolph: N Yazti ce ID: 0001 Suleiman lable Time: 10:15:00 AM Joy collier, [facility] 1 16:41:29 Finding of contents of cervix [id number] Completed 201605/18/2021 Weeks of gestatio n of pregnanc y not specifie d;Record ed Elsewher e: No Locat ion: [facility] S ource: EHR Blood Bank Laboratory Technologist rudolph: N Yazti ce ID: 0001 Suleiman lable Time: 02:00:00 PM Joy collier, [facility] 16:41:03 Embryoni c cyst of cervix, vagina and external female genitali a Completed 201805/18/2021 Embryoni c vaginal cyst;Rec orded Elsewher e: No Locat ion: [facility] S ource: EHR Blood Bank Laboratory Technologist rudolph: N Yazti ce ID: 0001 Suleiman lable Time: 02:30:00 PM Joy collier, [facility] 16:40:37 Gestatio n period, 32 weeks [id number] Completed 201805/18/2021 32 weeks gestatio n of pregnanc y;Record ed Elsewher e: No Locat ion: [facility] S ource: EHR Blood Bank Laboratory Technologist rudolph: N Yazti ce ID: 0001 Suleiman lable Time: 02:00:00 PM Joy collier, [facility] 16:41:56 Educatio n Completed 201905/18/2021 Encounte r for other general counseli ng and advice on contrace ption;Re corded Elsewher e: No Locat ion: [facility] S ource: EHR Blood Bank Laboratory Technologist rudolph: N Yazti ce ID: 0001 Suleiman lable Time: 01:15:00 PM Joy collier, [facility] 16:41:16 Amenorrh ea [id number] Completed 201605/18/2021 Amenorrh ea, unspecif ied;Juvenal rded Elsewher e: No [facility] Blood Bank Laboratory Technologist rudolph: N Yazti ce ID: 0001 Suleiman lable Time: 08:45:00 AM Joy collier, [facility] 16:40:25 Developm ental disorder Completed 201805/18/2021 Malforma tion of placenta , unspecif ied, third trimeste r;Record ed Elsewher e: No Locat ion: [facility] S ource: EHR Blood Bank Laboratory Technologist rudolph: N Matilde ce ID: 0001 Suleiman lable Time: 01:30:00 PM Joy collier, [facility] 16:40:56 Uterine size for dates discrepa ncy Completed 201605/18/2021 Uterine size-slime e discrepa ncy, first trimeste r;Record ed Elsewher e: No Locat ion: [facility] S ource: EHR Blood Bank Laboratory Technologist rudolph: N Yazfroylan ce ID: 0001 Suleiman lable Time: 02:00:00 PM Joy collier, [facility] 16:40:44 Pregnanc y detectio n examinat ion Completed 201705/18/2021 Encounte r for pregnanc y test, result positive ;Recorde d Elsewher e: No Locat ion: [facility] S ource: EHR Blood Bank Laboratory Technologist rudolph: N Yazti ce ID: 0001 Suleiman lable Time: 01:15:00 PM Joy collier, [facility] 16:41:50 Procedur e on genitour inary system Completed 201805/18/2021 Encounte r for surgical aftercar e followin g surgery on the genitour inary system;R ecorded Elsewher e: No Locat ion: [facility] S ource: EHR Blood Bank Laboratory Technologist rudolph: N Yazti ce ID: 0001 Suleiman lable Time: 01:30:00 PM Joy collier, [facility] 16:40:21 Postoper ative care Completed 201805/18/2021 Encounte r for surgical aftercar e followin g surgery on the genitour inary system;R ecorded Elsewher e: No [facility] S ource: EHR Blood Bank Laboratory Technologist rudolph: N Yazti ce ID: 0001 Suleiman lable Time: 01:30:00 PM Joy collier, [facility] 16:40:23 Gestatio n period, 36 weeks [id number] Completed 201805/18/2021 36 weeks gestatio n of pregnanc y;Record ed Elsewher e: No Locat ion: [facility] S ource: EHR Blood Bank Laboratory Technologist rudolph: N Yazti ce ID: 0001 Suleiman lable Time: 01:30:00 PM Joy collier, [facility] 16:41:37 Finding of menstrua l bleeding Completed 201905/18/2021 Menorrha carol;Juvenal rded Elsewher e: No Locat ion: [facility] S ource: EHR Blood Bank Laboratory Technologist rudolph: N Practi ce ID: 0001 Suleiman lable Time: 01:15:00 PM Joy collier, [facility] 16:40:36 Dysuria [id number] Completed 201605/18/2021 Dysuria; Recorded Elsewher e: No [facility] EHR Blood Bank Laboratory Technologist rudolph: N Practi ce ID: 0001 Suleiman lable Time: 02:30:00 PM Joy collier [facility] 16:41:33 Hemorrha gic complica tion of pregnanc y [id number] Completed 201705/18/2021 Other hemorrha ge in early pregnanc y;Record ed Elsewher e: No Locat ion: [facility] S ource: EHR Blood Bank Laboratory Technologist rudolph: N Matilde ce ID: 0001 Suleiman lable Time: 04:00:00 PM Joy collier, [facility] 16:40:15 Nonpurul ent mastitis associat ed with lactatio n [id number] Completed 201805/18/2021 Mastitis associat ed w/ lactatio n;Record ed Elsewher e: No Locat ion: [facility] S ource: EHR Blood Bank Laboratory Technologist rudolph: N Yazti ce ID: 0001 Suleiman lable Time: 01:00:00 PM Joy collier, [facility] 16:40:19 Antenata l screenin g for malforma tion Completed 201805/18/2021 Encounte r for antenata l screenin g for malforma tions;Re corded Elsewher e: No Locat ion: [facility] S ource: EHR Blood Bank Laboratory Technologist rudolph: N Yazti ce ID: 0001 Suleiman lable Time: 01:00:00 PM Joy collier, [facility] 16:41:47 Rubella screenin g status [id number] Completed 201705/18/2021 Encounte r for antenata l screenin g, unspecif ied;Juvenal rded Elsewher e: No Locat ion: [facility] S ource: EHR Blood Bank Laboratory Technologist rudolph: N Yazti ce ID: 0001 Suleiman lable Time: 10:15:00 AM Joy collier [facility] 16:41:01 Gestatio n period, 11 weeks [id number] Completed 201605/18/2021 11 weeks gestatio n of pregnanc y;Record ed Elsewher e: No Locat ion: [facility] S ource: EHR Blood Bank Laboratory Technologist rudolph: N Yazti ce ID: 0001 Suleiman lable Time: 09:15:00 AM Joy Bran null, [facility] 16:41:34 Missed miscarri age [id number] Completed 201605/18/2021 Missed ;Recorde d Elsewher e: No [facility] Laboratory Technologist rudolph: N Yazti ce ID: 0001 Suleiman lable Time: 09:15:00 AM Joy Bran null, [facility] 16:40:33 Threaten ed miscarri age [id number] Completed 201605/18/2021 Threaten ed ;Recorde d Elsewher e: No Locat ion: [facility] S ource: EHR Blood Bank Laboratory Technologist rudolph: N Yazti ce ID: 0001 Suleiman lable Time: 09:45:00 AM Joy Bran null, [facility] 16:41:36 Gestatio n period, 9 weeks [id number] Completed 201705/18/2021 9 weeks gestatio n of pregnanc y;Record ed Elsewher e: No [facility] EHR Blood Bank Laboratory Technologist rudolph: N Yazti ce ID: 0001 Suleiman lable Time: 04:00:00 PM Joy Bran null, [facility] 16:41:59 Gestatio n period, 24 weeks [id number] Completed 201805/18/2021 24 weeks gestatio n of pregnanc y;Record ed Elsewher e: No [facility] S ource: EHR Blood Bank Laboratory Technologist rudolph: N Yazti ce ID: 0001 Suleiman lable Time: 11:15:00 AM Joymaximiliano collier, [facility] 16:41:09 Gestatio n period, 28 weeks [id number] Completed 201805/18/2021 28 weeks gestatio n of pregnanc y;Record ed Elsewher e: No Locat ion: [facility] S ource: EHR Blood Bank Laboratory Technologist rudolph: N Practi ce ID: 0001 Suleiman lable Time: 08:45:00 AM Joy collier, [facility] 16:41:57 Developm ental disorder Completed 201805/18/2021 Malforma tion of placenta , unspecif ied, second trimeste r;Record ed Elsewher e: No Locat ion: [facility] S ource: EHR Blood Bank Laboratory Technologist rudolph: N Practi ce ID: 0001 Suleiman lable Time: 11:15:00 AM Joy collier, [facility] 16:40:[address] Concept Completed 201605/18/2021 Encntr for state game protector exam (general ) (routine ) w/o abn findings ;Practic e ID: 0001 Joy collier, [facility] 16:41:10 Secondar y amenorrh ea [id number] Completed 201605/18/2021 Secondar y amenorrh ea;Pract ice ID: 0001 Joy collier, [facility] 16:40:30 Pregnanc y, childbir th and puerperi um finding Completed 201805/18/2021 Oth pregnanc y related conditio ns, second trimeste r;Practi ce ID: 0001 Joy collier, [facility] 16:40:51 Prematur e labor [id number] Completed 201805/18/2021 labor without delivery , second trimeste r;Practi ce ID: 0001 Joy collier, [facility] 16:41:41 Hypergly cemic disorder in pregnanc y [id number] Completed 201805/18/2021 Endo, nutritio nal and metab diseases comp preg, second tri;Prac lul ID: 0001 Joy Sotomayor nando, [facility] 16:40:41 Gestatio n period, 26 weeks [id number] Completed 201805/18/2021 26 weeks gestatio n of pregnanc y;Practi ce ID: 0001 Joy Sotomayor nando, [facility] 16:41:31 Pregnanc y-induce d hyperten bhupendra Completed 201805/18/2021 Gestatio nal htn w/o signific ant proteinu tristin, third trimeste r;Practi ce ID: 0001 Joy Sotomayor nando, [facility] 16:40:42 Non-prot einuric hyperten bhupendra of pregnanc y [id number] Completed 201805/18/2021 Gestatnl htn without signific ant protein, comp childbir th;Pract ice ID: 0001 Joy collier, [facility] 16:41:07 Lacerati on of female perineum Completed 201805/18/2021 Second degree perineal lacerati on during delivery ;Practic e ID: 0001 Joy collier, [facility] 16:40:57 Single live [id number] Completed 201805/18/2021 Single live ;Pr actice ID: 0001 Joy Sotomayor nando, [facility] 16:40:39 Gestatio n period, 37 weeks [id number] Completed 201805/18/2021 37 weeks gestatio n of pregnanc y;Practi ce ID: 0001 Joy collier, [facility] 16:41:27 Steriliz ation procedur e Completed 201805/18/2021 Encounte r for steriliz ation;Pr actice ID: 0001 Joy collier, [facility] 16:41:23 Lochia finding Completed 201805/18/2021 Encounte r for routine postpart um follow-u p;Practi ce ID: 0001 Joy collier, [facility] 16:41:26 Vaginola bial hernia Completed 201805/18/2021 Other specifie d noninfla mmatory disorder s of vagina;P ractice ID: 0001 Joy collier [facility] 16:41:05 Antenata l screenin g Completed 201705/18/2021 Encounte r for antenata l screenin g for nuchal transluc ency;Pra ctice ID: 0001 Joy collier, [facility] 16:40:59 Problem Notes None recorded. Procedures Surgical History Date Name Laterality Status Provider Name and Address Organization Details Recorded Time 12/21/19 23 ROBOTIC ASSISTED HYSTERECTOMY WITH SALPINGECTOMY (SURG) completed Brenda Zamora [facility] 12/21/2022 10:39:21 05/23/20 21 Date of Last Pap Smear completed Meche Ng [facility] 11/03/2022 10:51:47 06/08/20 20 Endometrial Biopsy completed Rhea Weston CNM [address], [place], [address], , P[facility] 06/08/2020 11:40:05 10/13/19 20 Endometrial Ablation completed Morena Del Real [facility] 11/21/2022 10:35:28 05/08/20 19 excision of cyst of vagina completed Catarinaorly Wellington [facility] 06/08/2020 11:02:26 03/08/20 19 [facility] 06/07/2020 21:39:46 05/08/20 17 Dilation and C[facility]ttage [facility] 06/07/2020 21:39:02 [facility] 11/03/2022 10:50:13 [facility] 11/03/2022 10:50:13 Endometrial Ablation completed Morena Del Real [facility] 12/13/2022 14:07:51 Imaging Results Imaging Date Name Status LastModified by Organization Details LastModified Time 11/10/2022 US, pelvis completed [email or web address] [facility] [address], [place], [address], 11/10/2022 11:47:33 11/10/2022 [email or web address] [address], [place], [address], 11/10/2022 11:47:25 11/10/2022 US, pelvis completed [email or web address] [address], [place], [address], 11/16/2022 11:10:33 Procedure Notes None recorded. Medical [...] Prescrib ed Elsewher e: No [facility] By: moses Umana r [...] Prescrib ed Elsewher e: No [facility] By: moses Umana r DateTime : 06/13/20 17 02:30:00 PM Not Available Not Available Not Available Tirosint 75 mcg capsule take 1 capsule by oral route every day 05/18 completed Prescrib ed Elsewher e: Yes Loca tion: Loi fofana [facility] odify By: [email or web address] z Encoun ter DateTime : 03/21/20 01:00:00 PM Not Available Not Available Not Available HEAD PORTER BAGGAGE-PNV-DH A 28 mg iron-1 mg-200 mg capsule take 1 capsule by oral route every day 04/01 completed Prescrib ed Elsewher e: No Locat ion: Jeri ct [facility] odify By: ciara spring DateTime : [...] Prescrib ed Elsewher e: No Locat ion: [facility] odify By: nevaeh haynes DateTime : 01/08/20 01:15:00 PM Not Available Not Available Not Available Vitals Date Recorded Body height Body mass index (BMI) Body weight Systolic blood pressure Diastolic blood pressure Provider Name and Address Organization Details Last Updated DateTime 11/21/2022 163.83 cm 31.3 kg/m2 26252.59 g 124 mm[Hg] 77 mm[Hg] [facility] 3 10:34:59 Date Recorded Body height Body mass index (BMI) Body weight Systolic blood pressure Diastolic blood pressure Provider Name and Address Organization Details Last Updated DateTime 12/13/2022 163.83 cm 31.6 kg/m2 27084.77 g 121 mm[Hg] 80 mm[Hg] [facility] 3 14:07:45 Date Recorded Body height Body mass index (BMI) Body weight Systolic blood pressure Diastolic blood pressure Provider Name and Address Organization Details Last Updated DateTime 12/27/2022 163.83 cm 30.8 kg/m2 28310.81 g 123 mm[Hg] 78 mm[Hg] Morena Del Real [facility] 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 12/27/2022 13:57:31 Do You Have An Advance Directive? No [email or web address] Information not available 05/23/2021 What Is Your Level Of Alcohol Consumption? None [email or web address] Information not available 05/23/2021 Are You Blind Or Do You Have Difficulty Seeing? No Information not available 05/23/2021 What Is Your [...] COVID-19 While That Person Was Ill? No [email or web address] Information not available 05/23/2021 Have You Been To An Area Known To Be High Risk For COVID-19? No Information not available 05/23/2021 Are You Deaf Or Do You Have Serious Difficulty Hearing? No [email or web address] Information not available 05/23/2021 What Type Of Diet Are You Following? REGULAR [email or web address] Information not available 05/23/2021 Do You Or Have You Ever Used E-cigarettes Or Vape? Never Used Electronic Cigarettes Information not available 12/27/2022 What Is The Highest Grade Or Level Of School You Have Completed Or The Highest Degree You Have Received? 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 No [email or web address] Information not available 05/23/2021 What Was The Date Of Your Most Recent Tobacco Screening? 06/08/2020 [email or web address] Information not available 12/27/2022 Do You Use Protection During Sex? No [email or web address] Information not available 05/23/2021 Do You Use Your Seat Belt Or Car Seat Routinely? Yes [email or web address] Information not available 05/23/2021 Do You Have Smoke And Carbon Monoxide Detectors In Your Home? Yes Information not available 05/23/2021 Do You Or Have You Ever Used Smokeless Tobacco? Never Used Smokeless Tobacco [email or web address] Information not available 12/27/2022 How Much Tobacco Do You Smoke? No [email or web address] Information not available 06/08/2020 Do You Feel Stressed (tense, Restless, Nervous, Or Anxious, Or Unable To Sleep At Night)? [id number] Information not available 11/03/2022 Do You Use Any Illicit Or Recreational Drugs? No Information not available 05/23/2021 Do You Use Sunscreen Routinely? No Information not available 05/23/2021 How Many Years Have You Smoked Tobacco? 0 Information not available 11/03/2022 Have You Used IV Drugs? No [email or web address] Information not available 05/23/2021 Sex: Unknown Functional Status Question Answer Note LastModified by Organizat ion Details LastModified Time Do you have difficulty walking or climbing stairs? No [email or web address] Information not available 12/27/2022 Are you able to walk? YESWOREST [email or web address] Information not available 05/23/2021 Are you able to care for yourself? Yes [email or web address] Information not available 12/27/2022 Do you have difficulty dressing or bathing? No [email or web address] Information not available 12/27/2022 What is your exercise level? Moderate Information not available 11/03/2022 Mental Status None recorded. Family History Relationship Description Onset Age of this Age Resolved Age Notes LastModified by Organization Details LastModified Time Sister Suspected cervical cancer Ovaria n cancer [email or web address] Not available 12/27/2022 13:57:30 Mother Diabetes mellitus [email or web address] Not available 2019 10:15:09 Mother Hypertensive disorder [email or web address] Not available 2022 10:28:49 Mother Disorder of [...] SNOMED-CT Code Diagnosis ICD10 Code Diagnosis Note [id number] JAMILAH Downs[facility] [address] [address] 04/08/2020 10:08:44 04/08/2020 10:57:36 Abnormal uterine bleeding 0318260522 9100 N93.9 Patient is here today with concerns of recently ruptured cyst via CT scan from last . Has Hx of ovarian cysts. [place] sx's. Went to PCP who ordered CT [...] counseling and review of plan of care. [id number] Evelia Rust [facility] [address],[place] [address] 05/05/2020 09:23:37 05/05/2020 10:19:18 Cyst of left ovary [id number] 7989852 N83.202 TVUS was reviewed today. She is [...] counseling and review of plan of care. [id number] Lilly Rice [facility] [address],[facility] [place] [address] 05/05/2020 09:23:59 05/05/2020 10:09:53 Pain in pelvis 83055249 R10.2 N83.291 [id number] Carlton Guallpa MD [facility] [address],[facility] [place] [address] 05/19/2020 17:14:54 05/19/2020 18:25:50 Cyst of ovary 96924797 N83.209 Menorrhagia 485193240 N9 2.0 this patient is a 29-year-ol [...] other medical treatment options including tranexamic acid. [id number] Rhea Weston CNM [facility] [address],[place] [address] 06/08/2020 10:34:03 06/08/2020 11:55:21 Menorrhagia 120753616 N92.0 plan for hysterosco py and ablation at [place] reviewed procedure and handout given [id number] Carlton Guallpa MD [facility] [address],[place] [address] 07/21/2020 16:43:47 07/21/2020 18:18:10 Menorrhagia 705674463 N92.0 this patient is a 29-year-ol d female presents for preoperati ve care. She had an ultrasound that we reviewed. It showed a normal uterus. We have agreed to perform endometria l ablation. She understand s the procedure and the risk. She understand s the risks, benefits, and alternativ es. She has completed the informed consent process and is ready to proceed. [id number] Lilly Rice [facility] [address],[place] [address] 07/21/2020 16:43:47 07/21/2020 18:18:10 Irregular intermenstrual bleeding 04289981 N92.1 [id number] Carlton Guallpa MD [facility] [address],[place] [address] 07/28/2020 09:45:10 07/28/2020 09:46:21 [id number] Carlton Guallpa MD [facility] [address],[place] [address] 08/03/2020 10:14:14 08/03/2020 14:05:22 Postoperative care 058488144 Z48.89 this patient is a 29-year-ol d female presents forpostopf ollow-up. She is 1 weekpostop from a tubal ligation and endometria l ablation. She is recovering normally. She has no complaints . She has some watery vaginal discharge that resolved. She denies any foul-smell ing vaginal discharge. She denies any nausea, vomiting, fever, chills. She will follow up as needed. [id number] Maria E Garcia [facility] [address],[place] [address] 05/23/2021 13:57:08 05/23/2021 14:33:55 Gynecologic examination 96697240 Z01.419 Z11.51 Take Calcium with Vitamin D [...] paper copy of today's plan if desired. [id number] Evelia Rust [facility] [address] [address] 11/03/2022 10:28:44 11/06/2022 16:21:54 Gynecologic examination 67110878 Z01.419 Take Calcium with Vitamin D 1200mg [...] Screen naRoutine Labs orderedMam mo na Menorrhagia 889887916 N9 2.0 Update USUpdate lab work??MD consult since has had previous ablation for this issue which has improved but still not ideal & disrupting her quality of life.Will reach out with results since likely will need MD consult. [id number] Marie De Leon [facility] [address],[place] [address] 11/10/2022 10:52:52 11/10/2022 11:43:37 Menorrhagia 593884391 N92.0 this patient is a 29-year-ol d female presents for preoperati ve care. She had an ultrasound that we reviewed. It showed a normal uterus. We have agreed to perform endometria l ablation. She understand s the procedure and the risk. She understand s the risks, benefits, and alternativ es. She has completed the informed consent process and is ready to proceed. [id number] Carlton Guallpa MD [facility] [address] [address] 11/21/2022 10:01:10 11/21/2022 11:22:19 Menorrhagia 714378208 N92.0 Dysmenorrhea 395087217 N 94.6 32-year-ol d female with recurrent [...] made a decision today to perform surgery. [id number] Carlton Guallpa MD [facility] [address] [address] 12/13/2022 13:58:21 12/14/2022 12:48:10 Menorrhagia 222613819 N92.0 Dysmenorrhea 816548300 N 94.6 this patient is a 32-year-ol d female who presents for preoperati ve care. She has severe menorrhagi a and dysmenorrh ea. We have agreed to perform total laparoscop ic hysterecto my and bilateral salpingect aruna. She has failed endometria l ablation. She understand s risks, benefits, and alternativ es. She has completed the informed consent process is ready to proceed. [id number] Carlton Guallpa MD [facility] [address] [address] 12/27/2022 13:56:33 12/27/2022 17:06:40 Urinary symptoms 058559347 R39.9 Postoperative care 73869 9007 Z48.89 this patient is a 29-year-ol [...] Escobedo Member ID Guarantor Name 11/10/2022 1 [facility] ([facility] [id number] [facility] [id number] [address] [place] [address] 11/21/2022 1 [facility] [id number] [facility] [id number] [address] [place] [address] 12/13/2022 1 [facility] [id number] [facility] [id number] [address] [place] [address] 12/27/2022 1 [facility] [id number] [facility] [id number] [address] [place] [address] Notes Date Note Type Note Provider Name [...] bilateral salpingectomy. Spent more than 40 minutes [id number]. We discussed the procedure in detail. We discussed her options in detail. We discussed revisiting medical and procedural treatments. Talked about the risk of the surgery in detail. We made a decision today to perform surgery. Carlton Guallpa MD [address], [place], [address], , P.C[facility] 11/21/2022 11:22:06 12/13/2022 text/html This patient [...] infection. Carlton Guallpa MD [address], [place], [address], , P.C. 12/14/2022 00:14:31 12/27/2022 text/html Patient is a 32-year-old female presents for postop follow-up. She is postop 1 week for Mom a hysterectomy and salpingectomy. She is recovering normally. She was doing very very well. Her incisions are clean dry and intact. She has no complaints. She will follow-up as needed. Carlton Guallpa MD [address], [place], [address], , P[facility] 12/27/2022 16:06:06 OBGyn Episode Ob Episode Information Episode Created Date Number of Fetuses Patient Bloodtype Patient rh Status Prepregnancy Weight lbs Domestic Partner Domestic Partner Phone Father Name Dining Car Hop Status 04/08/20 20 1 CLOSED Fetus Data [...] Domestic Partner Domestic Partner Phone Father Name Dining Car Hop Status 04/08/20 20 1 CLOSED Fetus Data [...] Domestic Partner Domestic Partner Phone Father Name Dining Car Hop Status 04/08/20 20 1 CLOSED Fetus Data [...] Domestic Partner Domestic Partner Phone Father Name Dining Car Hop Status 06/07/20 20 1 CLOSED Fetus Data [...]
--- NOTE | 2024-12-13 08:56 | ECG_ITS ---
Test Date: 2024-12-13 09:04:14 Measurements Intervals [place] Rate: 60 P: 52 ND: 127 QRS: 39 QRSD: 98 T: 43 QT: 416 QTc: 417 Interpretive Statements SINUS RHYTHM WITH SINUS ARRHYTHMIA WITHIN NORMAL LIMITS No previous ECG available for comparison Electronically Signed On 12-13-2024 15:57:22 [employer] by Edgar Aranda M.D.
[2024-12-13 09:02] VITALS: BP 130/79; PULSE 73; RESP 16; TEMP 36.7; O2SAT 100
[2024-12-13 09:06] VITALS: PULSE 73
[2024-12-13 09:34] LABS: Basophils Percent Auto 0.4 % (0.2-1.2); Eosinophils Absolute Auto 0.1 K/mm3 (0-0.3); Eosinophils Percent Auto 2.1 % (0-4.4); Hematocrit 40.5 % (37.0-47.0); Hemoglobin 13.8 g/dL (12.0-15.0); Immature Granulocyte Absolute 0.02 K/mm3 (0.00-0.031); Immature Granulocyte Percent A 0.4 % (0-0.5); Lymphocytes Absolute Auto 1.41 K/mm3 (0.9-3.2); Lymphocytes Percent Auto 27.1 % (18.3-44.2); Mean Corpuscular HGB Conc 34.1 g/dl (32-36); Mean Corpuscular Hemoglobin 29.5 pg (26-34); Mean Corpuscular Volume 86.5 fl (80-100); Monocytes Absolute Auto 0.3 K/mm3 (0.1-0.6); Monocytes Percent Auto 5.8 % (2.6-8.5); Neutrophils Absolute Auto 3.4 K/mm3 (1.3-6.7); Neutrophils Percent Auto 64.2 % (45.5-73.1); Platelet Count Result 209 k/mm3 (150-375); Red Blood Count 4.68 M/mm3 (4.2-5.4); Red Cell Distribution Width 12.2 % (11.5-14.5); White Blood Count 5.2 K/mm3 (4.5-10.0)
[2024-12-13 09:45] LABS: Partial Thromboplastin Time 27.1 Seconds (22.3-36.8); Prothrombin Time 13.5 Seconds (11.1-14.7)
[2024-12-13 09:51] LABS: Alanine Aminotransferase 19 U/L (6-35); Albumin Level 4.6 g/dL (3.5-5.1); Alkaline Phosphatase 55 U/L (38-126); Anion Gap 8 mmol/L (4-12); Aspartate Amino Transferase 24 U/L (14-36); Bilirubin,Total 0.7 mg/dL (0.2-1.3); Blood Urea Nitrogen 10 mg/dL (7-17); Calcium 9.1 mg/dL (8.4-10.2); Carbon Dioxide 27 mmol/L (22-30); Chloride 104 mmol/L (98-107); Estimated CRCL calculation 126 ml/min; Estimated Glomerular Filt Rate > 60; Glucose 97 mg/dL (65-110); Lipase 40 U/L (23-300); Potassium 4.3 mmol/L (3.4-5.0); Sodium 139 mmol/L (137-145)
[2024-12-13 09:57] VITALS: BP 148/77; PULSE 59; RESP 18; O2SAT 100
[2024-12-13 10:01] LABS: Troponin I < 0.012 ng/mL (0.000-0.034)
--- OUTSIDE RECORDS SUMMARY | 2024-12-13 10:07 | XMS_ITS | Encounter Summary ---
Author Organization [facility] Address [address] [place] [address] Care Team Providers Care Net Developer Contract Name Role Phone Zuleima Hawley NP Primary Care Provider [phone] Encounter Details Date Type Department Care Team (Late Contact Info) Description 10/02/2024 Instacovert Message Enc [facility] Family & Internal Medicine [facility] [id number] [place] [address] Zule[place] Haw[place] [id number] [place] [address] [place] [address] Weight loss question Social History Tobacco [...] AM CDT Legal Sex Female 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 [place] [address] documented as of this encounter Visit Diagnoses Not on filedocumented in this encounter Care Teams Net Developer Contract Relationship Specialty Start [place] [address] [place] [address] PCP - General Nurse Practitioner Family 07/31/22 documented as of this encounter
--- OUTSIDE RECORDS SUMMARY | 2024-12-13 10:07 | XMS_ITS | Clinical Summary ---
Author Organization [facility] Address [address] [place] [address] Care Team Providers Care Supervisor Carpenters Name Role Phone Zuleima Hawley NP Primary Care Provider + [phone] Allergies No known active allergies Medications albuterol [...] Mastitis associated w/ ;Recorded Elsewhere: No Location: [facility] Source: EHR Chronic: N Practice ID: [id number] Billable Time: 01:00:00 PM Non-proteinuric hypertension of (HHS/H CC) 03/22/2019 Overview (10/07/2024): Gestatnl htn without significant protein, comp childbirth;Practice ID: [id number] Hyperglycemia during ([facility]/HCC) 019 Overview (10/07/2024): Endo, nutritional and metab diseases comp preg, second tri;Practice ID: [id number] Hemorrhage affecting ([facility]/HCC) 018 Overview (10/07/2024): Other hemorrhage in early ;Recorded Elsewhere: No Location: [facility] Source: EHR Chronic: N Practice ID: [id number] Billable Time: 04:00:00 PM Missed ([facility]/HCC) 06/06/2017 Overview (10/07/2024): Missed ;Recorded Elsewhere: No Location: [facility] Source: EHR Chronic: N Practice ID: [id number] Billable Time: 09:15:00 AM History of tobacco use 03/13/2017 Overweight 03/13/2017 Encounters Date Type Department Care Team Description 11/05/2024 7:20 AM BATCH AND FURNACE OPERATOR Office Visit [facility] Family & Internal [address] [address] Zuleima Hawley NP Follow Up (On phentermine) 11/05/2024 Travel 11/03/2024 Scan [employer] SR[facility] Scanned, [facility] 10/07/2024 12:16 PM BATCH AND FURNACE OPERATOR - 10/07/2024 11:59 PM BATCH AND FURNACE OPERATOR Hospital Encounter [facility] [address] [place] [address] Zuleima Hawley NP Discharge Disposition: Home or Self Care (Routine Discharge) 10/07/2024 7:40 AM BATCH AND FURNACE OPERATOR Laboratory Only [facility] Family & Internal Medicine [address] [phone] Zuleima Hawley NP 10/07/2024 7:00 AM BATCH AND FURNACE OPERATOR Office Visit [facility] Internal [address] [phone] Zuleima Hawley NP Thyroid (Follow up check on my thyroid and weight) 10/07/2024 Travel 10/02/2024 MyChart Message Enc [facility] Internal [address] [phone] Zuleima Hawley NP Weight loss question from [...] AM CDT Legal Sex Female 1:33 PM BATCH AND FURNACE OPERATOR Gender Identity Female 08/05/2022 10:21 AM CDT Sexual Orientation Straight 08/08/2022 9: 58 AM CDT Last Filed Vital Signs Vital Sign Reading Time Taken Comments Blood Pressure 124/89 11/05/2024 7:34 AM BATCH AND FURNACE OPERATOR Pulse 90 11/05/2024 7:34 AM BATCH AND FURNACE OPERATOR Temperature 36.9 C (98.5 F) 11/05/2024 7:34 AM BATCH AND FURNACE OPERATOR Respiratory Rate 20 11/05/2024 7:34 AM BATCH AND FURNACE OPERATOR Oxygen Saturation 100% 11/05/2024 7:34 AM BATCH AND FURNACE OPERATOR Inhaled Oxygen Concentration - - Weight 85 kg (187 lb 6.4 oz) 11/05/2024 7:34 AM BATCH AND FURNACE OPERATOR Height 162.6 cm (5' 4 ) 11/05/2024 7:34 AM BATCH AND FURNACE OPERATOR Body Mass Index 32.17 11/05/2024 7:34 AM BATCH AND FURNACE OPERATOR Plan of Treatment Upcoming Encounters Date Type Department Care Team (Late st Contact Info) Description 02/02/2025 3:40 PM CDT Office Visit [facility] Family & Internal Medicine - [place] [address] [place] [address] [place] [phone] [address] Health Maintenance Due Date Last [...] 01/29/1992 Hepatitis C Completed 02/14/2023 PHQ-2 (Physician [place]) Completed 11/05/2024 HPV Vaccines Aged Out No [...] VENOUS BLOOD VENIPUNCTURE Routine 10/07/2024 7:43 AM BATCH AND FURNACE OPERATOR Obesity (BMI 30-39.9) Hypothyroidism, unspecified type TSH W/REFLEX Routine 10/07/2024 7:37 AM BATCH AND FURNACE OPERATOR Obesity (BMI 30-39.9) Hypothyroidism, unspecified type CBC W/DIFF AUTOMATED Routine 10/07/2024 7:37 AM BATCH AND FURNACE OPERATOR Obesity (BMI 30-39.9) Hypothyroidism, unspecified type COMPREHENSIVE METABOLIC PANEL Routine 10/07/2024 7:37 AM BATCH AND FURNACE OPERATOR Obesity (BMI 30-39.9) Hypothyroidism, unspecified type HEPATITIS C ANTIBODY Routine 02/14/2023 7:29 AM CDT Encounter for hepatitis C screening test for low risk patient from Last 3 Months or Most Recently Relevant to Health Maintenance Results * TSH W/REFLEX (10/07/2024 7:37 AM BATCH AND FURNACE OPERATOR) TSH 0.825 0.358 - 3.74 uIU/ML 10/07/2024 1:19 PM BATCH AND FURNACE OPERATOR [facility] Comment: HIGH DOSES OF BIOTIN MAY INTERFERE WITH THIS TEST RESULT. CORRELATION TO CLINICAL HISTORY AND PRESENTATION RECOMMENDED. FREE T4 NOT INDICATED 10/07/2024 7:37 AM BATCH AND FURNACE OPERATOR us Zuleima Hawley NP LABORATORY Final Result [facility] [address] [place] [address], [place] [phone] * (ABNORMAL) COMPREHENSIVE METABOLIC PANEL (10/07/2024 7:37 AM BATCH AND FURNACE OPERATOR) GLUCOSE 83 70 - 99 MG/DL 10/07/2024 1:19 PM BATCH AND FURNACE OPERATOR [facility] BUN 13 7 - 18 MG/DL 10/07/2024 1:19 PM [facility] CREATININE S/P/B 0.71 0.55 - 1.02 MG/DL 10/07/2024 1:19 PM [facility] SODIUM S/P/B 143 136 - 145 MMOL/L 10/07/2024 1:19 PM [facility] POTASSIUM S/P/B 4.6 3.5 - 5.1 MMOL/L 10/07/2024 1:19 PM [facility] CHLORIDE S/P/B 105 100 - 108 MMOL/L 10/07/2024 1:19 PM [facility] CO2 30.0 21 - 32 MMOL/L 10/07/2024 1:19 PM [facility] CALCIUM S/P/B 9.2 8.5 - 10.1 MG/DL 10/07/2024 1:19 PM [facility] BILIRUBIN TOTAL S/P/B 0.6 0.2 - 1.2 MG/DL 10/07/2024 1:19 PM [facility] TOTAL PROTEIN S/P/B 7.4 6.4 - 8.2 G/DL 10/07/2024 1:19 PM [facility] ALBUMIN S/P/B 4.1 3.4 - 5.0 G/DL 10/07/2024 1:19 PM [facility] AST 14(L) 15 - 37 U/L 10/07/2024 1:19 PM [facility] ALT 32 14 - 55 U/L 10/07/2024 1:19 PM [facility] ALKALINE PHOSPHATASE S/P/B 66 50 - 136 U/L 10/07/2024 1:19 PM [facility] ANION GAP 8.0 5 - 15 MMOL/L 10/07/2024 1:19 PM [facility] BUN CREATININE RATIO 18.3 6 - 26 10/07/2024 1:19 PM [facility] A/G RATIO 1.2 1.0 - 2.0 RATIO 10/07/2024 1:19 PM [facility] GFR ESTIMATE >90 >90 ML/MIN/1.7 3 M2 10/07/2024 1:19 PM [facility] Comment: NOTE: eGFR is not calculated for patients <18 years of age. This is an estimated GFR calculation using the new CKD EPI creatinine equation without race and so does not require a correction factor for race. This estimated GFR should not be used for calculating drug doses. 10/07/2024 7:37 AM BATCH AND FURNACE OPERATOR us Zuleima Hawley NP LABORATORY Final Result [facility] [address] [place] [address], * (ABNORMAL) CBC W/DIFF AUTOMATED (10/07/2024 7:37 AM BATCH AND FURNACE OPERATOR) WBC 7.17 4.4 - 11.0 x10'3/uL 10/07/2024 12:33 PM [facility] RBC 4.60 4.50 - 5.10 x10'6/uL 10/07/2024 12:33 PM [facility] HGB 13.5 12.3 - 15.3 G/DL 10/07/2024 12:33 PM [facility] HCT 39.6 35.9 - 44.6 % 10/07/2024 12:33 PM [facility] MCV 86.1 80.0 - 96.0 FL 10/07/2024 12:33 PM [facility] MCH 29.3 25.3 - 30.9 PG 10/07/2024 12:33 PM [facility] MCHC 34.1 31.0 - 34.1 G/DL 10/07/2024 12:33 PM [facility] RDW 12.3(L) 12.4 - 15.1 % 10/07/2024 12:33 PM [facility] PLT 246 151 - 353 x10'3/uL 10/07/2024 12:33 PM [facility] MPV 9.3(L) 9.6 - 12.0 FL 10/07/2024 12:33 PM [facility] RBC MORPHOLOGY NORMAL 10/07/2024 12:33 PM [facility] PLT MORPH. NORMAL 10/07/2024 12:33 PM [facility] WBC MORPHOLOGY NORMAL 10/07/2024 12:33 PM [facility] LYMPHOCYTES % 28.9 15.8 - 45.0 % 10/07/2024 12:33 PM [facility] NEUTROPHILS % 62.5 42.1 - 71.9 % 10/07/2024 12:33 PM [facility] MONOCYTES % 6.3 5.7 - 12.5 % 10/07/2024 12:33 PM [facility] EOSINOPHILS 1.4 0.0 - 5.6 % 10/07/2024 12:33 PM [facility] BASOPHILS 0.3 0.0 - 1.3 % 10/07/2024 12:33 PM [facility] ABS. NEUTROPHILS 4.49 1.40 - 6.00 x10'3/uL 10/07/2024 12:33 PM [facility] IMMATURE GRANS % 0.6(H) 0.0 - 0.5 % 10/07/2024 12:33 PM [facility] ABS. LYMPHOCYTES 2.07 0.80 - 4.70 x10'3/uL 10/07/2024 12:33 PM BATCH AND FURNACE OPERATOR [facility] 10/07/2024 7:37 AM BATCH AND FURNACE OPERATOR Zuleima Hawley NP LABORATORY Final Result Performing Organization Address City/[facility]/ZIP Co de Phone Number [facility] [address] [place] [address], [place] [phone] * HEPATITIS C AB ([facility] ONLY) (02/14/2023 7:29 AM CDT) HEPATITIS C AB NON-REACTI VE NON-REACTI VE 02/14/2023 4:12 PM CDT [facility] 02/14/2023 7:29 AM CDT Zuleima Hawley MEDICAL PATHOLOGIST LABORATORY Final Result Performing Organization Address City/[facility] Co de Phone Number [facility] [address] [place] [address], [place] [phone] from Last 3 Months or Most Recently Relevant to Health Maintenance Insurance Care Teams Supervisor Carpenters Relationship Specialty [place] [address] [place] [address] PCP - General Nurse Practitioner Family 07/31/22
--- OUTSIDE RECORDS SUMMARY | 2024-12-13 10:07 | XMS_ITS | Encounter Summary ---
Author Organization [facility] Address [address] [place] [address] Care Team Providers Care Pedodontist Name Role Phone Zuleima Hawley NP Primary Care Provider [phone] Encounter Details Date Type Department Care Team ([facility] Contact Info) Description 08/25/2022 Axial Exchangehart Message Enc [facility] Family & Internal [address] [phone] Zuleima Hawley NP [address] [place] [address] [place] [address] Lab results Social History Tobacco Use Types Packs/Day Years Used Date Smoking Tobacco: Never Smokeless Tobacco: Never Alcohol Use Standard Drinks/Week Comments Never 0 (1 standard drink = 0.6 oz pur e alcohol) Comments No Sex and Gender Information Value Date Recorded Sex Assigned at Female 08/08/2022 9:58 AM CDT Legal Sex Female 1:33 PM QC ANALYST Gender Identity Female 08/05/2022 10:21 AM CDT Sexual Orientation Straight 08/08/2022 9: 58 AM CDT COVID-19 Exposure Response Date Recorded In the last 10 days, have yo u been in contact with someone who was confirmed or suspected to have Coronavirus/COVID-19? No / Unsure 08/08/2022 9:44 AM CDT documented as of this encounter Plan of Treatment Upcoming Encounters Date Type Department Care Team ([facility] Contact Info) Description 02/02/2025 3:40 PM CDT Office Visit [facility] Family & Internal [address] [place] [phone] [place] [address] [facility] [address] [place] [id number] documented as of this encounter Visit Diagnoses Not on filedocumented in this encounter Additional Health Concerns Infection Onset Date Last Indicated Resolved Time COVID-19 Rule Out 12/11/2023 12/11/2023 12/11/2023 4:11 PM QC ANALYST Influenza - Seasonal 12/11/2023 12/11/2023 024 12:33 AM CDT documented as of this encounter Care Teams Pedodontist Relationship Specialty Start [place] [address] [facility] [address] [place] [address] PCP - General Nurse Practitioner Family 07/31/22 documented as of this encounter
[2024-12-13 10:16] LABS: BEDSIDEPREGUCG Negative (Negative)
[2024-12-13 10:19] LABS: Add Urine Microscopic? NO; Appearance Urine Clear (Clear); Bilirubin Urine Negative (Negative); Blood Urine Negative (Negative); Color Urine Yellow (Yellow); Glucose Urine UA Negative (Negative); Ketones Urine Negative (Negative); Leukocyte Esterase Ur Negative LEU/UL (Negative); Nitrate Urine Negative (Negative); Protein Urine Negative (Negative); Specific Grav Ur 1.004 (1.001-1.035); Urobilinogen Urine 0.2 mg/dL (<2.0); pH Urine 7.5 (5.0-9.0)
--- NOTE | 2024-12-13 11:43 | ED.CHESTPAIN ---
HPI - Chest Pain General Chief Complaint: Chest Pain Stated Complaint: chest pain, lower abd pain Time Seen by Provider: 12/13/24 10:01 Source: patient and RN notes reviewed Mode of arrival: ambulatory Limitations: no limitations History of Present Illness HPI narrative: This is a 34 year old female who presents for evaluation of chest pain. She states took phentermine at 5 am and she drank coffee at 630 am. She states after drinking her coffee she felt brief minute episode of left chest pain and left lower abdominal pain. She states this pain resolved but then she developed nausea and felt lightheaded. She states she called 911 and EMS came to check her out. She reports her vitals and eKG were fine so she declined ambulance . She came to ER to get chest out. She states she normally waits 3-4 hours after taking phentermine before taking caffeine. She denies history of heart disease, history of PE, history of recent procedure or travel. She denies family history of heart disease. She denies any symptoms at this time. Related Data Home Medications ?Medication ?Instructions ?Recorded ?Confirmed ?Last Taken ?Type phentermine 15 mg capsule mg 11/03/24 Unknown History Allergies Allergy/AdvReac Type Severity Reaction Status Date / Time No Known Allergies Allergy Verified 12/13/24 08:54 Review of Systems Constitutional: Constitutional: Denies chills, Denies fatigue and Denies fever(s) Cardiovascular: Cardiovascular: Reports chest pain, Denies rapid heart rate and Denies radiating jaw, neck or arm pain Respiratory: Respiratory: Denies chest congestion, Denies cough and Denies dyspnea Gastrointestinal: Gastrointestinal: Denies heartburn and Denies diarrhea PMF Past Medical History Medical History Ruptured ovarian cyst Periumbilical pain Skin rash Obesity (BMI 30.0-34.9) Abdominal pain Hypothyroidism Surgical History Surgical History History of tubal ligation 6-17-18 Family History Family History Mother Family history of hypothyroidism Family history of type 2 diabetes mellitus Hypertension Father Hypertension Social History Social History Smoking status: Never smoker Alcohol intake: never Substance use: never Substance use type: does not use Living arrangements: with family Additional living arrangements comments: . 2 Children. 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 Gender identity (if verbalized by the patient): Female Spiritual care concerns: No Exam Const: General: no acute distress and alert Nutritional Appearance: well nourished Orientation/consciousness: patient oriented x3 HENMT: Head: normal to inspection Eyes: EOM: EOMs intact bilaterally Chest: Chest palpation & inspection: normal inspection of the chest and no tenderness Resp: Effort & Inspection: normal respiratory effort Auscultation: clear to auscultation bilaterally Cardio: Rate: regular rate Rhythm: regular rhythm Heart sounds: no murmurs GI: GI Palp: Yes Soft to palpation, No Tenderness to palpation present (GI), No Guarding due to palpation present (GI) and No Rigid due to palpation Auscultation: normal bowel sounds Back/Spine/Pelvis: Back: no CVA tenderness Skin: General skin exam: normal color Rashes: no rashes Wounds: no wounds Neuro: General: patient oriented x3 and moves all extremities Cranial nerves: Yes Nystagmus not present Extrem: General: normal to inspection Psych: Mental Status: mental status grossly normal Affect: normal affect Attitude: cooperative Course Reevaluation(s) Reevaluation #1: Patient has no further questions. She has not complaints. STable for discharge home. Date: 12/13/24 Time: 12:40 Vital Signs Vital signs: Vital Signs Temperature 98.0 F 12/13/24 09:02 Pulse Rate 73 12/13/24 09:02 Respiratory Rate 16 12/13/24 09:02 Blood Pressure 130/79 12/13/24 09:02 Pulse Oximetry 100 12/13/24 09:02 Oxygen Delivery Room Air 12/13/24 09:02 Temperature 98.0 F 12/13/24 09:02 Pulse Rate 73 12/13/24 13:10 Respiratory Rate 16 12/13/24 13:10 Blood Pressure 113/82 12/13/24 13:10 Pulse Oximetry 100 12/13/24 13:10 Oxygen Delivery Room Air 12/13/24 09:02 MDM - Chest Pain MDM Narrative Medical decision making narrative: PAtient presents with atypical chest pain with low risk. Heart score 0. PERC negative. She was likely lightheaded due to vagal episode. PAtient has negative troponin x 2 so can follow up with PCP Differential Diagnosis Differential diagnosis: Likely atypical chest pain, costochondritis, chest pain and other (arrhythmia, hypertension, PE low risk) Medical Records Data Attestation: I reviewed the patient's medical records. Lab Data Attestation: I reviewed the patient's lab results. 12/13/24 09:26 12/13/24 09:26 Labs: Lab Results 12/13/24 12/13/24 12/13/24 Range/Units 09:26 10:12 10:14 WBC 5.2 (4.5-10.0) K/mm3 RBC 4.68 (4.2-5.4) M/mm3 Hgb 13.8 (12.0-15.0) g/dL Hct 40.5 (37.0-47.0) % MCV 86.5 (80-100) fl MCH 29.5 (26-34) pg MCHC 34.1 (32-36) g/dl RDW 12.2 (11.5-14.5) % Plt Count 209 (150-375) k/mm3 MPV 9.0 (7.4-10.4) fl Immature Gran % (Auto) 0.4 (0-0.5) % Neut % (Auto) 64.2 (45.5-73.1) % Lymph % (Auto) 27.1 (18.3-44.2) % [place] % (Auto) 5.8 (2.6-8.5) % Eos % (Auto) 2.1 (0-4.4) % Baso % (Auto) 0.4 (0.2-1.2) % Lymph # (Auto) 1.41 (0.9-3.2) K/mm3 [place] # (Auto) 0.3 (0.1-0.6) K/mm3 Eos # (Auto) 0.1 (0-0.3) K/mm3 Baso # (Auto) 0.0 (0.0-0.1) K/mm3 Abs Immat Gran (auto) 0.02 (0.00-0.031) K/mm3 Absolute Neuts (auto) 3.4 (1.3-6.7) K/mm3 Absolute Nucleated RBC 0.000 (0.0-0.012) K/mm3 Nucleated RBC % 0.0 (0.0-0.2) % PT 13.5 (11.1-14.7) Seconds INR 1.0 APTT 27.1 (22.3-36.8) Seconds Sodium 139 (137-145) mmol/L Potassium 4.3 (3.4-5.0) mmol/L Chloride 104 (98-107) mmol/L Carbon Dioxide 27 (22-30) mmol/L Anion Gap 8 (4-12) mmol/L BUN 10 (7-17) mg/dL Creatinine 0.56 L (0.7-1.0) mg/dL Estim Creat Clear Calc 126 ml/min Estimated GFR > 60 (59 - ) Glucose 97 (65-110) mg/dL Calcium 9.1 (8.4-10.2) mg/dL Total Bilirubin 0.7 (0.2-1.3) mg/dL AST 24 (14-36) U/L ALT 19 (6-35) U/L Alkaline Phosphatase 55 (38-126) U/L Troponin I < 0.012 (0.000-0.034) ng/mL Total Protein 8.0 (6.3-8.2) g/dL Albumin 4.6 (3.5-5.1) g/dL Lipase 40 (23-300) U/L TSH (Reflex) 0.280 L (0.465-4.68) uIU/mL Free T4 1.70 (0.78-2.19) ng/dL Total T3 1.80 H (0.97-1.69) NG/ML Urine Color Yellow (Yellow) Urine Appearance Clear (Clear) Urine pH 7.5 (5.0-9.0) Ur Specific [place] 1.004 (1.001-1.035) Urine Protein Negative (Negative) mg/dL Urine Glucose (UA) Negative (Negative) mg/dL Urine Ketones Negative (Negative) mg/dL Ur Blood (Man) Negative (Negative) Urine Nitrate Negative (Negative) Urine Bilirubin Negative (Negative) Urine Urobilinogen 0.2 (<2.0) mg/dL Leukocyte Esterase Rfl Negative (Negative) [place]/UL POC Urine HCG, Qual Negative (Negative) 12/13/24 Range/Units 11:49 WBC (4.5-10.0) K/mm3 RBC (4.2-5.4) M/mm3 Hgb (12.0-15.0) g/dL Hct (37.0-47.0) % MCV (80-100) fl MCH (26-34) pg MCHC (32-36) g/dl RDW (11.5-14.5) % Plt Count (150-375) k/mm3 MPV (7.4-10.4) fl Immature Gran % (Auto) (0-0.5) % Neut % (Auto) (45.5-73.1) % Lymph % (Auto) (18.3-44.2) % [place] % (Auto) (2.6-8.5) % Eos % (Auto) (0-4.4) % Baso % (Auto) (0.2-1.2) % Lymph # (Auto) (0.9-3.2) K/mm3 [place] # (Auto) (0.1-0.6) K/mm3 Eos # (Auto) (0-0.3) K/mm3 Baso # (Auto) (0.0-0.1) K/mm3 Abs Immat Gran (auto) (0.00-0.031) K/mm3 Absolute Neuts (auto) (1.3-6.7) K/mm3 Absolute Nucleated RBC (0.0-0.012) K/mm3 Nucleated RBC % (0.0-0.2) % PT (11.1-14.7) Seconds INR APTT (22.3-36.8) Seconds Sodium (137-145) mmol/L Potassium (3.4-5.0) mmol/L Chloride (98-107) mmol/L Carbon Dioxide (22-30) mmol/L Anion Gap (4-12) mmol/L BUN (7-17) mg/dL Creatinine (0.7-1.0) mg/dL Estim Creat Clear Calc ml/min Estimated GFR (59 - ) Glucose (65-110) mg/dL Calcium (8.4-10.2) mg/dL Total Bilirubin (0.2-1.3) mg/dL AST (14-36) U/L ALT (6-35) U/L Alkaline Phosphatase (38-126) U/L Troponin I < 0.012 (0.000-0.034) ng/mL Total Protein (6.3-8.2) g/dL Albumin (3.5-5.1) g/dL Lipase (23-300) U/L TSH (Reflex) (0.465-4.68) uIU/mL Free T4 (0.78-2.19) ng/dL Total T3 (0.97-1.69) NG/ML Urine Color (Yellow) Urine Appearance (Clear) Urine pH (5.0-9.0) Ur Specific Harmony (1.001-1.035) Urine Protein (Negative) mg/dL Urine Glucose (UA) (Negative) mg/dL Urine Ketones (Negative) mg/dL Ur Blood (Man) (Negative) Urine Nitrate (Negative) Urine Bilirubin (Negative) Urine Urobilinogen (<2.0) mg/dL Leukocyte Esterase Rfl (Negative) CAMERON/UL POC Urine HCG, Qual (Negative) Imaging Data Radiologist's impression: ITS Impressions Chest X-Ray 12/13/24 09:25 IMPRESSION: 1. No acute cardiopulmonary disease. ECG Data EKG #1: Attestation: I personally reviewed and interpreted this ECG as follows: ECG completion date: 12/13/24 ECG completion time: 11:52 Prior ECG tracings: available for review EKG Interpretation: bradycardia (58), sinus rhythm and no acute changes Discharge Plan Discharge Clinical Impression: Atypical chest pain Patient Disposition: Home, Self-Care Condition: Stable Instructions: Antibiotic Form, Chest Pain (ED) Additional Instructions: Today your evaluation has been unremarkable. Call your primary care provider on Sunday to arrange follow up appointment. Patient Language: Trinidadian Prescriptions: No Action phentermine 15 mg capsule azithromycin 250 mg tablet See Rx Instructions .ROUTE .COMPLEX Qty: 6 0RF Rx Instructions: For 250 mg dose pack: take 500 mg today (day 1), then 250 mg for 4 days (days 2-5) prednisone 50 mg tablet 50 mg PO DAILY Qty: 5 0RF albuterol sulfate [Ventolin HFA] 90 mcg/actuation HFA aerosol inhaler 2 puff inhalation QID PRN (Reason: shortness of breath or wheezing) Qty: 8.5 0RF levothyroxine 88 mcg tablet See Rx Instructions .ROUTE .COMPLEX Qty: 90 0RF Dose Instruction: TAKE 1 TABLET BY MOUTH DAILY Rx Instructions: TAKE 1 TABLET BY MOUTH DAILY Follow-up/Referrals: Marleen,Zuleima Henson APRN [Primary Care Provider] - Quality HEART score for chest pain patients History: slightly suspicious ECG: normal Age: < or = to 45 years Risk factors: no risk factors known Troponin: < or = to 1x normal limit Heart score: 0
--- NOTE | 2024-12-13 11:48 | ECG_ITS ---
Test Date: 2024-12-13 11:52:48 Measurements Intervals [place] Rate: 58 P: 12 MT: 108 QRS: 54 QRSD: 98 T: 53 QT: 437 QTc: 430 Interpretive Statements SINUS BRADYCARDIA WITH SINUS ARRHYTHMIA WITH SHORT MT INTERVAL WITHIN NORMAL LIMITS Compared to ECG 12/13/2024 09:04:14 NO DIFFERENCE Electronically Signed On 12-13-2024 16:01:37 TUBE DRAW HELPER by Edgar Aranda M.D.
[2024-12-13 12:22] LABS: Troponin I < 0.012 ng/mL (0.000-0.034)
[2024-12-13 13:10] VITALS: BP 113/82; PULSE 73; RESP 16; O2SAT 100
== END 2024-12-13 13:11 | disposition home or self-care (01) ==
PROVIDERS: Emergency Medicine; Emergency Provider General Practice; PCP Nurse Practitioner Family
DX: R07.89 Other chest pain (principal); E03.9 Hypothyroidism, unspecified; E66.9 Obesity, unspecified; Z68.32 Body mass index [BMI] 32.0-32.9, adult; Z79.899 Other long term (current) drug therapy; R00.1 Bradycardia, unspecified
CPT/HCPCS: 36415; 71046; 80053; 81003; 81025; 83690; 84439; 84443; 84480; 84484; 85025; 85610; 85730; 93005; 99284